=== PATIENT | male | born 1970 | race Caucasian/White ===

== ENCOUNTER 2020-05-04 16:39 | Inpatient (IN) | payer OTHER, SELFPAY ==
[2020-05-04] VITALS (43 sets, daily range): BP systolic 145–172; BP diastolic 95–108; PULSE 101–119; RESP 10–25; TEMP 36.1–36.4; O2SAT 0–100
--- NOTE | 2020-05-04 16:45 | RT.EKG_ITS ---
APPROVED REPORT Exam: Resting ECG Patient Location: E HR:113 bpm ECG Measurements Heart Rate 113 AXIS WI 145 P 23 QRSd 80 QRS 30 QT 304 T -5 QTc 417 Conclusion Sinus tachycardia, rate 113, LVH.
--- NOTE | 2020-05-04 16:49 | ED.GENADUL_ITS ---
Discharge Plan Disposition Patient Disposition: [facility] INPATIENT Condition: Serious Discharge Details Chief Complaint: Abd Prob Clinical Impression: DKA (diabetic ketoacidoses) Primary Care Provider: None,None ED Provider: Kayden Pascual Home Meds and New Rx's Prescriptions: No Action Lantus U-100 Insulin 100 UNITS/ML solution 44 unit SQ HS RF: 0 insulin aspart U-100 [Novolog PenFill U-100 Insulin] 100 UNIT/ML cartridge 1 - 10 unit SQ DIRECTED RF: 0 Medical Decision Making 49-year-old gentleman history of diabetes, both long-acting and sliding scale insulin, hypertension, pancreatitis, history of alcohol abuse, presents generally not feeling well for the past 6 days, worse over the past 3, has not taking any insulin or checked his glucose levels. Glucose upon arrival is in the mid 500s. Clinically he is tachycardic, appears dry. Clinically he appears more likely DKA than pancreatitis in my opinion. I do also question if there could be a component of intoxication or withdrawal. He denies any recent illness or trauma. Will obtain IV access, give 2 L IV fluid, initiate laboratory values, cardiac work-up, chest x-ray, EKG, VBG, reassess. Upon reevaluation heart rate is now 112. No significant change in his hypertension. He is requesting medication for his chronic back pain. Reports that he does occasionally take gabapentin or Flexeril but they do not really help. We will give 30 IV Toradol. Laboratory values reveal a white blood cell count of 7.16 hemoglobin 16.8 hematocrit 48.1 platelet count 173. INR 1.1 VBG pH 7.27, glucose 506, creatinine 1.27 with a GFR greater than 60. Magnesium 1.7 total bili 0.9 troponin less than 0.05 lipase 41. Sodium 127 potassium 3.8, dioxide 17.1, anion gap 18.9. Calcium 9.8 urinalysis greater than 160 ketones. Laboratory values are consistent with DKA. Patient will be given 10 IV insulin and initiate an insulin drip. Case to be discussed with our hospitalist team, Dr. Galaviz, for admission to our ICU. He evaluated the patient personally in the ER, is agreeable to admission. Medical Records Medical records reviewed: Yes I reviewed the patient's medical records. Imaging Data Radiologic Study: Attestation: I personally reviewed and interpreted this imaging study as follows: Imaging: X-Ray Radiologist's impression: No acute findings, chest Lab Data Lab results reviewed: Yes I reviewed the patient's lab results. Lab results narrative: Laboratory Tests Range/Units 05/04/20 05/04/20 05/04/20 17:00 17:00 17:00 WBC (4.4-10.8) 10^3/uL 7.16 RBC (4.36-5.78) 10^6/uL 5.38 Hgb (13.5-17.5) g/dL 16.8 Hct (40.0-50.0) % 48.1 MCV (80-95) fL 89.4 MCH (27.0-33.0) pg 31.2 MCHC (32.0-36.0) % 34.9 RDW (11.8-14.1) % 11.1 L Plt Count (130-400) 10^3/uL 173 MPV (8.0-11.0) fL 9.7 Immature Gran % 0.3 Neutrophils % 57.2 Lymphocytes % 33.5 Monocytes % 7.0 Eosinophils % 1.0 Basophils % 1.0 Nucleated RBC % % 0 Absolute Neutrophils (1.2-6.7) 10^3/uL 4.10 Absolute Lymphocytes (1.2-3.4) 10^3/uL 2.40 Absolute Monocytes (0.1-0.8) 10^3/uL 0.50 Absolute Eosinophils (0.0-0.7) 10^3/uL 0.07 Absolute Basophils (0.0-0.2) 10^3/uL 0.07 PT (9.3-11.0) sec 11.2 H INR (0.9-1.1) 1.1 APTT (21.0-27.5) sec 25.9 VBG pH (7.31-7.41) VBG pCO2 (41-51) mmHg VBG pO2 mmHg VBG HCO3 (23-28) mmol/L VBG Total CO2 (24-29) mmol/L VBG O2 Saturation % VBG Base Excess (-2-3) mmol/L Sodium (136-145) mmol/L 127 L Potassium (3.5-5.1) mmol/L 3.8 Chloride (98-107) mmol/L 91 L Carbon Dioxide (21.0-32.0) mmol/L 17.1 L Anion Gap (3-11) mmol/L 18.9 H BUN (7-18) mg/dL 12 Creatinine (0.70-1.30) mg/dL 1.27 Estimated GFR/1.73 m2 (mL/min/1.73m2) >= 60.00 Glucose (74-106) mg/dL 506 H* Calcium (8.5-10.1) mg/dL 9.8 Magnesium (1.8-2.4) mg/dL 1.7 L Total Bilirubin (0.2-1.0) mg/dL 0.9 AST (15-37) U/L 81 H ALT (16-63) U/L 80 H Alkaline Phosphatase (46-116) U/L 136 H Troponin I (<0.06) ng/mL < 0.05 Total Protein (6.4-8.2) g/dL 8.9 H Albumin (3.4-5.0) g/dL 4.3 Lipase (73-393) U/L 41 Urine Color (Yellow) Urine Clarity (Clear) Urine pH (5-8) Ur Specific [place] (1.005-1.025) Urine Protein (Negative) mg/dL Urine Ketones (Negative) mg/dL Urine Blood (Negative) Urine Nitrite (Negative) Urine Bilirubin (Negative) Urine Urobilinogen (Up TO 0.2) EU/dL Ur Leukocyte Esterase (Negative) Urine RBC (0-2) HPF Urine WBC (0-5) HPF Ur Epithelial Cells (Negative) HPF Urine Crystals (Negative) HPF Urine Bacteria (Negative) HPF Urine Casts (Negative) LPF Urine Mucus (Negative) Urine Other (Negative) Ur Culture Indicated? Urine Glucose (Negative) mg/dL Urine Opiates Screen (Negative) Urine Methadone Screen (Negative) Ur Barbiturates Screen (Negative) Ur Tricyclics Screen (Negative) Ur Amphetamines Screen (Negative) U Benzodiazepines Scrn (Negative) Urine Cocaine Screen (Negative) Ur THC Screen (Negative) Ethyl Alcohol (<3) mg/dL Range/Units 05/04/20 05/04/20 05/04/20 17:07 17:07 17:40 WBC (4.4-10.8) 10^3/uL RBC (4.36-5.78) 10^6/uL Hgb (13.5-17.5) g/dL Hct (40.0-50.0) % MCV (80-95) fL MCH (27.0-33.0) pg MCHC (32.0-36.0) % RDW (11.8-14.1) % Plt Count (130-400) 10^3/uL MPV (8.0-11.0) fL Immature Gran % Neutrophils % Lymphocytes % Monocytes % Eosinophils % Basophils % Nucleated RBC % % Absolute Neutrophils (1.2-6.7) 10^3/uL Absolute Lymphocytes (1.2-3.4) 10^3/uL Absolute Monocytes (0.1-0.8) 10^3/uL Absolute Eosinophils (0.0-0.7) 10^3/uL Absolute Basophils (0.0-0.2) 10^3/uL PT (9.3-11.0) sec INR (0.9-1.1) APTT (21.0-27.5) sec VBG pH (7.31-7.41) VBG pCO2 (41-51) mmHg VBG pO2 mmHg VBG HCO3 (23-28) mmol/L VBG Total CO2 (24-29) mmol/L VBG O2 Saturation % VBG Base Excess (-2-3) mmol/L Sodium (136-145) mmol/L Potassium (3.5-5.1) mmol/L Chloride (98-107) mmol/L Carbon Dioxide (21.0-32.0) mmol/L Anion Gap (3-11) mmol/L BUN (7-18) mg/dL Creatinine (0.70-1.30) mg/dL Estimated GFR/1.73 m2 (mL/min/1.73m2) Glucose (74-106) mg/dL Calcium (8.5-10.1) mg/dL Magnesium (1.8-2.4) mg/dL Total Bilirubin (0.2-1.0) mg/dL AST (15-37) U/L ALT (16-63) U/L Alkaline Phosphatase (46-116) U/L Troponin I (<0.06) ng/mL Total Protein (6.4-8.2) g/dL Albumin (3.4-5.0) g/dL Lipase (73-393) U/L Urine Color (Yellow) Yellow Urine Clarity (Clear) Clear Urine pH (5-8) 6.0 Ur Specific [place] (1.005-1.025) 1.020 Urine Protein (Negative) mg/dL Negative Urine Ketones (Negative) mg/dL >=160 H Urine Blood (Negative) Trace-intact H Urine Nitrite (Negative) Negative Urine Bilirubin (Negative) Small H Urine Urobilinogen (Up TO 0.2) EU/dL 1.0 H Ur Leukocyte Esterase (Negative) Negative Urine RBC (0-2) HPF 0-2 Urine WBC (0-5) HPF Negative Ur Epithelial Cells (Negative) HPF Negative Urine Crystals (Negative) HPF Negative Urine Bacteria (Negative) HPF Negative Urine Casts (Negative) LPF Negative Urine Mucus (Negative) Negative Urine Other (Negative) Negative Ur Culture Indicated? No Urine Glucose (Negative) mg/dL 500 H Urine Opiates Screen (Negative) Negative Urine Methadone Screen (Negative) Negative Ur Barbiturates Screen (Negative) Negative Ur Tricyclics Screen (Negative) Positive A Ur Amphetamines Screen (Negative) Negative U Benzodiazepines Scrn (Negative) Negative Urine Cocaine Screen (Negative) Negative Ur THC Screen (Negative) Negative Ethyl Alcohol (<3) mg/dL < 3.0 Range/Units 05/04/20 18:16 WBC (4.4-10.8) 10^3/uL RBC (4.36-5.78) 10^6/uL Hgb (13.5-17.5) g/dL Hct (40.0-50.0) % MCV (80-95) fL MCH (27.0-33.0) pg MCHC (32.0-36.0) % RDW (11.8-14.1) % Plt Count (130-400) 10^3/uL MPV (8.0-11.0) fL Immature Gran % Neutrophils % Lymphocytes % Monocytes % Eosinophils % Basophils % Nucleated RBC % % Absolute Neutrophils (1.2-6.7) 10^3/uL Absolute Lymphocytes (1.2-3.4) 10^3/uL Absolute Monocytes (0.1-0.8) 10^3/uL Absolute Eosinophils (0.0-0.7) 10^3/uL Absolute Basophils (0.0-0.2) 10^3/uL PT (9.3-11.0) sec INR (0.9-1.1) APTT (21.0-27.5) sec VBG pH (7.31-7.41) 7.27 L VBG pCO2 (41-51) mmHg 27 L VBG pO2 mmHg 116 VBG HCO3 (23-28) mmol/L 12 L VBG Total CO2 (24-29) mmol/L 11 L VBG O2 Saturation % 98 VBG Base Excess (-2-3) mmol/L -15 L Sodium (136-145) mmol/L Potassium (3.5-5.1) mmol/L Chloride (98-107) mmol/L Carbon Dioxide (21.0-32.0) mmol/L Anion Gap (3-11) mmol/L BUN (7-18) mg/dL Creatinine (0.70-1.30) mg/dL Estimated GFR/1.73 m2 (mL/min/1.73m2) Glucose (74-106) mg/dL Calcium (8.5-10.1) mg/dL Magnesium (1.8-2.4) mg/dL Total Bilirubin (0.2-1.0) mg/dL AST (15-37) U/L ALT (16-63) U/L Alkaline Phosphatase (46-116) U/L Troponin I (<0.06) ng/mL Total Protein (6.4-8.2) g/dL Albumin (3.4-5.0) g/dL Lipase (73-393) U/L Urine Color (Yellow) Urine Clarity (Clear) Urine pH (5-8) Ur Specific [place] (1.005-1.025) Urine Protein (Negative) mg/dL Urine Ketones (Negative) mg/dL Urine Blood (Negative) Urine Nitrite (Negative) Urine Bilirubin (Negative) Urine Urobilinogen (Up TO 0.2) EU/dL Ur Leukocyte Esterase (Negative) Urine RBC (0-2) HPF Urine WBC (0-5) HPF Ur Epithelial Cells (Negative) HPF Urine Crystals (Negative) HPF Urine Bacteria (Negative) HPF Urine Casts (Negative) LPF Urine Mucus (Negative) Urine Other (Negative) Ur Culture Indicated? Urine Glucose (Negative) mg/dL Urine Opiates Screen (Negative) Urine Methadone Screen (Negative) Ur Barbiturates Screen (Negative) Ur Tricyclics Screen (Negative) Ur Amphetamines Screen (Negative) U Benzodiazepines Scrn (Negative) Urine Cocaine Screen (Negative) Ur THC Screen (Negative) Ethyl Alcohol (<3) mg/dL ECG Data Attestation: I personally reviewed and interpreted this ECG (s) as follows: Interpretation: Please see official report by Dr. Ulloa. Sinus tachycardia, rate of 113, LVH HPI General Mode of arrival: ambulatory . Date/Time Provider Initiated Documentation: 05/04/20 16:41 . Limitations to Documentation: no limitations . Information obtained by: patient . HPI Narrative: This is a 49-year-old gentleman with a past medical history that includes hypertension, diabetes, hyponatremia, pancreatitis, history of alcohol abuse, presenting to the ER for multiple complaints. He reports that he did have 6 or 7 beers approximately 6 days ago. The following day he simply did not feel well, loss of appetite, generalized weakness, abdominal bloating, pain, nausea. Denies vomiting. He states that he had pancreatitis approximately 6 months ago and really has not drank much since then. Reports this feels somewhat similar to his pancreatitis. He states that he has not checked his blood sugar levels or taking any of his insulin over the past 3 days. He tells me that he was admitted to [facility] over the past couple of months for DKA, this to feel somewhat similar. He denies recent illness or trauma. He denies headache, visual change, neck pain, fever, chest pain, shortness of breath, diarrhea, constipation, dysuria, numbness, tingling, focal weakness. He does report chronic back pain Related Data Home Medications Medication Instructions Recorded Confirmed insulin aspart U-100 [Novolog] 1 - 10 unit SQ DIRECTED 07/08/15 05/04/20 insulin glargine [Lantus Vial] 44 unit SQ HS 07/08/15 05/04/20 Allergies Allergy/AdvReac Type Severity Reaction Status Date / Time No Known Allergies Allergy Unverified 05/04/20 17:05 Review of Systems Constitutional Constitutional: Reports fatigue and Denies fever(s) Eyes Eyes: Denies change in vision ENT Ears, Nose, Mouth, and Throat: Denies neck pain Cardiovascular Cardiovascular: Denies chest pain and Denies dyspnea Respiratory Respiratory: Denies cough and Denies dyspnea Gastrointestinal Gastrointestinal: Reports abdominal pain, Denies constipation, Denies diarrhea, Reports nausea and Denies vomiting Genitourinary Genitourinary: Denies dysuria Musculoskeletal Musculoskeletal: Reports back pain, Denies neck pain, Denies numbness and Denies tingling Integumentary/Breasts Skin/Breast: Denies rash Neurologic Neurologic: Denies numbness, Denies tingling and Reports weakness (Generalized) Endocrine Endocrine: Reports fatigue [facility] Social History Smoking/Tobacco Use Status: Current every day Tobacco Type: cigarettes Smoking risk assessment performed?: Yes Alcohol Intake: current Alcohol Intake frequency: holidays/special occasions only Drug use: Never Substance use type: does not use Do you feel safe at home: Yes Do you feel safe in your relationship?: Yes Exam Const General: cooperative and no acute distress Orientation: alert, awake and oriented x3 HENMT Head: normal to inspection, normocephalic and atraumatic Face and sinus: normal facial exam Mouth: moist mucous membranes abnormal (Dry) Eyes General: appearance normal, both eyes and all related structures Eyelids: eyelids normal Conjunctivae: conjunctivae normal Neck Neck: normal visual inspection, full ROM, no meningeal signs, trachea midline and supple Resp Effort & Inspection: normal respiratory effort and able to speak in complete sentences Auscultation: clear to auscultation bilaterally Cardio Rate: tachycardic (120s) Rhythm: regular rhythm GI Palpation: soft, not firm, no guarding and tender (Mild epigastric to moderate palpation) with no rebound tenderness Auscultation: normal bowel sounds Back/Spine/Pelvis Back: back tenderness (Diffuse mild lumbar) Skin General skin exam: no rashes or lesions noted Neuro General: patient alert, patient awake, patient oriented x3, moves all extremities and no focal motor deficits Cognition: normal cognition Speech: speech normal Gait: normal gait Motor: muscle tone normal throughout Sensory Exam: no sensory deficits noted Extrem General: normal to inspection, full ROM, capillary refill normal, no pedal edema and no calf tenderness Psych Appearance: grossly normal Mental Status: mental status grossly normal Critical Care Time Critical Care Time Critical Care Time: Yes Total Critical Care Time: 35 Attestation: Upon my evaluation, this patient had a high probability of clinically significant, life-threatening deterioration due to their current medical conditions, which required my direct attention, intervention, and personal management. I have personally provided greater than 30 minutes of critical care time exclusive of the time spend on separately billable procedure s. Time includes obtaining a history, examining the patient, pulse oximetry, review of laboratory data, radiology results, discussion with consultants, arranging urgent treatment with development of a management plan, evaluation of patient's response to treatment, and monitoring for potential decompensation. Interventions were performed as documented above.
--- NOTE | 2020-05-04 17:00 | DI.RAD_ITS ---
EXAM: XR CHEST 2V PA LATERAL CLINICAL HISTORY: abd pain. TECHNIQUE: 2D digital imaging was performed. COMPARISON: No exams were available for comparison FINDINGS: Heart size is normal. The mediastinum is not widened. Left lung is clear. There is minor subsegmental platelike atelectasis in the lower right lung field, probably in the right middle lobe. No confluent infiltrates. No pleural effusions. IMPRESSION: Very subtle subsegmental platelike atelectasis in the right lung base. DATA REPOSITORY: RADIATION DOSE DELIVERED:
[2020-05-04] MEDS: Normal Saline 1,000 ML 1000 ML IV ×3 (17:16→21:05)
[2020-05-04 17:17] LABS: Abs Immature Grans 0.02 10^3/uL (0.0-0.06); Absolute Basophil Count 0.07 10^3/uL (0.0-0.2); Absolute Eosinophil Count 0.07 10^3/uL (0.0-0.7); HCT 48.1 % (40.0-50.0); HGB 16.8 g/dL (13.5-17.5); Immature Grans % 0.3; Lymphocytes % 33.5; MCH 31.2 pg (27.0-33.0); MCHC 34.9 % (32.0-36.0); MCV 89.4 fL (80-95); MPV 9.7 fL (8.0-11.0); Neutrophils % 57.2; Nucleated RBC 0 %; Platelet Count 173 10^3/uL (130-400); RBC 5.38 10^6/uL (4.36-5.78); RDW 11.1 % (11.8-14.1); RDW-SD 36.2 fL; WBC 7.16 10^3/uL (4.4-10.8)
[2020-05-04 17:30] LABS: INR 1.1 (0.9-1.1); PTT Activated 25.9 sec (21.0-27.5); Prothrombin Time 11.2 sec (9.3-11.0)
[2020-05-04 17:32] LABS: ALT 80 U/L (16-63); AST 81 U/L (15-37); Albumin 4.3 g/dL (3.4-5.0); Alkaline Phosphatase 136 U/L (46-116); Anion Gap 18.9 mmol/L (3-11); BUN 12 mg/dL (7-18); Bilirubin, Total 0.9 mg/dL (0.2-1.0); CO2 17.1 mmol/L (21.0-32.0); CREATININE 1.27 mg/dL (0.70-1.30); Calcium 9.8 mg/dL (8.5-10.1); Chloride 91 mmol/L (98-107); Lipase 41 U/L (73-393); Magnesium 1.7 mg/dL (1.8-2.4); Potassium 3.8 mmol/L (3.5-5.1); Sodium 127 mmol/L (136-145); Total Protein 8.9 g/dL (6.4-8.2)
[2020-05-04 17:34] LABS: Bilirubin Small (Negative); Blood Trace-intact (Negative); Clarity Clear (Clear); Glucose 500 mg/dL (Negative); Ketones >=160 mg/dL (Negative); Leukocyte Esterase Negative (Negative); Nitrite Negative (Negative)
[2020-05-04 17:35] LABS: Glucose 506 mg/dL (74-106); Troponin I < 0.05 ng/mL (<0.06)
[2020-05-04] MEDS: Ketorolac 30 MG/ML VIAL IVP (17:44)
[2020-05-04 17:50] LABS: Bacteria Negative HPF (Negative); C & S Indicated? No; Casts Negative LPF (Negative); Crystals Negative HPF (Negative); Epithelial Cells Negative HPF (Negative); Mucus Negative (Negative); Other Cells Negative (Negative); RBC 0-2 HPF (0-2); WBC Negative HPF (0-5)
--- NOTE | 2020-05-04 18:10 | DI.VRAD_ITS ---
PROCEDURE INFORMATION: Exam: XR Chest, 2 Views Exam date and time: 05/04/2020 6:04 PM Age: 49 years old Clinical indication: Other: Pain TECHNIQUE: Imaging protocol: XR of the chest Views: 2 views. COMPARISON: No relevant prior studies available. FINDINGS: Lungs: Unremarkable. No consolidation. Pleural space: Unremarkable. No pleural effusion. No pneumothorax. Heart/Mediastinum: Unremarkable. No cardiomegaly. Bones/joints: Unremarkable. IMPRESSION: No acute findings. Dictated and Authenticated by: Breonna Pantoja MD. Ordering:LOYD Monique MD
[2020-05-04 18:22] LABS: BE (Venous) -15 mmol/L (-2-3); HCO3 (Venous) 12 mmol/L (23-28); O2 Sat (Venous) 98 %; TCO2 (Venous) 11 mmol/L (24-29); pCO2 (Venous) 27 mmHg (41-51); pH (Venous) 7.27 (7.31-7.41); pO2 (Venous) 116 mmHg
[2020-05-04] MEDS: Insulin REGULAR-Human 100 UNITS/ML UNIT 10 UNITS IV (18:55)
[2020-05-04 19:03] LABS: ETHANOL BLOOD < 3.0 mg/dL (<3)
--- NOTE | 2020-05-04 19:03 | W.PM.HP.N ---
Date of service: 05/04/20 Time of Service: 20:03 Assessment and Plan Assessment and plan (1) DKA (diabetic ketoacidoses): Status: Acute Assessment and plan: DKA. Will place on [place] protocol with insulin infusion at 0.1 unit/kg/hr with aggressive IV hydration. Will add potassium supplementation and monitor electrolytes q 2h for now. No clearly evident initial precipitant for symptoms but alcoholic gastritis most likely; will place on PPI. In turn the only evident precipitant for the DKA per se is the stopping of his insulin. History of Present Illness History of Present Illness Chief Complaint: weakness Narrative: 49 male with h/o DM. Listed as type 2 but does have h/o DKA in 2015 so he is likely better classified as GERALDO. Maintained on 44 Lantus plus SS. had some binge drinking about a week ago, and over past 4-5 days has noted some anorexia, slight epigastric discomfort (none right now) and generalized weakness. Stopped his insulin 2 days ago. In ER findings of note for glucose 506 with HCO3 18, ph 7.27 and urine + for ketones. Note prior h/o pancreatitis but Lipase normal today. Has been ordered for 10 units insulin and IVF. Admitted for further management. Review of Systems All systems reviewed & are unremarkable except as noted in HPI and below PFSH Social History Smoking/Tobacco Use Status: Current every day Tobacco Type: cigarettes Smoking risk assessment performed?: Yes Alcohol Intake: current Alcohol Intake frequency: holidays/special occasions only Drug use: Never Substance use type: does not use Do you feel safe at home: Yes Do you feel safe in your relationship?: Yes Meds Home Medications and Allergies Home Medications Medication Instructions Recorded Confirmed Type insulin aspart U-100 [Novolog] 1 - 10 unit SQ DIRECTED 07/08/15 05/04/20 History insulin glargine [Lantus Vial] 44 unit SQ HS 07/08/15 05/04/20 History Allergies Allergy/AdvReac Type Severity Reaction Status Date / Time No Known Allergies Allergy Unverified 05/04/20 17:05 Exam Narrative Exam Narrative: 149/106, 119, 36.1, 16, 99% RA. HEENT atraumatic; neck supple; lungs clear; heart tachy/regular; abdomen + BS soft and NT; extremities w/o edema; neuro Ox3, moves all 4s Results Labs Result diagrams: 05/04/20 17:00 05/04/20 17:00 Labs: Laboratory Results - last 24 hr 05/04/20 05/04/20 05/04/20 17:00 17:00 17:00 WBC 7.16 RBC 5.38 Hgb 16.8 Hct 48.1 MCV 89.4 MCH 31.2 MCHC 34.9 RDW 11.1 L Plt Count 173 MPV 9.7 Immature Gran % 0.3 Neutrophils % 57.2 Lymphocytes % 33.5 Monocytes % 7.0 Eosinophils % 1.0 Basophils % 1.0 Nucleated RBC % 0 Absolute Neutrophils 4.10 Absolute Lymphocytes 2.40 Absolute Monocytes 0.50 Absolute Eosinophils 0.07 Absolute Basophils 0.07 PT 11.2 H INR 1.1 APTT 25.9 VBG pH VBG pCO2 VBG pO2 VBG HCO3 VBG Total CO2 VBG O2 Saturation VBG Base Excess Sodium 127 L Potassium 3.8 Chloride 91 L Carbon Dioxide 17.1 L Anion Gap 18.9 H BUN 12 Creatinine 1.27 Estimated GFR/1.73 m2 >= 60.00 Glucose 506 H* Calcium 9.8 Magnesium 1.7 L Total Bilirubin 0.9 AST 81 H ALT 80 H Alkaline Phosphatase 136 H Troponin I < 0.05 Total Protein 8.9 H Albumin 4.3 Lipase 41 Urine Color Urine Clarity Urine pH Ur Specific [place] Urine Protein Urine Ketones Urine Blood Urine Nitrite Urine Bilirubin Urine Urobilinogen Ur Leukocyte Esterase Urine RBC Urine WBC Ur Epithelial Cells Urine Crystals Urine Bacteria Urine Casts Urine Mucus Urine Other Ur Culture Indicated? Urine Glucose 05/04/20 05/04/20 17:07 18:16 WBC RBC Hgb Hct MCV MCH MCHC RDW Plt Count MPV Immature Gran % Neutrophils % Lymphocytes % Monocytes % Eosinophils % Basophils % Nucleated RBC % Absolute Neutrophils Absolute Lymphocytes Absolute Monocytes Absolute Eosinophils Absolute Basophils PT INR APTT VBG pH 7.27 L VBG pCO2 27 L VBG pO2 116 VBG HCO3 12 L VBG Total CO2 11 L VBG O2 Saturation 98 VBG Base Excess -15 L Sodium Potassium Chloride Carbon Dioxide Anion Gap BUN Creatinine Estimated GFR/1.73 m2 Glucose Calcium Magnesium Total Bilirubin AST ALT Alkaline Phosphatase Troponin I Total Protein Albumin Lipase Urine Color Yellow Urine Clarity Clear Urine pH 6.0 Ur Specific [place] 1.020 Urine Protein Negative Urine Ketones >=160 H Urine Blood Trace-intact H Urine Nitrite Negative Urine Bilirubin Small H Urine Urobilinogen 1.0 H Ur Leukocyte Esterase Negative Urine RBC 0-2 Urine WBC Negative Ur Epithelial Cells Negative Urine Crystals Negative Urine Bacteria Negative Urine Casts Negative Urine Mucus Negative Urine Other Negative Ur Culture Indicated? No Urine Glucose 500 H Last Vital Signs Temp 36.1 C L 05/04/20 16:47 Pulse 119 H 05/04/20 16:47 Resp 16 05/04/20 16:47 BP 149/106 H 05/04/20 16:47 Pulse Ox 99 05/04/20 16:47 COVID-19 Screening Have you, or household traveled for leisure in last 14 days?: No Had IN PERSON contact w/suspected or confirmed C-19 person: No
[2020-05-04 19:05] LABS: *AMPHETAMINES SCREEN URINE Negative (Negative); *BARBITURATES SCREEN URINE Negative (Negative); *BENZODIAZEPINES SCREEN URINE Negative (Negative); Cannabinoids THC Negative (Negative); Cocaine Screen,Urine Negative (Negative); METHADONE URINE SCREEN Negative (Negative); OPIATES URINE SCREEN Negative (Negative); Tricyclic Antidepressants POSITIVE (Negative)
[2020-05-04] MEDS: INSULIN REGULAR IN 0.9 % NACL 100 UNIT/100 ML BAG IV (19:27)
[2020-05-04 20:34] LABS: Anion Gap 15.7 mmol/L (3-11); CO2 16.3 mmol/L (21.0-32.0); Chloride 100 mmol/L (98-107); Potassium 3.6 mmol/L (3.5-5.1); Sodium 132 mmol/L (136-145)
[2020-05-04 20:47] LABS: Troponin I < 0.05 ng/mL (<0.06)
[2020-05-04] MEDS: ACETAMINOPHEN 1,000 MG/100 ML BTL 400 MG IVPB (21:02)
[2020-05-04] MEDS: Normal Saline Flush 10 ML SYR IVP (21:06)
[2020-05-04] MEDS: Pantoprazole 40 MG VIAL IVP (21:10)
[2020-05-04 22:50] LABS: Anion Gap 16.5 mmol/L (3-11); CO2 15.5 mmol/L (21.0-32.0); Chloride 101 mmol/L (98-107); Potassium 3.4 mmol/L (3.5-5.1); Sodium 133 mmol/L (136-145)
[2020-05-04] MEDS: POTASSIUM CHLORIDE/0.9% NACL 1,000 ML 200 MEQ IV ×2 (22:55→23:55)
[2020-05-04] MEDS: oxyCODONE 5 MG TAB PO (23:52)
[2020-05-04] MEDS: Potassium Chloride 20 MEQ TABCR PO (23:53)
[2020-05-05] VITALS (30 sets, daily range): BP systolic 146–169; BP diastolic 93–112; PULSE 92–108; RESP 7–25; TEMP 35.9–36.6; O2SAT 93–100
[2020-05-05 01:09] LABS: Anion Gap 11.5 mmol/L (3-11); CO2 20.5 mmol/L (21.0-32.0); Chloride 102 mmol/L (98-107); Potassium 3.9 mmol/L (3.5-5.1); Sodium 134 mmol/L (136-145)
[2020-05-05] MEDS: POTASSIUM CHLORIDE/D5-0.9%NACL 1,000 ML 200 MEQ IV ×2 (01:51→06:56)
[2020-05-05 03:41] LABS: Anion Gap 9.2 mmol/L (3-11); CO2 23.8 mmol/L (21.0-32.0); Chloride 104 mmol/L (98-107); Sodium 137 mmol/L (136-145)
[2020-05-05] MEDS: oxyCODONE 5 MG TAB PO ×5 (03:56→20:19)
[2020-05-05 07:18] LABS: Chloride 102 mmol/L (98-107); Potassium 3.5 mmol/L (3.5-5.1); Sodium 137 mmol/L (136-145)
[2020-05-05] MEDS: Lisinopril 10 MG TAB PO (08:18)
[2020-05-05 09:41] LABS: Anion Gap 6.1 mmol/L (3-11); BUN 5 mg/dL (7-18); CO2 24.9 mmol/L (21.0-32.0); Calcium 8.1 mg/dL (8.5-10.1); Chloride 102 mmol/L (98-107); Glucose 127 mg/dL (74-106); Potassium 3.4 mmol/L (3.5-5.1); Sodium 133 mmol/L (136-145)
--- NOTE | 2020-05-05 10:58 | W.PM.PROGNOT ---
Date of Service Date of service: 05/05/20 Time of Service: 10:58 Assessment and Plan Assessment and plan (1) DKA (diabetic ketoacidoses): Status: Acute Assessment and plan: Repeat BMP at noon and if anion gap remains closed we will start basal bolus insulin. His home dose of Lantus is 44 units nightly and he takes NovoLog with a 1:10 ratio of insulin to carbohydrates. He also uses a sliding scale at a ratio of 1:30 for any glucose readings above 150 mg/dL. If he continues to tolerate his diet his anion gap does not increase over the course the afternoon he could potentially be discharged home this evening. Qualifiers: Diabetes mellitus type: other specified (including KRYS) Diabetes mellitus complication detail: without coma Qualified Code(s): E13.10 - Other specified diabetes mellitus with ketoacidosis without coma (2) Essential hypertension: Status: Acute Assessment and plan: Patient is carried a history of hypertension on his chart but he is currently not on any medications at home. Patient will be started on lisinopril 10 mg daily due to persistent hypertension here in the hospital. Subjective Subjective Interval history since last seen: See admission H&P from last night for details. In summary this 49-year-old male with late onset type 1 diabetes mellitus presented to the emergency department in diabetic ketoacidosis after discontinuing his insulin about 3 days ago. He states he quit taking his insulin because he was nauseated and was having trouble now keeping food down. He figured since he was not eating he should not take his insulin. This was preceded by a binge of drinking. He had had several beers couple days prior to that. He has a former history of alcoholism but has been abstinent for a long time until that episode of binge drinking. He denies any fevers chills and presently denies any nausea or vomiting and is actually hungry and wants to eat. He has been on insulin drip at 2 units an hour and his blood sugars by fingerstick this morning were 119 at 8 AM and 137 at 9 AM. His anion gap had been closing last night was down to 9.2 at 3 AM but at 6:50 AM his anion gap went up to 14. No further BMPs were ordered by the night hospitalist. I have ordered repeat BMP at 9 AM and it is since come back showing his anion gap down to 6.1 with a glucose of 127 and potassium of 3.4. He is receiving IV and oral potassium replacement. I will get another BMP at noon time and if his anion gap remains closed I will make the conversion over to basal bolus insulin and stop his drip after an overlap of 90 minutes. Patient denies any antecedent chest pain or dyspnea or fever or chills and has not been around any ill people. He lives with his mother and his girlfriend. They have all been healthy. Exam Narrative Exam Narrative: Middle-age male alert and oriented person place time circumstance sitting up in bed eating his breakfast. Lungs clear to auscultation. Heart regular rate and rhythm without murmur rub or gallop. Abdomen soft nondistended normal active bowel sounds nontender no guarding or rebound tenderness. Extremities without peripheral cyanosis or edema. He has some calluses on his feet but there is no open sores on his feet or toes. Objective Last Vital Signs Temp 35.9 C L 05/05/20 08:00 Pulse 99 H 05/05/20 07:27 Resp 20 05/05/20 07:27 BP 160/107 H 05/05/20 07:27 Pulse Ox 98 05/05/20 07:27 Laboratory Results - last 24 hr 05/04/20 05/04/20 05/04/20 17:00 17:00 17:00 WBC 7.16 RBC 5.38 Hgb 16.8 Hct 48.1 MCV 89.4 MCH 31.2 MCHC 34.9 RDW 11.1 L Plt Count 173 MPV 9.7 Immature Gran % 0.3 Neutrophils % 57.2 Lymphocytes % 33.5 Monocytes % 7.0 Eosinophils % 1.0 Basophils % 1.0 Nucleated RBC % 0 Absolute Neutrophils 4.10 Absolute Lymphocytes 2.40 Absolute Monocytes 0.50 Absolute Eosinophils 0.07 Absolute Basophils 0.07 PT 11.2 H INR 1.1 APTT 25.9 VBG pH VBG pCO2 VBG pO2 VBG HCO3 VBG Total CO2 VBG O2 Saturation VBG Base Excess Sodium 127 L Potassium 3.8 Chloride 91 L Carbon Dioxide 17.1 L Anion Gap 18.9 H BUN 12 Creatinine 1.27 Estimated GFR/1.73 m2 >= 60.00 Glucose 506 H* Calcium 9.8 Magnesium 1.7 L Total Bilirubin 0.9 AST 81 H ALT 80 H Alkaline Phosphatase 136 H Troponin I < 0.05 Total Protein 8.9 H Albumin 4.3 Lipase 41 Urine Color Urine Clarity Urine pH Ur Specific [place] Urine Protein Urine Ketones Urine Blood Urine Nitrite Urine Bilirubin Urine Urobilinogen Ur Leukocyte Esterase Urine RBC Urine WBC Ur Epithelial Cells Urine Crystals Urine Bacteria Urine Casts Urine Mucus Urine Other Ur Culture Indicated? Urine Glucose Urine Opiates Screen Urine Methadone Screen Ur Barbiturates Screen Ur Tricyclics Screen Ur Amphetamines Screen U Benzodiazepines Scrn Urine Cocaine Screen Ur THC Screen Ethyl Alcohol 05/04/20 05/04/20 05/04/20 17:07 17:07 17:40 WBC RBC Hgb Hct MCV MCH MCHC RDW Plt Count MPV Immature Gran % Neutrophils % Lymphocytes % Monocytes % Eosinophils % Basophils % Nucleated RBC % Absolute Neutrophils Absolute Lymphocytes Absolute Monocytes Absolute Eosinophils Absolute Basophils PT INR APTT VBG pH VBG pCO2 VBG pO2 VBG HCO3 VBG Total CO2 VBG O2 Saturation VBG Base Excess Sodium Potassium Chloride Carbon Dioxide Anion Gap BUN Creatinine Estimated GFR/1.73 m2 Glucose Calcium Magnesium Total Bilirubin AST ALT Alkaline Phosphatase Troponin I Total Protein Albumin Lipase Urine Color Yellow Urine Clarity Clear Urine pH 6.0 Ur Specific [place] 1.020 Urine Protein Negative Urine Ketones >=160 H Urine Blood Trace-intact H Urine Nitrite Negative Urine Bilirubin Small H Urine Urobilinogen 1.0 H Ur Leukocyte Esterase Negative Urine RBC 0-2 Urine WBC Negative Ur Epithelial Cells Negative Urine Crystals Negative Urine Bacteria Negative Urine Casts Negative Urine Mucus Negative Urine Other Negative Ur Culture Indicated? No Urine Glucose 500 H Urine Opiates Screen Negative Urine Methadone Screen Negative Ur Barbiturates Screen Negative Ur Tricyclics Screen Positive A Ur Amphetamines Screen Negative U Benzodiazepines Scrn Negative Urine Cocaine Screen Negative Ur THC Screen Negative Ethyl Alcohol < 3.0 05/04/20 05/04/20 05/04/20 18:16 20:09 20:09 WBC RBC Hgb Hct MCV MCH MCHC RDW Plt Count MPV Immature Gran % Neutrophils % Lymphocytes % Monocytes % Eosinophils % Basophils % Nucleated RBC % Absolute Neutrophils Absolute Lymphocytes Absolute Monocytes Absolute Eosinophils Absolute Basophils PT INR APTT VBG pH 7.27 L VBG pCO2 27 L VBG pO2 116 VBG HCO3 12 L VBG Total CO2 11 L VBG O2 Saturation 98 VBG Base Excess -15 L Sodium 132 L Potassium 3.6 Chloride 100 Carbon Dioxide 16.3 L Anion Gap 15.7 H BUN Creatinine Estimated GFR/1.73 m2 Glucose Calcium Magnesium Total Bilirubin AST ALT Alkaline Phosphatase Troponin I < 0.05 Total Protein Albumin Lipase Urine Color Urine Clarity Urine pH Ur Specific [place] Urine Protein Urine Ketones Urine Blood Urine Nitrite Urine Bilirubin Urine Urobilinogen Ur Leukocyte Esterase Urine RBC Urine WBC Ur Epithelial Cells Urine Crystals Urine Bacteria Urine Casts Urine Mucus Urine Other Ur Culture Indicated? Urine Glucose Urine Opiates Screen Urine Methadone Screen Ur Barbiturates Screen Ur Tricyclics Screen Ur Amphetamines Screen U Benzodiazepines Scrn Urine Cocaine Screen Ur THC Screen Ethyl Alcohol 05/04/20 05/05/20 05/05/20 22:37 00:15 03:00 WBC RBC Hgb Hct MCV MCH MCHC RDW Plt Count MPV Immature Gran % Neutrophils % Lymphocytes % Monocytes % Eosinophils % Basophils % Nucleated RBC % Absolute Neutrophils Absolute Lymphocytes Absolute Monocytes Absolute Eosinophils Absolute Basophils PT INR APTT VBG pH VBG pCO2 VBG pO2 VBG HCO3 VBG Total CO2 VBG O2 Saturation VBG Base Excess Sodium 133 L 134 L 137 Potassium 3.4 L 3.9 4.0 Chloride 101 102 104 Carbon Dioxide 15.5 L 20.5 L 23.8 Anion Gap 16.5 H 11.5 H 9.2 BUN Creatinine Estimated GFR/1.73 m2 Glucose Calcium Magnesium Total Bilirubin AST ALT Alkaline Phosphatase Troponin I Total Protein Albumin Lipase Urine Color Urine Clarity Urine pH Ur Specific [place] Urine Protein Urine Ketones Urine Blood Urine Nitrite Urine Bilirubin Urine Urobilinogen Ur Leukocyte Esterase Urine RBC Urine WBC Ur Epithelial Cells Urine Crystals Urine Bacteria Urine Casts Urine Mucus Urine Other Ur Culture Indicated? Urine Glucose Urine Opiates Screen Urine Methadone Screen Ur Barbiturates Screen Ur Tricyclics Screen Ur Amphetamines Screen U Benzodiazepines Scrn Urine Cocaine Screen Ur THC Screen Ethyl Alcohol 05/05/20 05/05/20 06:50 09:23 WBC RBC Hgb Hct MCV MCH MCHC RDW Plt Count MPV Immature Gran % Neutrophils % Lymphocytes % Monocytes % Eosinophils % Basophils % Nucleated RBC % Absolute Neutrophils Absolute Lymphocytes Absolute Monocytes Absolute Eosinophils Absolute Basophils PT INR APTT VBG pH VBG pCO2 VBG pO2 VBG HCO3 VBG Total CO2 VBG O2 Saturation VBG Base Excess Sodium 137 133 L Potassium 3.5 3.4 L Chloride 102 102 Carbon Dioxide 21.0 24.9 Anion Gap 14.0 H 6.1 BUN 5 L Creatinine 0.90 Estimated GFR/1.73 m2 >= 60.00 Glucose 127 H D Calcium 8.1 L Magnesium Total Bilirubin AST ALT Alkaline Phosphatase Troponin I Total Protein Albumin Lipase Urine Color Urine Clarity Urine pH Ur Specific [place] Urine Protein Urine Ketones Urine Blood Urine Nitrite Urine Bilirubin Urine Urobilinogen Ur Leukocyte Esterase Urine RBC Urine WBC Ur Epithelial Cells Urine Crystals Urine Bacteria Urine Casts Urine Mucus Urine Other Ur Culture Indicated? Urine Glucose Urine Opiates Screen Urine Methadone Screen Ur Barbiturates Screen Ur Tricyclics Screen Ur Amphetamines Screen U Benzodiazepines Scrn Urine Cocaine Screen Ur THC Screen Ethyl Alcohol
[2020-05-05] MEDS: Potassium Chloride Liquid 20 MEQ PKT 40 MEQ PO (11:29)
--- NOTE | 2020-05-05 11:51 | PHACLINREV_ITS ---
Pharmacy Admission Review - Admission Clinical Review (Last Reviewed 05/04/20 @ 19:30 by ANTONIO Parsons) DKA (diabetic ketoacidoses) (Acute) No Known Allergies Allergy (Unverified 05/04/20 17:05) Height 5 ft 9 in Weight 77.8 kg DKA - Comments Comments/Follow Ups: Pt had stopped taking insulin and Lisinopril per MD, Alcohol binge. Not sure why OxyIR was ordered except for c/o chronic back pain, patient does not take pain meds in ambulatory setting - Renal Dosing Renal Dosing: BUN 5 mg/dL (7-18) L 05/05/20 09:23 Creatinine 0.90 mg/dL (0.70-1.30) 05/05/20 09:23 Medications needing adjustments: Reviewed (CrCl~100ml/min) - Anticoagulation Anticoagulation: Hgb 16.8 g/dL (13.5-17.5) 05/04/20 17:00 Hct 48.1 % (40.0-50.0) 05/04/20 17:00 Plt Count 173 10^3/uL (130-400) 05/04/20 17:00 INR 1.1 (0.9-1.1) 05/04/20 17:00 Creatinine 0.90 mg/dL (0.70-1.30) 05/05/20 09:23 DVT Prohphylaxis: N/A (mobilization, young age) - Opiate Usage Evaluate Pain Scale/Pains Meds: Reviewed (Oxy IR for ??? shift report states ch ronic back pain, does not use opiates at home) - Relevant Labs Sodium 133 mmol/L (136-145) L 05/05/20 09:23 Potassium 3.4 mmol/L (3.5-5.1) L 05/05/20 09:23 Chloride 102 mmol/L (98-107) 05/05/20 09:23 Magnesium 1.7 mg/dL (1.8-2.4) L 05/04/20 17:00 Electrolytes, C-Reactive P, ESR: Reviewed (Potassium ordered 20meq po TID, Mag has not been replaced at this time) - DM Control DM Control: Glucose 127 mg/dL (74-106) H D 05/05/20 09:23 Finger Stick Blood Glucose 183 Finger Stick Blood Glucose 137 Finger Stick Blood Glucose 119 Insulin Dosing: Reviewed (BG was 506 on admission, now down to 127 with repeat level afternoon-Insulin infusion per [place] protocol currently @ 2ml/hr. May be able to discontinue later today. Starting Lantus and Novolog with scale plus carb counting scale) - Heart Failure/MD Heart Failure/MD: Troponin I < 0.05 ng/mL (<0.06) 05/04/20 20:09 EF%, CODY's, B-Blockers, Diuretics: Reviewed (Lisinopril-hadn't been taking at home) - BP Control BP Control: Blood Pressure 160/107 Blood Pressure 168/107 Blood Pressure 169/112 Blood Pressure 164/101 Blood Pressure 159/112 Blood Pressure 164/99 Blood Pressure 158/107 Blood Pressure 146/96 Blood Pressure 168/108 If elevated: Reviewed (Lisinopril started today) - Qtc Review If Elevated: Reviewed (QTC 417) - Home Meds Home Med List reviewed: Reviewed (Lisinopril not listed as a home med, nothing prescribed for chronic pain)
--- NOTE | 2020-05-05 12:10 | PDOC.CMIN ---
- If Service Date Differs Date of service: 05/05/20 Time of Service: 14:47 Care Management Initial Assess REASON FOR HOSPITALIZATION:: DKA PAST MEDICAL HISTORY/PAST SURGICAL HISTORY:: Current everyday smoker, DM type 2 uncontrolled, hypokalemia, hypocalcemia, alcohol withdrawal, chronic pain, DKA, essential hypertension, phlegmon of pancreas, cervical adenitis, acute on chronic pancreatitis PREVIOUS FUNCTIONAL STATUS/SOCIAL/FAMILY SUPPORTS:: Gildardo resides in [place], [place] with his mother, adarsh and their eleven year old daughter who is currently being homeschooled. He remains independent at baseline in the community. CURRENT FUNCTIONAL STATUS:: Gildardo remains on M/S status in the ICU at this time. He was forthcoming with information and pleasant in interaction. ADVANCE DIRECTIVES:: None on file, reviewed with patient. Has patient been provided with info about the portal/API?: Yes Did the patient sign up for the portal?: No CODE STATUS:: Full Code INSURANCE COVERAGE / FINANCIAL ISSUES:: [employer]. [facility] CURRENT HOME/COMMUNITY SERVICES/EQUIPMENT:: Diabetic supplies, insulin dependent. PRIMARY CARE PHYSICIAN:: None currently; CM to follow protocol for PCP attachment. POTENTIAL DISCHARGE NEEDS:: PCP attachment, follow up appointment. PATIENT/FAMILY EDUCATION NEEDS:: Review discharge instructions, discuss Ask Me Three. ANTICIPATED BARRIERS TO DISCHARGE:: None identified. TRANSPORTATION:: Via private vehicle with family. PLAN:: Gildardo continues to be closely monitored. Anticipate he will return home when ready per MD. Gildardo reports previously engaging in diabetic education at [facility] [place] and feeling confident in managing his own illness. He reports he sometimes become tired of managing his diet and insulin and stops for awhile; resulting in increased illness. He is agreeable to attaching to a local PCP and [facility] but not [facility] to a provider. He will transport via private vehicle with family.
[2020-05-05 12:33] LABS: Anion Gap 7.1 mmol/L (3-11); BUN 5 mg/dL (7-18); CO2 23.9 mmol/L (21.0-32.0); CREATININE 0.81 mg/dL (0.70-1.30); Calcium 8.2 mg/dL (8.5-10.1); Chloride 100 mmol/L (98-107); Glucose 191 mg/dL (74-106); Potassium 4.1 mmol/L (3.5-5.1); Sodium 131 mmol/L (136-145)
[2020-05-05] MEDS: Normal Saline 1,000 ML 150 ML IV (13:40)
[2020-05-05] MEDS: Potassium Chloride Liquid 20 MEQ PKT PO ×2 (13:54→20:20)
[2020-05-05] MEDS: Insulin Aspart 300 UNITS/3 ML PEN 9 UNITS SC (13:54)
[2020-05-05] MEDS: Insulin Glargine 300 UNITS/3 ML PEN 44 UNITS SC (14:02)
[2020-05-05 15:27] LABS: BUN 4 mg/dL (7-18); CREATININE 0.92 mg/dL (0.70-1.30); Calcium 8.5 mg/dL (8.5-10.1); Chloride 99 mmol/L (98-107); Glucose 187 mg/dL (74-106); Potassium 3.7 mmol/L (3.5-5.1); Sodium 130 mmol/L (136-145)
[2020-05-05 17:01] LABS: Hemoglobin A1C 10.5 % (<5.7)
[2020-05-05] MEDS: Insulin Aspart 300 UNITS/3 ML PEN SC ×3 (17:58→21:39)
[2020-05-05 18:22] LABS: COMMENT (LAB VIEW ONLY) 31.98 mg/dL; Microalb ug/mg Crea 14.1 ug/mg Cr
[2020-05-05 20:02] LABS: Bilirubin Negative (Negative); Blood Trace-intact (Negative); Clarity Clear (Clear); Glucose 100 mg/dL (Negative); Ketones Negative (Negative); Leukocyte Esterase Negative (Negative); Nitrite Negative (Negative); PROTEIN < 6.0 mg/dL; Urobilinogen 0.2 EU/dL (Up TO 0.2)
[2020-05-05 20:03] LABS: COMMENT (LAB VIEW ONLY) 32.78 mg/dL
[2020-05-05 20:25] LABS: Epithelial Cells Negative HPF (Negative); RBC 0-2 HPF (0-2); WBC Negative HPF (0-5)
[2020-05-05 20:26] LABS: Bacteria Negative HPF (Negative); C & S Indicated? No; Casts Negative LPF (Negative); Crystals Negative HPF (Negative); Mucus Negative (Negative)
[2020-05-05] MEDS: Zolpidem 5 MG TAB PO (22:17)
[2020-05-05 22:57] LABS: COVID-19 RT-PCR UVMMC Result Negative (Negative)
[2020-05-06] VITALS (7 sets, daily range): BP systolic 141–147; BP diastolic 91–106; PULSE 97–112; RESP 13–16; O2SAT 95–99
[2020-05-06] MEDS: oxyCODONE 5 MG TAB PO ×4 (00:14→12:11)
[2020-05-06] MEDS: Zolpidem 5 MG TAB PO (00:18)
[2020-05-06 07:22] LABS: Anion Gap 11.1 mmol/L (3-11); BUN 5 mg/dL (7-18); CO2 23.9 mmol/L (21.0-32.0); CREATININE 0.67 mg/dL (0.70-1.30); Calcium 9.1 mg/dL (8.5-10.1); Chloride 98 mmol/L (98-107); Glucose 178 mg/dL (74-106); Potassium 3.3 mmol/L (3.5-5.1); Sodium 133 mmol/L (136-145)
[2020-05-06] MEDS: Potassium Chloride Liquid 20 MEQ PKT 40 MEQ PO (08:32)
[2020-05-06] MEDS: Potassium Chloride Liquid 20 MEQ PKT PO (08:32)
[2020-05-06] MEDS: Lisinopril 10 MG TAB PO (08:34)
[2020-05-06] MEDS: Pantoprazole 40 MG TABCR PO (08:34)
[2020-05-06] MEDS: Insulin Aspart 300 UNITS/3 ML PEN SC ×4 (08:40→12:16)
[2020-05-06 10:07] LABS: Potassium 4.4 mmol/L (3.5-5.1)
--- NOTE | 2020-05-06 10:34 | W.INDIABCONS ---
Date of service: 05/06/20 Time of Service: 10:35 Diabetes Inpatient Consult DESCRIPTION/ASSESSMENT: Paresh was referred to [facility] for diabetic inpatient counseling. Admitted for DKA with ER blood sugar of 509 mg/dl. Preceding event, Paresh had been drinking and had stopped taking insulin for 3 days due to feeling unwell and not eating. Paresh reports losing > 50 lbs in last year. Medical Chart review indicates, weight in 2016 at 260 lbs. BMI on high end of normal, Paresh wants to stay thin and thought his DM would go away if he lost weight. PMH: ETOH abuse, most recently relapsed, hx of ETOH induced pancreatitis. Home meds inlcude lantus 44 u SQ HS, 1 unit: 30 g carbs correction if > 150 mg/dl. Paresh reports he is not very good at taking care of my diabetes. Most recent A1C at 10.5% indicating average blood sugars o> 240 mg/dl. Reviewed risks of poorly controlled BS and discussed barriers towards managing diabetes. Paresh is interested in continuous glucose monitors so he does not need to use needles to check his BS. INTERVENTION: Provided education on DM including Hyper/hypoglycemia s/s with action plan for each scenario. Definition and types of CHO with examples, CHO counting, DM meal planning and label reading literature. Reviewed desirable BG levels with patient with food choices and portions for optimal outcomes. Provided contact information for this RD and encouraged to call with any f/u questions r/t to DM self management. CDM from kitchen has been helping to count CHO's and achieve intake of ~65g/CHO per meal period. Reviewed benefits of using a continuous glucose monitor and provided him with literature to bring to his PCP after discharge. Encouraged Paresh to follow up with [facility] for diabetes outpatient counseling. Educated Paresh that he needs to take his long acting insulin whether he eats or not. PLAN: conitnue CHO diet follow up with [facility] in outpatient setting and consider switching to a continuous glucose monitor for more frequent blood sugar values for PCP to evaluate and treat Time Spent in Nutritional Counseling and Treatment: 20 min
--- NOTE | 2020-05-06 11:08 | DSE_ITS ---
Date of service: 05/06/20 Time of Service: 11:11 DS: Diagnosis Discharge Diagnosis (1) DKA (diabetic ketoacidoses): Status: Resolved Asessment and Plan: Patient's Lantus was increased to 50 units at night. He'll continue doing carbohydrate coverage at a ratio of 1:10 along with his sliding scale and a ratio of 1:30 for glucose readings over 150. He is to monitor his blood sugars before meals and at bedtime as well as for the next week he should check 2-hour PC glucose as well to adjust his carbohydrate coverage. Patient was given a prescription for keto sticks (2) Essential hypertension: Status: Chronic Asessment and Plan: Patient had not been on any antihypertensives at the time of admission and was started on lisinopril 10 mg daily. He'll need further adjustment in his antihypertensive regimen. His blood pressures came down over his admission from systolic readings in the 160s to 170s and diastolic readings in the low 100s to his current reading of 141/91. Discharge Plan Disposition Patient Disposition: HOME Condition: Good Discharge Details Reason For Visit: DKA Admit Date/Time: 05/04/20 19:16 Admit Provider: Jose Galaviz Attending Provider: Jose Galaviz Primary Care Provider: None,None Hospital Course Hospital Course: 49-year-old male with insulin requiring diabetes mellitus and essential hypertension presented in diabetic ketoacidosis secondary to discontinuation of his insulin about 3 days prior. Patient had discontinued his insulin because of nausea and vomiting precipitated by recent binge of alcohol. See admission H&P for details. Patient was started on IV fluids and IV insulin with serial monitoring of his BMP and hourly fingerstick blood glucose. He was started on lisinopril for his hypertension. He was given antiemetics. As his DKA resolved nausea and vomiting ceased and he was able to tolerate a regular diet. He was started on lisinopril 10 mg daily for hypertension. He was converted back to basal bolus insulin. He was put on his usual dose of Lantus 44 units at night however this is going to be increased to 50 units upon discharge. He was placed on bolus insulin of NovoLog with carbohydrate coverage at a 1:10 ratio as well as insulin resistance sliding scale. His home sliding scale has included NovoLog at a ratio of 1 unit to 30 mg/dL rising glucose above 150 mg/dL. Patient did experience some hypokalemia which was treated with IV and oral supplementation. Patient had been getting his insulin from the [facility] in [place] however because he has no local primary care provider Case management is setting of up with a local primary care provider to follow him. Patient was given a prescription for lisinopril 10 mg daily upon discharge as well as prescriptions for ketone urine dipsticks and because he has some fungal skin infection involving his penis he was prescribed an antifungal cream. He is to continue monitor his blood sugars before meals and at bedtime and I suggested at least for a few days to check a 2-hour postprandial glucose to see if his carbohydrate coverage is adequate. Home Meds and New Rx's Prescriptions: New lisinopril 10 mg Tablet 10 mg PO QAM Qty: 90 RF: 0 luliconazole 1 % cream 1 applic topical DAILY 14 Days Qty: 60 RF: 0 (DME) Ketone Urine Test Strip See Rx Instructions .ROUTE .MEDSUPPLY Qty: 25 RF: 0 Continued insulin aspart U-100 [Novolog PenFill U-100 Insulin] 100 UNIT/ML cartridge 1 - 10 unit SQ DIRECTED RF: 0 Changed Lantus U-100 Insulin 100 UNITS/ML solution 50 unit SQ HS Qty: 0 RF: 0 Discharge Instructions Instructions: Diabetic Ketoacidosis (DC), Hypertension (DC) Activity:: Activity as Tolerated Equipment/Supplies:: No Equipment Needed Diet:: Carb Counting Discharge Orders Discharge Orders: Discharge Order (Routine); Ordered 05/06/20 Ordered By: Kayden Suero DS: Summary Status at Discharge Functional status at discharge: independent ambulation Overall status at discharge: patient is back to baseline Mental Status: mental status grossly normal Speech and Movement: speech and movement normal Mood: congruent mood Affect: normal affect Time Spent with Patient providing and/or coordinating discharge services: Greater than 30 minutes Exam Narrative Exam Narrative: Middle-age male is alert and oriented person place time circumstance eating breakfast. Exam is unchanged from yesterday. Psych Mental Status: mental status grossly normal Speech and Movement: speech and movement normal Mood: congruent mood Affect: normal affect DS: Data Vitals/I&O Vitals and I&O: Vital Signs Temperature 36.4 C L 05/05/20 23:45 Temperature Source Temporal Artery Scan 05/06/20 09:24 Pulse 98 H 05/06/20 08:00 Pulse 102 H 05/06/20 08:00 Respiratory Rate 13 05/06/20 08:00 Respiratory Effort Non-Labored 05/06/20 09:24 Respiratory Depth Normal 05/06/20 09:24 Respiratory Pattern Normal 05/06/20 09:24 Blood Pressure 141/91 H 05/06/20 08:00 Blood Pressure Mean 103 05/06/20 08:00 Blood Pressure Position Supine 05/06/20 04:12 Pulse Oximetry 97 05/06/20 08:00 Oxygen Delivery Method Room Air 05/06/20 09:24 Oxygen Flow Rate 0 05/06/20 09:24 Pain Level 7 05/06/20 09:24 Intake & Output 05/05/20 05/05/20 05/06/20 11:59 23:59 11:59 Intake Total 2287.907 / 5325.074 3037.167 / 5325.074 700 / 700 Output Total 1999 / 5565 3565 / 5565 1805 / 1805 Balance 287.907 / -239.926 -527.833 / -239.926 -1105 / -1105 Weight 77.8 kg 76.9 kg Intake: IV 1407.907 / 3305.074 1897.167 / 3305.074 Oral 880 / 2020 1140 / 2020 700 / 700 Output: Urine 1999 / 5565 3565 / 5565 1805 / 1805 Other: Urine Color Pale Pale Pale Yellow Yellow Yellow Urine Appearance Clear Clear Clear Urine Odor Normal None Normal Comment patient voids in urinal PRN Patient voiding via urinal. Patient voiding via urinal. Voiding Methods Urinal Bedside Commode Urinal Urinal Data Completed and Pending Labs on day of discharge: Labs from last 24 hours 05/06/20 05/06/20 05/05/20 09:54 06:28 16:43 Sodium 133 L Potassium 4.4 D 3.3 L Chloride 98 Carbon Dioxide 23.9 Anion Gap 11.1 H BUN 5 L Creatinine 0.67 L Estimated GFR/1.73 m2 >= 60.00 Glucose 178 H Hemoglobin A1c Calcium 9.1 Urine Color Urine Clarity Urine pH Ur Specific [place] Urine Protein Urine Ketones Urine Blood Urine Nitrite Urine Bilirubin Urine Urobilinogen Ur Leukocyte Esterase Urine RBC Urine WBC Ur Epithelial Cells Urine Crystals Urine Bacteria Urine Casts Urine Mucus Ur Culture Indicated? Ur Random Creatinine U Random Total Protein U [place] Prot/Creat Ratio Ur Creatinine mg/dL 31.98 Ur Microalbumin mg/L 4.5 Microalb/Creat Ratio 14.1 Urine Glucose SARS-CoV-2 (PCR) Nasopharyn COVID-19 PCR Ref Test Perform Site 05/05/20 05/05/20 05/05/20 16:40 16:40 15:07 Sodium Potassium Chloride Carbon Dioxide Anion Gap BUN Creatinine Estimated GFR/1.73 m2 Glucose Hemoglobin A1c 10.5 H Calcium Urine Color Yellow Urine Clarity Clear Urine pH 6.0 Ur Specific [place] 1.020 Urine Protein Negative Urine Ketones Negative Urine Blood Trace-intact H Urine Nitrite Negative Urine Bilirubin Negative Urine Urobilinogen 0.2 Ur Leukocyte Esterase Negative Urine RBC 0-2 Urine WBC Negative Ur Epithelial Cells Negative Urine Crystals Negative Urine Bacteria Negative Urine Casts Negative Urine Mucus Negative Ur Culture Indicated? No Ur Random Creatinine 32.78 U Random Total Protein < 6.0 U [place] Prot/Creat Ratio Ur Creatinine mg/dL Ur Microalbumin mg/L Microalb/Creat Ratio Urine Glucose 100 SARS-CoV-2 (PCR) Nasopharyn COVID-19 PCR Ref Test Perform Site 05/05/20 05/05/20 05/04/20 15:07 12:10 19:01 Sodium 130 L 131 L Potassium 3.7 4.1 D Chloride 99 100 Carbon Dioxide 23.0 23.9 Anion Gap 8.0 7.1 BUN 4 L 5 L Creatinine 0.92 0.81 Estimated GFR/1.73 m2 >= 60.00 >= 60.00 Glucose 187 H 191 H Hemoglobin A1c Calcium 8.5 8.2 L Urine Color Urine Clarity Urine pH Ur Specific [place] Urine Protein Urine Ketones Urine Blood Urine Nitrite Urine Bilirubin Urine Urobilinogen Ur Leukocyte Esterase Urine RBC Urine WBC Ur Epithelial Cells Urine Crystals Urine Bacteria Urine Casts Urine Mucus Ur Culture Indicated? Ur Random Creatinine U Random Total Protein U [place] Prot/Creat Ratio Ur Creatinine mg/dL Ur Microalbumin mg/L Microalb/Creat Ratio Urine Glucose SARS-CoV-2 (PCR) Negative Nasopharyn COVID-19 PCR Not Applicable Ref Test Perform Site [facility] lab COUNT INCLUDES THE [facility] Social History Smoking/Tobacco Use Status: Current every day Tobacco Type: cigarettes Smoking risk assessment performed?: Yes Alcohol Intake: current Alcohol Intake frequency: holidays/special occasions only Drug use: Never Substance use type: does not use Do you feel safe at home: Yes Do you feel safe in your relationship?: Yes
--- NOTE | 2020-05-06 15:06 | CMDISCH_ITS ---
LACE Index Scoring Tool - Questions: Length of Stay (in days): 2 Acuity (Admit via E.D.?): Yes Comorbidities: Diabetes w/o Complication E.D. Visits: 1 - Answers: Total Score: 7 Risk of Readmission: Low Risk Care Management Discharge Reason for Hospitalization: DKA Discharge Plan: Gildardo will return home when ready per MD. He is agreeable to attaching to a local PCP and [facility] not [facility]. CM faxed referral with DC summary to [facility] per PCP assignment protocol. Gildardo will transport via private vehicle with family. Patient/Family Education Needs: Review discharge instructions, discuss Ask Me Three to review self care needs upon discharge. Gildardo reports previously engaging in diabetic education at [facility] and feeling confident in managing his own illness.
--- NOTE | 2020-05-06 16:30 | CHAPLAIN ---
When I visited Paresh this morning, he said he was being discharged and his fiance or mom would be picking him up. We had a brief conversation.
== END 2020-05-06 12:45 | disposition home or self-care (01) | DRG 639 ==
LOC: ER 19:40 → ICU 20:24
PROVIDERS: Internal Medicine; Admitting Provider General Practice; Emergency Provider Physician Assistant; PCP Family Medicine; Visit Provider General Practice
DX: E10.10 Type 1 diabetes mellitus with ketoacidosis without coma (principal); I10 Essential (primary) hypertension; F17.210 Nicotine dependence, cigarettes, uncomplicated; Y63.6 Underdosing and nonadministration of necessary drug, medicament or biological substance; T38.3X6A Underdosing of insulin and oral hypoglycemic [antidiabetic] drugs, initial encounter; Z91.128 Patient's intentional underdosing of medication regimen for other reason; F10.21 Alcohol dependence, in remission
CPT/HCPCS: 36415; 36416; 80048; 80051; 80053; 80307; 82805; 82962; 83690; 93005; 96361; 96374; 96375; 99223; 99233; 99239; 99291; U0003; 71046; 80320; 81003; 81015; 82043; 82565; 82570; 83036; 83735; 84132; 84156; 84484; 85025; 85610; 85730; 93010; J0131; J1885

== ENCOUNTER 2020-06-26 20:34 | Inpatient (IN) | payer MEDICAID, SELFPAY ==
--- NOTE | 2020-06-26 20:30 | RT.EKG_ITS ---
APPROVED REPORT Exam: Resting ECG Patient Location: E HR:111 bpm ECG Measurements Heart Rate 111 AXIS DE 148 P 42 QRSd 82 QRS 56 QT 353 T 47 QTc 480 Conclusion Sinus tachycardia...rate> 99 Consider left ventricular hypertrophy...(S V1+R V5/V6) >3.50mV Physician: No stemi, no u waves
[2020-06-26 20:38] VITALS: BP 141/100; PULSE 117; RESP 18; TEMP 36.6; O2SAT 98
--- NOTE | 2020-06-26 20:41 | W.ED.GENAD ---
Discharge Plan Disposition Patient Disposition: [facility] INPATIENT Condition: Improving Discharge Details Chief Complaint: Diabetes Clinical Impression: DKA (diabetic ketoacidoses), Acute hyponatremia, Dehydration, Chronic back pain, Acidosis, Nausea Primary Care Provider: Mela Pascal ED Provider: Momo Leong Home Meds and New Rx's Prescriptions: No Action insulin aspart U-100 [Novolog PenFill U-100 Insulin] 100 UNIT/ML cartridge 1 - 10 unit SQ DIRECTED RF: 0 Lantus U-100 Insulin 100 UNITS/ML solution 50 unit SQ HS Qty: 0 RF: 0 (DME) Ketone Urine Test Strip See Rx Instructions .ROUTE .MEDSUPPLY Qty: 25 RF: 0 Medical Decision Making Upon my evaluation, this patient had a high probability of imminent or life-threatening deterioration, which required my direct attention, intervention, and personal management. I have personally provided 45 minutes of critical care time exclusive of time spent on separately billable procedures. Time includes review of laboratory data, radiology results, discussion with consultants, and monitoring for potential decompensation. Interventions were performed as documented. 49-year-old male with a past medical history of type 2 diabetes who is now insulin-dependent presents today for evaluation of ketonuria. Patient states that 3 days ago for a 48-hour. He forgot to take any insulin or check his glucose. Today he has felt nauseous, she describes a sour stomach, she has not eaten anything in his sugar has been reasonable, he has been taking his Lantus which was 50 units 3 hours ago and 23 units of his regular insulin throughout the day. He did check his urine and there was evidence of ketones, this is concerning, and he came in for further assessment. He denies any chest pain, shortness of breath, chest tightness. He denies any cough fever or chills. He denies any urinary complaints. No other complaints at this time. He does admit to his mother vomiting months and being sick to her stomach as well. Exam demonstrates notably dry mucous membranes nontender nonsurgical abdomen. We will evaluate for DKA, give insulin as indicated, notably rehydrate, monitor closely and reassess. 10:00 PM Initial laboratory work-up is returned, the patient has a mild acidosis with a pH of 7.1, potassium is normal at 4 6, bicarb is 12, anion gap is 22, renal function good, glucose 380. Troponin normal, lipase normal. We will continue to rehydrate, he has received 2 L of normal saline, will monitor closely. He is complaining of mild lower back pain which she states is chronic. Exam shows no signs or symptoms of cauda equina or other problem at this time. He states that he was lifting some heavy stuff earlier and felt like he slightly worsened his chronic back pain. With no concerning physical exam findings or symptoms otherwise we will give Lidoderm patch, NSAIDs, Valium as needed for muscle relaxant. Magnesium was 1.6, we will supplement this. 11 PM Repeat labs have returned, pH minimally improving at 7.19, bicarb still 12, sodium improving to 129, anion gap is slightly decreased to 20.7, glucose is now 108 on fingerstick. And so we will transition from normal saline to an amp of D50 in conjunction with D5 normal with 40 of K potassium is now 3.7 (D10 with normal saline is not available in house currently). 12:30 AM Repeat labs have returned, notable improvement, venous pH is now 7.25, bicarb up to 15, anion gap has notably diminished to 15. Initially there was not ICU availability here, that is no longer the case and we do have an ICU bed. Patient will be maintained on the drip for the time being, blood sugars remained stable with intermittent D50 administration and D5 normal saline. Potassium is being repleted slowly, discussed the case with Dr. Olivier, he agrees with the assessment and plan. I have extensively reviewed the treatment plan with the patient. I have addressed all patient concerns at this time. I have also discussed the plan with the admitting physician and they agree with the current assessment and plan and have agreed to assume responsibility for the patient. All parties demonstrate verbal understanding and agreement with our assessment and plan at this time. The documentation in this chart was dictated using [employer] dictation software. Please excuse any dictation errors. HPI General Date/Time Provider Initiated Documentation: 06/26/20 20:34. HPI Narrative: 49-year-old male with a past medical history of type 2 diabetes who is now insulin-dependent presents today for evaluation of ketonuria. Patient states that 3 days ago for a 48-hour. He forgot to take any insulin or check his glucose. Today he has felt nauseous, she describes a sour stomach, she has not eaten anything in his sugar has been reasonable, he has been taking his Lantus which was 50 units 3 hours ago and 23 units of his regular insulin throughout the day. He did check his urine and there was evidence of ketones, this is concerning, and he came in for further assessment. He denies any chest pain, shortness of breath, chest tightness. He denies any cough fever or chills. He denies any urinary complaints. No other complaints at this time. He does admit to his mother vomiting months and being sick to her stomach as well. Related Data Home Medications Medication Instructions Recorded Confirmed insulin aspart U-100 [Novolog 1 - 10 unit SQ DIRECTED 07/08/15 06/26/20 PenFill U-100 Insulin] Lantus U-100 Insulin 50 unit SQ HS #0 ml 05/06/20 06/26/20 acetone (urine) test [Ketone Urine #25 ea 05/06/20 Test] Previous Rx's Medication Instructions Recorded Lantus U-100 Insulin 50 unit SQ HS #0 ml 05/06/20 acetone (urine) test [Ketone Urine #25 ea 05/06/20 Test] Allergies Allergy/AdvReac Type Severity Reaction Status Date / Time No Known Allergies Allergy Unverified 05/04/20 17:05 General Stated Complaint: Diabetes CHARLINE: 3 Review of Systems All systems reviewed & are unremarkable except as noted in HPI and below PFSH Social History Smoking/Tobacco Use Status: Current every day Tobacco Type: cigarettes Smoking risk assessment performed?: Yes Alcohol Intake: current Alcohol Intake frequency: holidays/special occasions only Drug use: Never Substance use type: does not use Current gender identity: male Do you feel safe at home: Yes Do you feel safe in your relationship?: Yes Exam Narrative Exam Narrative: 1.Const: Well-nourished, Well-developed, appearing stated age 2.Eyes: PERRL, no conjunctival injection, and symmetrical lids. 3.ENT: Atraumatic external nose and ears. Notably dry MM. Neck: Symmetric, trachea midline, No thyromegaly. 4.CVS: +S1/S2, No murmurs or gallops. Peripheral pulses 2+ and equal in all extremities. Brisk capillary refill in all extremities. 5.RESP: Unlabored respiratory effort. Clear to auscultation bilaterally. No wheezes rales or rhonchi 6.GI: Soft, Nontender/Nondistended, No hepatosplenomegaly. No guarding or rebound. No signs of an acute surgical abdomen. 7.MSK: Normocephalic/Atraumatic, Extremities w/o deformity or ttp No cyanosis or clubbing, Normal movement of all extremities 8.Skin: Warm, Dry. No rashes or lesions. 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 Sensation grossly intact, no focal neurologic deficits. 10.Psych: (AAO) x3. Appropriate mood and affect Course Vital Signs Vital signs: Vital Signs Temperature 36.6 C 06/26/20 20:38 Pulse 117 H 06/26/20 20:38 Respiratory Rate 18 06/26/20 20:38 Blood Pressure 141/100 H 06/26/20 20:38 Pulse Oximetry 98 06/26/20 20:38 Temperature 36.6 C 06/26/20 20:38 Temperature Source Skin 06/26/20 20:38 Pulse 117 H 06/26/20 20:38 Respiratory Rate 18 06/26/20 20:38 Blood Pressure 141/100 H 06/26/20 20:38 Pulse Oximetry 98 06/26/20 20:38 Oxygen Delivery Method Room Air 06/26/20 20:38 Oxygen Flow Rate 0 06/26/20 20:38 Pain Level 0 06/26/20 20:38
[2020-06-26] MEDS: Normal Saline 1,000 ML 1000 ML IV ×3 (20:54→22:38)
[2020-06-26 20:56] LABS: HCO3 (Venous) 12 mmol/L (23-28); O2 Sat (Venous) 63 %; TCO2 (Venous) 11 mmol/L (24-29); pCO2 (Venous) 36 mmHg (41-51); pO2 (Venous) 35 mmHg
[2020-06-26] MEDS: Ondansetron 4 MG/2 ML VIAL IVP (20:58)
[2020-06-26 20:59] LABS: pH (Venous) 7.14 (7.31-7.41)
[2020-06-26 21:00] VITALS: BP 161/99; PULSE 111; RESP 18; O2SAT 99
[2020-06-26 21:01] LABS: Abs Immature Grans 0.01 10^3/uL (0.0-0.06); Absolute Basophil Count 0.14 10^3/uL (0.0-0.2); Absolute Eosinophil Count 0.02 10^3/uL (0.0-0.7); Absolute Lymphocyte Count 2.16 10^3/uL (1.2-3.4); Absolute Monocyte Count 0.51 10^3/uL (0.1-0.8); Eosinophils % 0.3; HCT 48.8 % (40.0-50.0); HGB 16.7 g/dL (13.5-17.5); Immature Grans % 0.1; Lymphocytes % 31.6; MCH 30.4 pg (27.0-33.0); MCHC 34.2 % (32.0-36.0); MCV 88.9 fL (80-95); MPV 9.2 fL (8.0-11.0); Monocytes % 7.5; Neutrophils % 58.5; Nucleated RBC 0 %; Platelet Count 273 10^3/uL (130-400); RBC 5.49 10^6/uL (4.36-5.78); RDW 11.6 % (11.8-14.1); RDW-SD 37.5 fL; WBC 6.84 10^3/uL (4.4-10.8)
[2020-06-26] MEDS: Insulin REGULAR-Human 100 UNITS/ML UNIT 7 UNITS IV (21:14)
[2020-06-26] MEDS: INSULIN REGULAR IN 0.9 % NACL 100 UNIT/100 ML BAG 7.2 UNIT IV (21:14)
[2020-06-26 21:17] LABS: ALT 91 U/L (16-63); AST 49 U/L (15-37); Albumin 4.6 g/dL (3.4-5.0); Alkaline Phosphatase 121 U/L (46-116); Anion Gap 22.5 mmol/L (3-11); BUN 8 mg/dL (7-18); CO2 12.5 mmol/L (21.0-32.0); CREATININE 1.3 mg/dL (0.70-1.30); Calcium 9.1 mg/dL (8.5-10.1); Chloride 88 mmol/L (98-107); Estimated GFR 58.92 (mL/min/1.73m2); Glucose 382 mg/dL (74-106); Lipase 186 U/L (73-393); Potassium 4.6 mmol/L (3.5-5.1); Total Protein 9.4 g/dL (6.4-8.2)
[2020-06-26 21:21] LABS: Sodium 123 mmol/L (136-145); Troponin I < 0.05 ng/mL (<0.06)
[2020-06-26 21:25] LABS: Magnesium 1.6 mg/dL (1.8-2.4)
[2020-06-26] MEDS: MAGNESIUM SULFATE 2 GM/50 ML BAG IVPB (21:52)
[2020-06-26 22:00] VITALS: BP 143/95; PULSE 109; RESP 16; O2SAT 99
[2020-06-26 22:30] LABS: HCO3 (Venous) 11 mmol/L (23-28); O2 Sat (Venous) 80 %; TCO2 (Venous) 10 mmol/L (24-29); pCO2 (Venous) 30 mmHg (41-51); pO2 (Venous) 45 mmHg
[2020-06-26] MEDS: Lidocaine 5% Patch 1 PATCH TP (22:30)
[2020-06-26] MEDS: Acetaminophen 500 MG TAB 1000 MG PO (22:30)
[2020-06-26] MEDS: Ketorolac 30 MG/ML VIAL IVP (22:30)
[2020-06-26 22:35] LABS: pH (Venous) 7.19 (7.31-7.41)
[2020-06-26] MEDS: diazePAM 10 MG/2 ML SYR 5 MG IVP (22:38)
[2020-06-26 22:43] LABS: Anion Gap 20.7 mmol/L (3-11); BUN 7 mg/dL (7-18); CO2 12.3 mmol/L (21.0-32.0); Calcium 8.5 mg/dL (8.5-10.1); Chloride 96 mmol/L (98-107); Potassium 3.7 mmol/L (3.5-5.1); Sodium 129 mmol/L (136-145)
[2020-06-26] MEDS: Dextrose 50%-Water 25 GM/50 ML SYR IVP (22:56)
[2020-06-26 22:58] LABS: Glucose 185 mg/dL (74-106)
[2020-06-26 23:03] LABS: Bilirubin Small (Negative); Blood Small (Negative); Clarity Clear (Clear); Glucose 500 mg/dL (Negative); Ketones >=160 mg/dL (Negative); Leukocyte Esterase Negative (Negative); Nitrite Negative (Negative); Specific Gravity >= 1.030 (1.005-1.025); Urobilinogen 0.2 EU/dL (Up TO 0.2)
[2020-06-26 23:04] VITALS: BP 132/92; PULSE 111; O2SAT 98
[2020-06-26 23:09] LABS: Bacteria Negative HPF (Negative); C & S Indicated? No; Casts Negative LPF (Negative); Crystals Negative HPF (Negative); Epithelial Cells Rare HPF (Negative); Mucus Negative (Negative); RBC 0-2 HPF (0-2); WBC Negative HPF (0-5)
[2020-06-26] MEDS: DEXTROSE 5%-0.9% SALINE 1,000 ML 250 ML IV (23:19)
[2020-06-27] VITALS (32 sets, daily range): BP systolic 110–175; BP diastolic 65–115; PULSE 95–120; RESP 11–29; TEMP 36.4–37.4; O2SAT 97–99
[2020-06-27] MEDS: Dextrose 50%-Water 25 GM/50 ML SYR IVP ×2 (00:16→03:10)
[2020-06-27 00:23] LABS: BE (Venous) -12 mmol/L (-2-3); HCO3 (Venous) 15 mmol/L (23-28); O2 Sat (Venous) 78 %; TCO2 (Venous) 14 mmol/L (24-29); pCO2 (Venous) 34 mmHg (41-51); pH (Venous) 7.25 (7.31-7.41); pO2 (Venous) 41 mmHg
[2020-06-27 00:36] LABS: Anion Gap 15.3 mmol/L (3-11); BUN 7 mg/dL (7-18); CO2 15.7 mmol/L (21.0-32.0); Calcium 8.1 mg/dL (8.5-10.1); Chloride 100 mmol/L (98-107); Glucose 140 mg/dL (74-106); Potassium 3.8 mmol/L (3.5-5.1); Sodium 131 mmol/L (136-145)
--- NOTE | 2020-06-27 01:18 | W.PM.HP.N ---
Date of service: 06/27/20 Time of Service: 01:18 Assessment and Plan Assessment and plan (1) DKA (diabetic ketoacidoses): Start date: 06/27/20 Status: Acute Assessment and plan: This is a 49-year-old gentleman who recently has been noncompliant with insulin treatment which appears to show poor insight. He does have the ability to test for ketones in his urine and had positive ketones prompting him to come to the ED for evaluation. He also had a sour stomach and did not feel well. He was in DKA and was started on an insulin infusion with IV fluid resuscitation. He is slowly responding and has had no evidence of change in mentation. He will continue on the insulin infusion until his acidosis is cleared with adjustment of fluid resuscitation for hyponatremia and hypokalemia if occurs. He is a full code. He is acting more as a type I diabetic having lost weight when he was diagnosed with diabetes and having DKA. Diabetic education needs to be ongoing. Qualifiers: Diabetes mellitus complication detail: without coma Diabetes mellitus type: type 2 Qualified Code(s): E11.10 - Type 2 diabetes mellitus with ketoacidosis without coma (2) Diabetes mellitus type 2, uncontrolled, without complications: Status: Chronic Assessment and plan: Patient needs diabetic education and needs to think of himself as a type I diabetic and cannot do without insulin. (3) Chronic back pain: Status: Chronic Assessment and plan: Patient is disabled by his low back pain for 20 years and is a [place] . Short-term he will have oxycodone as needed for severe pain and lidocaine patch. Avoid NSAIDs while in DKA to avoid stressing his renal function. Long-term he should follow up with pain clinic/spine center for more definitive treatment. He also needs to establish with a local physician. Qualifiers: Back pain location: low back pain Back pain laterality: right Sciatica presence: without sciatica Qualified Code(s): M54.5 - Low back pain; G89.29 - Other chronic pain History of Present Illness History of Present Illness Chief Complaint: DKA, Chronic low back pain Narrative: This is a 49-year-old male patient who has a history of onset diabetes about 5 years ago where he lost weight and is acting more like a type 2 diabetes on insulin but the patient not taking his NSAID for a couple of days because he was busy. He does have chronic low back pain for 20 years and is disabled as a of the [place]. He was offered surgery for his low back pain many years ago and was at one time on oxycodone but did not want to take a bunch of pills. When I reviewed his case he was marked in his low back pain than his DKA. He was alert and not confused and his DKA state and was on the [place] Protocol for treatment and slowly responding. He stated that he was feeling dry but no other complaints with review of systems. See ED note for specifics of the patient's recent treatment of his diabetes. He did take his Lantus just prior to admission and was taking some regular insulin throughout the day of admission. Review of Systems Narrative: 13 point review of systems otherwise unrevealing or stable. [facility] Medical History (Updated 06/27/20 @ 07:18 by Jose Olivier) Chronic back pain Diabetes mellitus type 2, uncontrolled, without complications Social History Smoking/Tobacco Use Status: Current every day Tobacco Type: cigarettes Smoking risk assessment performed?: Yes Alcohol Intake: current Alcohol Intake frequency: holidays/special occasions only Drug use: Never Substance use type: does not use Current gender identity: male Do you feel safe at home: Yes Do you feel safe in your relationship?: Yes Meds Home Medications and Allergies Home Medications Medication Instructions Recorded Confirmed Type insulin aspart U-100 [Novolog 1 - 10 unit SQ DIRECTED 07/08/15 06/26/20 History PenFill U-100 Insulin] Lantus U-100 Insulin 50 unit SQ HS #0 ml 05/06/20 06/26/20 Rx acetone (urine) test [Ketone Urine #25 ea 05/06/20 Rx Test] Allergies Allergy/AdvReac Type Severity Reaction Status Date / Time No Known Allergies Allergy Unverified 05/04/20 17:05 Exam Narrative Exam Narrative: General: Patient is alert and oriented x3 and in no acute distress. He appears uncomfortable with his low back pain. He appears appropriate for age. HEENT: Normocephalic, eyes with pupils equal and reactive to light symmetrically, extraocular movement intact and sclera anicteric. Oropharynx with dry mucosa. External ears and nose normal. Neck: Supple without JVD. Lungs: Fair ration and clear to auscultation percussion. Back: Stooped posture, tender to palpation over the lower lumbar spine and over the right SI joint area. No CVA tenderness. Heart: Tachycardic rate, normal rhythm with no murmurs or gallops appreciated. Abdomen: Slightly obese contour, soft and nontender to palpation with no palpable hepatosplenomegaly. Bowel sounds positive all quadrants. Genitalia/rectal: Exam deferred. Extremities: Without clubbing, cyanosis or edema. Peripheral pulses intact. Skin: Brown, warm and dry with slightly decreased turgor. Neuro: Cranial nerves II through XII gross intact, no focal motor deficits. Psych: Rumination over back pain and light of a serious disease such as DKA but seems inappropriate. Slightly flattened affect but normal mood and no abnormal thought processes other than rumination. Remote and recent memory appear intact. Results Labs Result diagrams: 06/26/20 20:45 06/27/20 04:10 Labs: Laboratory Results - last 24 hr 06/26/20 06/26/20 06/26/20 20:45 20:45 20:45 WBC 6.84 RBC 5.49 Hgb 16.7 Hct 48.8 MCV 88.9 MCH 30.4 MCHC 34.2 RDW 11.6 L Plt Count 273 MPV 9.2 Immature Gran % 0.1 Neutrophils % 58.5 Lymphocytes % 31.6 Monocytes % 7.5 Eosinophils % 0.3 Basophils % 2.0 Nucleated RBC % 0 Absolute Neutrophils 4.00 Absolute Lymphocytes 2.16 Absolute Monocytes 0.51 Absolute Eosinophils 0.02 Absolute Basophils 0.14 VBG pH 7.14 L* VBG pCO2 36 L VBG pO2 35 VBG HCO3 12 L VBG Total CO2 11 L VBG O2 Saturation 63 VBG Base Excess < -15 L Sodium 123 L* Potassium 4.6 Chloride 88 L Carbon Dioxide 12.5 L Anion Gap 22.5 H BUN 8 Creatinine 1.3 Estimated GFR/1.73 m2 58.92 Glucose 382 H Calcium 9.1 Magnesium Total Bilirubin 1.0 AST 49 H ALT 91 H Alkaline Phosphatase 121 H Troponin I < 0.05 Total Protein 9.4 H Albumin 4.6 Lipase 186 Urine Color Urine Clarity Urine pH Ur Specific [place] Urine Protein Urine Ketones Urine Blood Urine Nitrite Urine Bilirubin Urine Urobilinogen Ur Leukocyte Esterase Urine RBC Urine WBC Ur Epithelial Cells Urine Crystals Urine Bacteria Urine Casts Urine Mucus Ur Culture Indicated? Urine Glucose 06/26/20 06/26/20 06/26/20 20:45 22:20 22:20 WBC RBC Hgb Hct MCV MCH MCHC RDW Plt Count MPV Immature Gran % Neutrophils % Lymphocytes % Monocytes % Eosinophils % Basophils % Nucleated RBC % Absolute Neutrophils Absolute Lymphocytes Absolute Monocytes Absolute Eosinophils Absolute Basophils VBG pH 7.19 L* VBG pCO2 30 L VBG pO2 45 VBG HCO3 11 L VBG Total CO2 10 L VBG O2 Saturation 80 VBG Base Excess < -15 L Sodium 129 L Potassium 3.7 Chloride 96 L Carbon Dioxide 12.3 L Anion Gap 20.7 H BUN 7 Creatinine 1.0 Estimated GFR/1.73 m2 >= 60.00 Glucose 185 H D Calcium 8.5 Magnesium 1.6 L Total Bilirubin AST ALT Alkaline Phosphatase Troponin I Total Protein Albumin Lipase Urine Color Urine Clarity Urine pH Ur Specific [place] Urine Protein Urine Ketones Urine Blood Urine Nitrite Urine Bilirubin Urine Urobilinogen Ur Leukocyte Esterase Urine RBC Urine WBC Ur Epithelial Cells Urine Crystals Urine Bacteria Urine Casts Urine Mucus Ur Culture Indicated? Urine Glucose 06/26/20 06/27/20 06/27/20 22:45 00:20 00:20 WBC RBC Hgb Hct MCV MCH MCHC RDW Plt Count MPV Immature Gran % Neutrophils % Lymphocytes % Monocytes % Eosinophils % Basophils % Nucleated RBC % Absolute Neutrophils Absolute Lymphocytes Absolute Monocytes Absolute Eosinophils Absolute Basophils VBG pH 7.25 L VBG pCO2 34 L VBG pO2 41 VBG HCO3 15 L VBG Total CO2 14 L VBG O2 Saturation 78 VBG Base Excess -12 L Sodium 131 L Potassium 3.8 Chloride 100 Carbon Dioxide 15.7 L Anion Gap 15.3 H BUN 7 Creatinine 1.0 Estimated GFR/1.73 m2 >= 60.00 Glucose 140 H Calcium 8.1 L Magnesium Total Bilirubin AST ALT Alkaline Phosphatase Troponin I Total Protein Albumin Lipase Urine Color Yellow Urine Clarity Clear Urine pH 6.0 Ur Specific [place] >= 1.030 H Urine Protein 100 H Urine Ketones >=160 H Urine Blood Small H Urine Nitrite Negative Urine Bilirubin Small H Urine Urobilinogen 0.2 Ur Leukocyte Esterase Negative Urine RBC 0-2 Urine WBC Negative Ur Epithelial Cells Rare Urine Crystals Negative Urine Bacteria Negative Urine Casts Negative Urine Mucus Negative Ur Culture Indicated? No Urine Glucose 500 H Last Vital Signs Temp 36.6 C 06/26/20 20:38 Pulse 103 H 06/27/20 00:00 Resp 16 06/26/20 22:00 BP 159/98 H 06/27/20 00:00 Pulse Ox 98 06/27/20 00:00 COVID-19 Screening Have you, or household traveled for leisure in last 14 days?: No Had IN PERSON contact w/suspected or confirmed C-19 person: No
[2020-06-27 02:18] LABS: BE (Venous) -10 mmol/L (-2-3); HCO3 (Venous) 17 mmol/L (23-28); O2 Sat (Venous) 97 %; TCO2 (Venous) 15 mmol/L (24-29); pCO2 (Venous) 35 mmHg (41-51); pH (Venous) 7.28 (7.31-7.41); pO2 (Venous) 85 mmHg
[2020-06-27 02:31] LABS: Anion Gap 12.2 mmol/L (3-11); BUN 7 mg/dL (7-18); CO2 17.8 mmol/L (21.0-32.0); Calcium 7.8 mg/dL (8.5-10.1); Chloride 103 mmol/L (98-107); Glucose 156 mg/dL (74-106); Potassium 3.9 mmol/L (3.5-5.1); Sodium 133 mmol/L (136-145)
[2020-06-27] MEDS: POTASSIUM CHLORIDE/D5-0.9%NACL 1,000 ML 250 MEQ IV (03:10)
--- NOTE | 2020-06-27 03:22 | NUR.NOTE ---
Blood sugar 95. Provided with crackers and juice. med a/o
[2020-06-27 04:22] LABS: Anion Gap 12.2 mmol/L (3-11); BUN 5 mg/dL (7-18); CO2 18.8 mmol/L (21.0-32.0); CREATININE 1.1 mg/dL (0.70-1.30); Calcium 8.1 mg/dL (8.5-10.1); Chloride 104 mmol/L (98-107); Glucose 130 mg/dL (74-106); Potassium 3.9 mmol/L (3.5-5.1); Sodium 135 mmol/L (136-145)
[2020-06-27] MEDS: INSULIN REGULAR IN 0.9 % NACL 100 UNIT/100 ML BAG 7.2 UNIT IV (04:36)
[2020-06-27] MEDS: Acetaminophen 325 MG TAB 650 MG PO ×4 (05:07→21:52)
[2020-06-27] MEDS: Normal Saline Flush 10 ML SYR (05:30)
[2020-06-27] MEDS: Dextrose 50%-Water 25 GM/50 ML SYR (05:30)
[2020-06-27 07:04] LABS: Abs Immature Grans 0.01 10^3/uL (0.0-0.06); Absolute Eosinophil Count 0.05 10^3/uL (0.0-0.7); Absolute Lymphocyte Count 2.16 10^3/uL (1.2-3.4); Absolute Monocyte Count 0.74 10^3/uL (0.1-0.8); Absolute Neutrophil Count 2.44 10^3/uL (1.2-6.7); Basophils % 1.8; Eosinophils % 0.9; HCT 37.1 % (40.0-50.0); HGB 13.2 g/dL (13.5-17.5); Immature Grans % 0.2; Lymphocytes % 39.3; MCH 30.4 pg (27.0-33.0); MCHC 35.6 % (32.0-36.0); MCV 85.5 fL (80-95); Monocytes % 13.5; Neutrophils % 44.3; Nucleated RBC 0 %; Platelet Count 205 10^3/uL (130-400); RBC 4.34 10^6/uL (4.36-5.78); RDW 11.5 % (11.8-14.1); RDW-SD 36.4 fL
[2020-06-27 07:05] LABS: Magnesium 1.8 mg/dL (1.8-2.4)
[2020-06-27 07:09] LABS: PHOSPHORUS < 2.0 mg/dL (2.6-4.7)
[2020-06-27 07:11] LABS: ALT 62 U/L (16-63); AST 36 U/L (15-37); Albumin 3.4 g/dL (3.4-5.0); Alkaline Phosphatase 87 U/L (46-116); Anion Gap 10.9 mmol/L (3-11); BUN 5 mg/dL (7-18); Bilirubin, Total 0.8 mg/dL (0.2-1.0); CO2 20.1 mmol/L (21.0-32.0); CREATININE 0.9 mg/dL (0.70-1.30); Calcium 8.3 mg/dL (8.5-10.1); Chloride 106 mmol/L (98-107); Glucose 109 mg/dL (74-106); Sodium 137 mmol/L (136-145); Total Protein 6.8 g/dL (6.4-8.2)
[2020-06-27 08:18] LABS: Anion Gap 9.9 mmol/L (3-11); BUN 5 mg/dL (7-18); CO2 19.1 mmol/L (21.0-32.0); CREATININE 0.9 mg/dL (0.70-1.30); Chloride 107 mmol/L (98-107); Glucose 95 mg/dL (74-106); Potassium 3.9 mmol/L (3.5-5.1); Sodium 136 mmol/L (136-145)
[2020-06-27] MEDS: POTASSIUM CHLORIDE/D5-0.9%NACL 1,000 ML 200 MEQ IV (08:26)
[2020-06-27] MEDS: Enoxaparin 40 MG/0.4 ML SYR SC (10:11)
[2020-06-27] MEDS: oxyCODONE 5 MG TAB PO ×4 (10:11→21:52)
[2020-06-27] MEDS: Mylanta Suspension 30 ML CUP PO (11:02)
[2020-06-27] MEDS: Insulin Glargine 300 UNITS/3 ML PEN 50 UNITS SC (11:07)
--- NOTE | 2020-06-27 12:43 | INITIAL_ITS ---
- If Service Date Differs Date of service: 06/27/20 Time of Service: 12:43 Care Management Initial Assess REASON FOR HOSPITALIZATION:: DKA PAST MEDICAL HISTORY/PAST SURGICAL HISTORY:: Medical History (Updated 06/27/20 @ 07:18 by Jose Olivier). Chronic back pain. Diabetes mellitus type 2, uncontrolled, without complications PREVIOUS FUNCTIONAL STATUS/SOCIAL/FAMILY SUPPORTS:: Gildardo lives on a farm in [place], [place] with his mother, adarsh and daughter. In addition he has 4 grown children. None of them live closer than [place] but they keep in touch regularly. Gildardo has a disability related to a back injury that occurred when he was in the and receives disability pay from the [employer]. He also receives food stamps. Gildardo states that he gets around pretty well and does not require any assistive devices for ambulation. CURRENT FUNCTIONAL STATUS:: Gildardo was sitting up in bed when CM met with him. He was pleasant and engaged readily with CM and was willing to converse. Gildardo discussed his diabetes and desire for a continuous glucose monitor. He admitted that he sometimes forgets to check his sugar or take his insulin. He stated that the last time he was here at [facility] he was supposed to get a new PCP but may not have followed up and consequently, still has no PCP. CM explained the process used to establish with a new PCP and assured him we would help set up th first appointment. He informed CM that he feels comfortable with his knowledge about diabetes and his care. ADVANCE DIRECTIVES:: none on file - not interested CODE STATUS:: Full Code INSURANCE COVERAGE / FINANCIAL ISSUES:: Medicaid CURRENT HOME/COMMUNITY SERVICES/EQUIPMENT:: [employer]. Disability through [place] PRIMARY CARE PHYSICIAN:: Mela Pascal listed but Gildardo says he does not know who she is. POTENTIAL DISCHARGE NEEDS:: Establish with new PCP (Nadeen Hylton T-doc) and follow up with discharge plan. Possible acquisition of new CGM PATIENT/FAMILY EDUCATION NEEDS:: Discharge plan, limitations, follow up plan, Ask Me Three TRANSPORTATION:: via private vehicle with family PLAN:: Gildardo will likely be discharged home with no new services. He will follow up with an initial visit to a new PCP and his discharge plan of care. He will transport via private vehicle with family. CM will continue to support patient and family and assess for discharge planning needs..
[2020-06-27] MEDS: POTASSIUM CHLORIDE/0.45% NACL 1,000 ML 100 MEQ IV ×2 (12:47→21:53)
[2020-06-27] MEDS: Insulin Aspart 300 UNITS/3 ML PEN 10 UNITS SC (13:33)
[2020-06-27] MEDS: Insulin Aspart 300 UNITS/3 ML PEN SC (13:33)
--- NOTE | 2020-06-27 13:36 | PGE_ITS ---
Date of Service Date of service: 06/27/20 Time of Service: 13:37 Assessment and Plan Assessment and plan (1) DKA (diabetic ketoacidoses): Status: Acute Assessment and plan: Admitted in DKA but has resolved on fluids and insulin drip. Feels better and AG closed and stable. Eating. VS stable. Drip discontinued after initial dose of bolus insulin per protocol. Qualifiers: Diabetes mellitus complication detail: without coma Diabetes mellitus type: type 2 Qualified Code(s): E11.10 - Type 2 diabetes mellitus with ketoacidosis without coma (2) Diabetes mellitus type 2, uncontrolled, without complications: Status: Chronic Assessment and plan: I agree that he is functionally a Type 1 DM, though most accurately a likely mixed as his basal insulin dose reflects some insensitivity. I would recommend anti-JANNA Ab as an outpatient. DM education referral placed. I added schduled insulin with each meal plus correction. (3) Chronic back pain: Status: Chronic Assessment and plan: Patient is disabled by his low back pain for 20 years, with apparent spondylolysis. This is an exacerbation of a chronic issue. I will continue short-term oxycodone as needed for severe pain and lidocaine patch. If renal function stable off drip, can use NSAIDs. Long-term he may benefit from alternative therapy such as SNRI. He should also follow up with pain clinic/spine center for more definitive treatment. Qualifiers: Back pain laterality: right Back pain location: low back pain Sciatica presence: without sciatica Qualified Code(s): M54.5 - Low back pain; G89.29 - Other chronic pain (4) Acute hyponatremia: Status: Acute Assessment and plan: Hypovolemic. Improving with hydration. (5) Essential hypertension: Status: Chronic Assessment and plan: Should be treated for long-term cardiac and renal protection. consider starting CODY inhibitor tomorrow if fluid status stable. (6) DVT prophylaxis: Status: Acute Assessment and plan: Lovenox (7) Discharge planning issues: Status: Acute Assessment and plan: Patient needs diabetic education as above, and also needs more regular outpatient follow-up. If stable off drip, will downgrade to MedSurg status later this evening or tomorrow morning. Subjective Subjective Patient reports: tolerating a regular diet and voiding w/o difficulty; denies diarrhea, shortness of breath and fever Interval history since last seen: 24 hr: On insulin ggt per [place] protocol overnight, one episode of hypoglycemia to 65 treated with D50 Feels better this morning. At breakfast with no N/V or abdominal pain. He admits he was missing his insulin doses, more frequently in the past 2 days. Exam Narrative Exam Narrative: GEN: Alert and oriented, pleasent and cooperative, gives linear history. No acute distress at rest. HEENT: conj clear, no icterus. MMM. Lungs: CTAB with normal effort CV: RRR with no murmurs, gallops, or rubs. ABD: +BS, soft, NT/ND EXT: no cyanosis, clubbing, or edema PSYCH: normal mood and affect Objective Last Vital Signs Temp 36.7 C 06/27/20 04:42 Pulse 103 H 06/27/20 12:01 Resp 16 06/27/20 12:01 BP 159/101 H 06/27/20 12:01 Pulse Ox 98 06/27/20 12:01 Laboratory Results - last 24 hr 06/26/20 06/26/20 06/26/20 20:45 20:45 20:45 WBC 6.84 RBC 5.49 Hgb 16.7 Hct 48.8 MCV 88.9 MCH 30.4 MCHC 34.2 RDW 11.6 L Plt Count 273 MPV 9.2 Immature Gran % 0.1 Neutrophils % 58.5 Lymphocytes % 31.6 Monocytes % 7.5 Eosinophils % 0.3 Basophils % 2.0 Nucleated RBC % 0 Absolute Neutrophils 4.00 Absolute Lymphocytes 2.16 Absolute Monocytes 0.51 Absolute Eosinophils 0.02 Absolute Basophils 0.14 VBG pH 7.14 L* VBG pCO2 36 L VBG pO2 35 VBG HCO3 12 L VBG Total CO2 11 L VBG O2 Saturation 63 VBG Base Excess < -15 L Sodium 123 L* Potassium 4.6 Chloride 88 L Carbon Dioxide 12.5 L Anion Gap 22.5 H BUN 8 Creatinine 1.3 Estimated GFR/1.73 m2 58.92 Glucose 382 H Calcium 9.1 Phosphorus Magnesium Total Bilirubin 1.0 AST 49 H ALT 91 H Alkaline Phosphatase 121 H Troponin I < 0.05 Total Protein 9.4 H Albumin 4.6 Lipase 186 Urine Color Urine Clarity Urine pH Ur Specific Andrews Urine Protein Urine Ketones Urine Blood Urine Nitrite Urine Bilirubin Urine Urobilinogen Ur Leukocyte Esterase Urine RBC Urine WBC Ur Epithelial Cells Urine Crystals Urine Bacteria Urine Casts Urine Mucus Ur Culture Indicated? Urine Glucose 06/26/20 06/26/20 06/26/20 20:45 22:20 22:20 WBC RBC Hgb Hct MCV MCH MCHC RDW Plt Count MPV Immature Gran % Neutrophils % Lymphocytes % Monocytes % Eosinophils % Basophils % Nucleated RBC % Absolute Neutrophils Absolute Lymphocytes Absolute Monocytes Absolute Eosinophils Absolute Basophils VBG pH 7.19 L* VBG pCO2 30 L VBG pO2 45 VBG HCO3 11 L VBG Total CO2 10 L VBG O2 Saturation 80 VBG Base Excess < -15 L Sodium 129 L Potassium 3.7 Chloride 96 L Carbon Dioxide 12.3 L Anion Gap 20.7 H BUN 7 Creatinine 1.0 Estimated GFR/1.73 m2 >= 60.00 Glucose 185 H D Calcium 8.5 Phosphorus Magnesium 1.6 L Total Bilirubin AST ALT Alkaline Phosphatase Troponin I Total Protein Albumin Lipase Urine Color Urine Clarity Urine pH Ur Specific Andrews Urine Protein Urine Ketones Urine Blood Urine Nitrite Urine Bilirubin Urine Urobilinogen Ur Leukocyte Esterase Urine RBC Urine WBC Ur Epithelial Cells Urine Crystals Urine Bacteria Urine Casts Urine Mucus Ur Culture Indicated? Urine Glucose 06/26/20 06/27/20 06/27/20 22:45 00:20 00:20 WBC RBC Hgb Hct MCV MCH MCHC RDW Plt Count MPV Immature Gran % Neutrophils % Lymphocytes % Monocytes % Eosinophils % Basophils % Nucleated RBC % Absolute Neutrophils Absolute Lymphocytes Absolute Monocytes Absolute Eosinophils Absolute Basophils VBG pH 7.25 L VBG pCO2 34 L VBG pO2 41 VBG HCO3 15 L VBG Total CO2 14 L VBG O2 Saturation 78 VBG Base Excess -12 L Sodium 131 L Potassium 3.8 Chloride 100 Carbon Dioxide 15.7 L Anion Gap 15.3 H BUN 7 Creatinine 1.0 Estimated GFR/1.73 m2 >= 60.00 Glucose 140 H Calcium 8.1 L Phosphorus Magnesium Total Bilirubin AST ALT Alkaline Phosphatase Troponin I Total Protein Albumin Lipase Urine Color Yellow Urine Clarity Clear Urine pH 6.0 Ur Specific Andrews >= 1.030 H Urine Protein 100 H Urine Ketones >=160 H Urine Blood Small H Urine Nitrite Negative Urine Bilirubin Small H Urine Urobilinogen 0.2 Ur Leukocyte Esterase Negative Urine RBC 0-2 Urine WBC Negative Ur Epithelial Cells Rare Urine Crystals Negative Urine Bacteria Negative Urine Casts Negative Urine Mucus Negative Ur Culture Indicated? No Urine Glucose 500 H 06/27/20 06/27/20 06/27/20 02:00 02:00 03:30 WBC RBC Hgb Hct MCV MCH MCHC RDW Plt Count MPV Immature Gran % Neutrophils % Lymphocytes % Monocytes % Eosinophils % Basophils % Nucleated RBC % Absolute Neutrophils Absolute Lymphocytes Absolute Monocytes Absolute Eosinophils Absolute Basophils VBG pH 7.28 L VBG pCO2 35 L VBG pO2 85 VBG HCO3 17 L VBG Total CO2 15 L VBG O2 Saturation 97 VBG Base Excess -10 L Sodium 133 L Cancelled Potassium 3.9 Cancelled Chloride 103 Cancelled Carbon Dioxide 17.8 L Cancelled Anion Gap 12.2 H Cancelled BUN 7 Cancelled Creatinine 1.0 Cancelled Estimated GFR/1.73 m2 >= 60.00 Cancelled Glucose 156 H Cancelled Calcium 7.8 L Cancelled Phosphorus Magnesium Total Bilirubin AST ALT Alkaline Phosphatase Troponin I Total Protein Albumin Lipase Urine Color Urine Clarity Urine pH Ur Specific Andrews Urine Protein Urine Ketones Urine Blood Urine Nitrite Urine Bilirubin Urine Urobilinogen Ur Leukocyte Esterase Urine RBC Urine WBC Ur Epithelial Cells Urine Crystals Urine Bacteria Urine Casts Urine Mucus Ur Culture Indicated? Urine Glucose 06/27/20 06/27/20 06/27/20 04:10 06:25 06:25 WBC 5.50 RBC 4.34 L Hgb 13.2 L D Hct 37.1 L D MCV 85.5 D MCH 30.4 MCHC 35.6 RDW 11.5 L Plt Count 205 MPV 9.0 Immature Gran % 0.2 Neutrophils % 44.3 Lymphocytes % 39.3 Monocytes % 13.5 Eosinophils % 0.9 Basophils % 1.8 Nucleated RBC % 0 Absolute Neutrophils 2.44 Absolute Lymphocytes 2.16 Absolute Monocytes 0.74 Absolute Eosinophils 0.05 Absolute Basophils 0.10 VBG pH VBG pCO2 VBG pO2 VBG HCO3 VBG Total CO2 VBG O2 Saturation VBG Base Excess Sodium 135 L 137 Potassium 3.9 4.0 Chloride 104 106 Carbon Dioxide 18.8 L 20.1 L Anion Gap 12.2 H 10.9 BUN 5 L 5 L Creatinine 1.1 0.9 Estimated GFR/1.73 m2 >= 60.00 >= 60.00 Glucose 130 H 109 H Calcium 8.1 L 8.3 L Phosphorus Magnesium Total Bilirubin 0.8 AST 36 ALT 62 Alkaline Phosphatase 87 Troponin I Total Protein 6.8 Albumin 3.4 Lipase Urine Color Urine Clarity Urine pH Ur Specific Andrews Urine Protein Urine Ketones Urine Blood Urine Nitrite Urine Bilirubin Urine Urobilinogen Ur Leukocyte Esterase Urine RBC Urine WBC Ur Epithelial Cells Urine Crystals Urine Bacteria Urine Casts Urine Mucus Ur Culture Indicated? Urine Glucose 06/27/20 06/27/20 06/27/20 06:25 06:25 07:30 WBC RBC Hgb Hct MCV MCH MCHC RDW Plt Count MPV Immature Gran % Neutrophils % Lymphocytes % Monocytes % Eosinophils % Basophils % Nucleated RBC % Absolute Neutrophils Absolute Lymphocytes Absolute Monocytes Absolute Eosinophils Absolute Basophils VBG pH VBG pCO2 VBG pO2 VBG HCO3 VBG Total CO2 VBG O2 Saturation VBG Base Excess Sodium Cancelled Potassium Cancelled Chloride Cancelled Carbon Dioxide Cancelled Anion Gap Cancelled BUN Cancelled Creatinine Cancelled Estimated GFR/1.73 m2 Cancelled Glucose Cancelled Calcium Cancelled Phosphorus < 2.0 L Magnesium 1.8 Total Bilirubin AST ALT Alkaline Phosphatase Troponin I Total Protein Albumin Lipase Urine Color Urine Clarity Urine pH Ur Specific Andrews Urine Protein Urine Ketones Urine Blood Urine Nitrite Urine Bilirubin Urine Urobilinogen Ur Leukocyte Esterase Urine RBC Urine WBC Ur Epithelial Cells Urine Crystals Urine Bacteria Urine Casts Urine Mucus Ur Culture Indicated? Urine Glucose 06/27/20 06/27/20 06/27/20 08:00 09:30 11:30 WBC RBC Hgb Hct MCV MCH MCHC RDW Plt Count MPV Immature Gran % Neutrophils % Lymphocytes % Monocytes % Eosinophils % Basophils % Nucleated RBC % Absolute Neutrophils Absolute Lymphocytes Absolute Monocytes Absolute Eosinophils Absolute Basophils VBG pH VBG pCO2 VBG pO2 VBG HCO3 VBG Total CO2 VBG O2 Saturation VBG Base Excess Sodium 136 Cancelled Cancelled Potassium 3.9 Cancelled Cancelled Chloride 107 Cancelled Cancelled Carbon Dioxide 19.1 L Cancelled Cancelled Anion Gap 9.9 Cancelled Cancelled BUN 5 L Cancelled Cancelled Creatinine 0.9 Cancelled Cancelled Estimated GFR/1.73 m2 >= 60.00 Cancelled Cancelled Glucose 95 Cancelled Cancelled Calcium 8.0 L Cancelled Cancelled Phosphorus Magnesium Total Bilirubin AST ALT Alkaline Phosphatase Troponin I Total Protein Albumin Lipase Urine Color Urine Clarity Urine pH Ur Specific Andrews Urine Protein Urine Ketones Urine Blood Urine Nitrite Urine Bilirubin Urine Urobilinogen Ur Leukocyte Esterase Urine RBC Urine WBC Ur Epithelial Cells Urine Crystals Urine Bacteria Urine Casts Urine Mucus Ur Culture Indicated? Urine Glucose 06/27/20 06/27/20 06/27/20 13:30 15:30 17:30 WBC RBC Hgb Hct MCV MCH MCHC RDW Plt Count MPV Immature Gran % Neutrophils % Lymphocytes % Monocytes % Eosinophils % Basophils % Nucleated RBC % Absolute Neutrophils Absolute Lymphocytes Absolute Monocytes Absolute Eosinophils Absolute Basophils VBG pH VBG pCO2 VBG pO2 VBG HCO3 VBG Total CO2 VBG O2 Saturation VBG Base Excess Sodium Cancelled Cancelled Cancelled Potassium Cancelled Cancelled Cancelled Chloride Cancelled Cancelled Cancelled Carbon Dioxide Cancelled Cancelled Cancelled Anion Gap Cancelled Cancelled Cancelled BUN Cancelled Cancelled Cancelled Creatinine Cancelled Cancelled Cancelled Estimated GFR/1.73 m2 Cancelled Cancelled Cancelled Glucose Cancelled Cancelled Cancelled Calcium Cancelled Cancelled Cancelled Phosphorus Magnesium Total Bilirubin AST ALT Alkaline Phosphatase Troponin I Total Protein Albumin Lipase Urine Color Urine Clarity Urine pH Ur Specific Andrews Urine Protein Urine Ketones Urine Blood Urine Nitrite Urine Bilirubin Urine Urobilinogen Ur Leukocyte Esterase Urine RBC Urine WBC Ur Epithelial Cells Urine Crystals Urine Bacteria Urine Casts Urine Mucus Ur Culture Indicated? Urine Glucose 06/27/20 06/27/20 06/27/20 19:30 21:30 23:30 WBC RBC Hgb Hct MCV MCH MCHC RDW Plt Count MPV Immature Gran % Neutrophils % Lymphocytes % Monocytes % Eosinophils % Basophils % Nucleated RBC % Absolute Neutrophils Absolute Lymphocytes Absolute Monocytes Absolute Eosinophils Absolute Basophils VBG pH VBG pCO2 VBG pO2 VBG HCO3 VBG Total CO2 VBG O2 Saturation VBG Base Excess Sodium Cancelled Cancelled Cancelled Potassium Cancelled Cancelled Cancelled Chloride Cancelled Cancelled Cancelled Carbon Dioxide Cancelled Cancelled Cancelled Anion Gap Cancelled Cancelled Cancelled BUN Cancelled Cancelled Cancelled Creatinine Cancelled Cancelled Cancelled Estimated GFR/1.73 m2 Cancelled Cancelled Cancelled Glucose Cancelled Cancelled Cancelled Calcium Cancelled Cancelled Cancelled Phosphorus Magnesium Total Bilirubin AST ALT Alkaline Phosphatase Troponin I Total Protein Albumin Lipase Urine Color Urine Clarity Urine pH Ur Specific Andrews Urine Protein Urine Ketones Urine Blood Urine Nitrite Urine Bilirubin Urine Urobilinogen Ur Leukocyte Esterase Urine RBC Urine WBC Ur Epithelial Cells Urine Crystals Urine Bacteria Urine Casts Urine Mucus Ur Culture Indicated? Urine Glucose
[2020-06-27] MEDS: Lidocaine Patch Removal 1 EACH TD (13:45)
[2020-06-27 14:43] LABS: Anion Gap 10.1 mmol/L (3-11); BUN 4 mg/dL (7-18); CO2 21.9 mmol/L (21.0-32.0); CREATININE 1.1 mg/dL (0.70-1.30); Calcium 8.3 mg/dL (8.5-10.1); Chloride 101 mmol/L (98-107); Potassium 3.7 mmol/L (3.5-5.1); Sodium 133 mmol/L (136-145)
[2020-06-27 14:50] LABS: Glucose 179 mg/dL (74-106)
--- NOTE | 2020-06-27 15:22 | PHA.REVIEW ---
Pharmacy Admission Review - Admission Clinical Review (Last Updated 06/27/20 @ 01:22 by Jose Olivier) Discharge planning issues (Acute) DVT prophylaxis (Acute) DKA (diabetic ketoacidoses) (Acute) Acute hyponatremia (Acute) Dehydration (Acute) Acidosis (Acute) Nausea (Acute) No Known Allergies Allergy (Unverified 05/04/20 17:05) Height 5 ft 8 in Weight 72.6 kg - Renal Dosing Renal Dosing: BUN Cancelled 06/27/20 23:30 Creatinine Cancelled 06/27/20 23:30 Medications needing adjustments: Reviewed (Crcl ~79 mL/min, current meds okay) - Anticoagulation Anticoagulation: Hgb 13.2 g/dL (13.5-17.5) L D 06/27/20 06:25 Hct 37.1 % (40.0-50.0) L D 06/27/20 06:25 Plt Count 205 10^3/uL (130-400) 06/27/20 06:25 Creatinine Cancelled 06/27/20 23:30 DVT Prohphylaxis: Reviewed Medications: Enoxaparin Therapeutic Anticoagulation: N/A - Opiate Usage Evaluate Pain Scale/Pains Meds: Reviewed Scheduled Bowel Reg ordered if on Opiates?: No (has prn meds ordered) - Relevant Labs Sodium Cancelled 06/27/20 23:30 Potassium Cancelled 06/27/20 23:30 Chloride Cancelled 06/27/20 23:30 Phosphorus < 2.0 mg/dL (2.6-4.7) L 06/27/20 06:25 Magnesium 1.8 mg/dL (1.8-2.4) 06/27/20 06:25 Electrolytes, C-Reactive P, ESR: Intervened (Sodium back down a little bit, mag improved, phos is low. Asked provider about phos replacement.) - DM Control DM Control: Glucose Cancelled 06/27/20 23:30 Finger Stick Blood Glucose 200 Finger Stick Blood Glucose 200 Finger Stick Blood Glucose 200 Finger Stick Blood Glucose 172 Finger Stick Blood Glucose 142 Finger Stick Blood Glucose 79 Finger Stick Blood Glucose 79 Finger Stick Blood Glucose 112 Finger Stick Blood Glucose 112 Finger Stick Blood Glucose 99 Insulin Dosing: Reviewed (Insulin drip discontinued, scheduled glargine and aspart as well as sliding scale aspart ordered.) - Heart Failure/AZ Heart Failure/AZ: Troponin I < 0.05 ng/mL (<0.06) 06/26/20 20:45 EF%, CODY's, B-Blockers, Diuretics: Reviewed - BP Control BP Control: Blood Pressure 159/101 Blood Pressure 155/104 Blood Pressure 171/103 Blood Pressure 145/100 Blood Pressure 128/75 Blood Pressure 134/75 Blood Pressure 110/65 Blood Pressure 146/98 Blood Pressure 127/72 Blood Pressure 145/92 Blood Pressure 148/90 Blood Pressure 146/96 Blood Pressure 145/100 Blood Pressure 150/101 If elevated: Intervened (HR-103. HR and BP has been elevated most of admission, pt is not on any meds for this at home. Will mention to provider.) - Qtc Review If Elevated: Reviewed (QTc 480 on admission) - IV to PO Switch IV Medications: Reviewed - Home Meds Home Med List reviewed: Reviewed - Current meds Current Medication Order Review: Reviewed - Comments Comments/Follow Ups: Watch BP, HR, Phos, other electrolytes, BG, and for med changes (avoid QT prolonging meds).
[2020-06-27] MEDS: Lidocaine 5% Patch 1 PATCH TP (21:52)
[2020-06-27 21:57] LABS: COVID-19 RT-PCR UVMMC Result Negative (Negative)
[2020-06-28] VITALS (17 sets, daily range): BP systolic 134–165; BP diastolic 80–111; PULSE 89–122; RESP 14–32; TEMP 36.1–37.2; O2SAT 96–98
[2020-06-28] MEDS: oxyCODONE 5 MG TAB PO ×6 (02:49→23:46)
[2020-06-28] MEDS: Acetaminophen 325 MG TAB 650 MG PO ×6 (02:50→23:46)
[2020-06-28 07:10] LABS: Anion Gap 6.2 mmol/L (3-11); BUN 3 mg/dL (7-18); CO2 26.8 mmol/L (21.0-32.0); CREATININE 0.7 mg/dL (0.70-1.30); Calcium 8.7 mg/dL (8.5-10.1); Calculated LDL 179 mg/dL (<100); Chloride 101 mmol/L (98-107); Cholesterol 256 mg/dL (<200); Glucose 112 mg/dL (74-106); HDL Cholesterol 38 mg/dL (40-60); Potassium 3.1 mmol/L (3.5-5.1); Sodium 134 mmol/L (136-145); Triglyceride 199 mg/dL (<150)
[2020-06-28] MEDS: Potassium Chloride 20 MEQ TABCR 40 MEQ PO (09:43)
[2020-06-28] MEDS: Mylanta Suspension 30 ML CUP PO (09:44)
[2020-06-28] MEDS: Insulin Glargine 300 UNITS/3 ML PEN 50 UNITS SC (09:46)
[2020-06-28] MEDS: Insulin Aspart 300 UNITS/3 ML PEN 10 UNITS SC (09:52)
[2020-06-28] MEDS: Lidocaine Patch Removal 1 EACH TD (10:03)
--- NOTE | 2020-06-28 10:14 | PDOC.CMPRO ---
- If Service Date Differs Date of service: 06/28/20 Time of Service: 10:14 Care Management Progress Note S/O: Gildardo was sitting up in bed when CM met with him. He stated that he was tired and had not had much sleep. CM discussed advanced directives with Gildardo as none were found in his record . Gildardo stated he was superstitious and did not want to do advanced directives. He did state that he is feeling a bit better today. A: Gildardo is a 49 year old man admitted on 06/27/20 with DKA P: Gildardo will likely be discharged home with no new services. He will follow up with an initial visit to a new PCP and his discharge plan of care. he will transport via private vehicle with family. CM will continue to support patient and family and assess for discharge planning needs..
[2020-06-28] MEDS: Famotidine 20 MG TAB PO ×2 (11:10→21:05)
[2020-06-28] MEDS: amLODIPine 5 MG TAB PO (11:11)
[2020-06-28] MEDS: Insulin Aspart 300 UNITS/3 ML PEN SC ×2 (12:23→17:36)
--- NOTE | 2020-06-28 13:14 | PGE_ITS ---
Date of Service Date of service: 06/28/20 Time of Service: 09:44 Assessment and Plan Assessment and plan (1) DKA (diabetic ketoacidoses): Status: Acute Assessment and plan: Anion gap now normal. Insulin drip discontinued. Lantus 50 units SQ daily Insulin Aspart QAC per his routine carb counting dosing. Diabetic diet. Consult critical care educator; discuss continuous glucose monitoring. Qualifiers: Diabetes mellitus type: type 2 Diabetes mellitus complication detail: without coma Qualified Code(s): E11.10 - Type 2 diabetes mellitus with ketoacidosis without coma (2) Essential hypertension: Status: Chronic Assessment and plan: SBP in the 130's to 160's. He is on no antihypertensives routinely. Amlodipine 5mg daily initiated but, given dx of DM, will change to lisinopril 20 mg daily starting in the AM (3) Chronic back pain: Status: Chronic Assessment and plan: Cont lidoderm patch and prn oxycodone and acetaminophen. Add prn flexeril. Qualifiers: Back pain location: low back pain Back pain laterality: right Sciatica presence: without sciatica Qualified Code(s): M54.5 - Low back pain; G89.29 - Other chronic pain Subjective Subjective Patient reports: no new complaints and afebrile; denies nausea, vomiting and shortness of breath Exam Narrative Exam Narrative: Patient is lying in bed. Const General: cooperative, comfortable and no acute distress Nutritional Appearance: average body habitus Orientation: alert and oriented x3 Resp Effort & Inspection: normal respiratory effort Auscultation: clear to auscultation bilaterally Cardio Rate: regular rate Rhythm: regular rhythm Heart Sounds: S1 normal and S2 normal GI Palpation: soft and nontender Auscultation: normal bowel sounds Extrem General: no pedal edema and no calf tenderness Objective Last Vital Signs Temp 36.1 C L 06/28/20 08:00 Pulse 101 H 06/28/20 10:01 Resp 19 06/28/20 10:01 BP 151/103 H 06/28/20 10:01 Pulse Ox 98 06/28/20 07:59 Laboratory Results - last 24 hr 06/27/20 06/27/20 06/28/20 02:00 14:10 06:30 Sodium 133 L 134 L Potassium 3.7 3.1 L Chloride 101 101 Carbon Dioxide 21.9 26.8 Anion Gap 10.1 6.2 BUN 4 L 3 L Creatinine 1.1 0.7 Estimated GFR/1.73 m2 >= 60.00 >= 60.00 Glucose 179 H D 112 H Calcium 8.3 L 8.7 Triglycerides 199 H Total Cholesterol 256 H LDL Cholesterol, Calc 179 H HDL Cholesterol 38 L SARS-CoV-2 (PCR) Negative Nasopharyn COVID-19 PCR Not Applicable Ref Test Perform Site [facility] lab
[2020-06-28] MEDS: Cyclobenzaprine 10 MG TAB PO ×2 (17:37→23:47)
[2020-06-28] MEDS: Potassium Chloride 20 MEQ TABCR PO (19:46)
[2020-06-28] MEDS: Lidocaine 5% Patch 1 PATCH TP (21:06)
[2020-06-29 01:49] VITALS: O2SAT 97
[2020-06-29 03:07] VITALS: BP 160/110; PULSE 100; RESP 18; TEMP 36.3; O2SAT 99
[2020-06-29] MEDS: oxyCODONE 5 MG TAB PO ×3 (04:00→12:28)
[2020-06-29 06:57] LABS: Platelet Count 206 10^3/uL (130-400)
[2020-06-29 07:11] LABS: Anion Gap 8.5 mmol/L (3-11); BUN 7 mg/dL (7-18); CO2 26.5 mmol/L (21.0-32.0); CREATININE 0.7 mg/dL (0.70-1.30); Calcium 9.1 mg/dL (8.5-10.1); Chloride 99 mmol/L (98-107); Glucose 254 mg/dL (74-106); Potassium 3.9 mmol/L (3.5-5.1); Sodium 134 mmol/L (136-145)
[2020-06-29 07:25] VITALS: BP 140/80; PULSE 102; RESP 18; TEMP 36.5; O2SAT 95
[2020-06-29 08:30] VITALS: O2SAT 95
[2020-06-29] MEDS: Potassium Chloride 20 MEQ TABCR PO (08:33)
[2020-06-29] MEDS: Lisinopril 20 MG TAB PO (08:33)
[2020-06-29] MEDS: Acetaminophen 325 MG TAB 650 MG PO ×2 (08:33→12:27)
[2020-06-29] MEDS: Insulin Aspart 300 UNITS/3 ML PEN SC ×2 (08:34→12:33)
[2020-06-29] MEDS: Cyclobenzaprine 10 MG TAB PO (09:44)
[2020-06-29] MEDS: Insulin Glargine 300 UNITS/3 ML PEN 50 UNITS SC (10:42)
[2020-06-29] MEDS: Lidocaine Patch Removal 1 EACH TD (10:43)
--- NOTE | 2020-06-29 12:15 | DSE_ITS ---
Date of service: 06/29/20 Time of Service: 12:16 DS: Diagnosis Discharge Diagnosis (1) DKA (diabetic ketoacidoses): Start date: 06/29/20 Start time: 12:16 Status: Acute Asessment and Plan: Non compliant diabetic admitted with DKA, initiated on insulin infusion and IVF. He was educated by nursing educator on Diabetes and CGM he will meet with them on regular basis and monitor glucose levels better. He will follow up with PCP in 1-2 weeks. (2) Essential hypertension: Start date: 06/29/20 Start time: 12:23 Status: Chronic Asessment and Plan: lisionpril 20 mg dailiy will defer to pcp for outpateint follow up (3) Chronic back pain: Start date: 06/29/20 Start time: 12:23 Status: Chronic Asessment and Plan: flexeril will also give a couple oxycodone for pain will need follow up with PCP for further management should follow up in 1-2 weeks (4) Hyperlipidemia: Start date: 06/29/20 Start time: 12:27 Status: Acute Asessment and Plan: elevated with total cholesterol 256 ldl 179, HDL 38 triglycerides 199 will start atorvastatin 40 mg daily above case discussed with Dr. Pena Discharge Plan Disposition Patient Disposition: HOME Condition: Good Discharge Details Reason For Visit: DKA, INSULIN-DEPENDENT DIABETES MELLITUS, DEHYDRAT Admit Date/Time: 06/27/20 01:02 Admit Provider: Jose Olivier Attending Provider: Jose Olivier Primary Care Provider: Unknown,Unknown Hospital Course Hospital Course: This is a 49-year-old gentleman who recently has been noncompliant with insulin treatment which appears to show poor insight. He does have the ability to test for ketones in his urine and had positive ketones prompting him to come to the ED for evaluation. He also had a sour stomach and did not feel well. He was in DKA and was started on an insulin infusion with IV fluid resuscitation. He is slowly responding and has had no evidence of change in mentation. Therefore he was admitted to ICU for further management. Over course of treatment AG closed and he was transferred out of the ICU. Fingersticks leveled out. He was given diabetic education. He will be placed on CGM and followed by our dieticians in addition with his PCP to closely monitor his glucose levels. Lipid levels were elevated while in the hospital see diagnosis and he is being discharged home on a statin, he was also started on lisinopril for HTN. He will need follow up with his PCP in 1-2 weeks. He denies CP, SOB, N/V/D. Home Meds and New Rx's Prescriptions: New cyclobenzaprine 10 mg Tablet 10 mg PO TID PRN PRNQty: 30 RF: 0 lisinopril 20 mg Tablet 20 mg PO DAILY Qty: 30 RF: 0 oxycodone 5 mg Tablet 5 mg PO Q4H PRN PRNQty: 20 RF: 0 atorvastatin 20 mg tablet 20 mg PO QHS Qty: 30 RF: 0 Continued insulin aspart U-100 [Novolog PenFill U-100 Insulin] 100 UNIT/ML cartridge 1 - 10 unit SQ DIRECTED RF: 0 Lantus U-100 Insulin 100 UNITS/ML solution 50 unit SQ HS Qty: 0 RF: 0 No Action (DME) Ketone Urine Test Strip See Rx Instructions .ROUTE .MEDSUPPLY Qty: 25 RF: 0 Discharge Instructions Instructions: Lisinopril (By mouth), Cyclobenzaprine (By mouth), Atorvastatin (By mouth), Insulin Glargine (By injection), Diabetic Ketoacidosis (DC), Chronic Hypertension (DC), DASH Eating Plan (DC), Chronic Back Pain (DC), Hyperlipidemia (DC), Diabetes and Exercise (DC), Diabetes Type 1: Management (DC) Additional Instructions: Take lisinopril daily every day for your blood pressure not doing so can result in a stroke Take your diabetic medication every day and check your blood sugar regularly not doing so can result in adverse effects including Take atorvastatin daily, if you have cramping of your muscles, your primary provider right away, they may want to stop the medication and start you on something different. Follow up with your PCP in 1-2 weeks Stick to a heart healthy low carb diet Activity:: Activity as Tolerated Equipment/Supplies:: No Equipment Needed Diet:: HH/Carb counting Discharge Orders Discharge Orders: Discharge Order (Routine); Ordered 06/29/20 Ordered By: Norma Pelletier DS: Summary Time Spent with Patient providing and/or coordinating discharge services: Greater than 30 minutes (approx 45 mins) Status at Discharge Functional status at discharge: independent ambulation Overall status at discharge: patient is back to baseline Mental Status: mental status grossly normal Speech and Movement: speech and movement normal Mood: congruent mood Affect: normal affect Exam Narrative Exam Narrative: Patient is lying in bed. Const General: cooperative, comfortable and no acute distress Nutritional Appearance: average body habitus Orientation: alert and oriented x3 Resp Effort & Inspection: normal respiratory effort Auscultation: clear to auscultation bilaterally Cardio Rate: regular rate Rhythm: regular rhythm Heart Sounds: S1 normal and S2 normal GI Palpation: soft and nontender Auscultation: normal bowel sounds Extrem General: no pedal edema and no calf tenderness Psych Mental Status: mental status grossly normal Speech and Movement: speech and movement normal Mood: congruent mood Affect: normal affect DS: Data Vitals/I&O Vitals and I&O: Vital Signs Temperature 36.5 C 06/29/20 07:25 Temperature Source Tympanic 06/29/20 07:25 Pulse 102 H 06/29/20 07:25 Pulse Rhythm Regular 06/29/20 01:49 Pulse 103 H 06/28/20 10:01 Respiratory Rate 18 06/29/20 07:25 Respiratory Effort Non-Labored 06/29/20 01:49 Respiratory Depth Normal 06/29/20 01:49 Respiratory Pattern Normal 06/29/20 01:49 Blood Pressure 140/80 06/29/20 07:25 Blood Pressure Mean 115 06/28/20 10:01 Blood Pressure Position Sitting 06/28/20 08:00 Pulse Oximetry 95 06/29/20 07:25 Oxygen Delivery Method Room Air 06/29/20 07:25 Oxygen Flow Rate 0 06/29/20 07:25 Pain Level 8 06/29/20 08:33 Intake & Output 06/28/20 06/29/20 06/29/20 23:59 11:59 23:59 Intake Total 480 / 1330 237 / 237 Balance 480 / -600 237 / 237 Intake: Oral 480 / 1330 237 / 237 Other: Urine Color Pale Urine Appearance Clear Clear Urine Odor Normal Comment void x1 toilet per pt Stool Size Small Stool Characteristics Hard Voiding Methods Toilet Data Completed and Pending Labs on day of discharge: Labs from last 24 hours 06/29/20 06/29/20 06:20 06:20 Plt Count 206 Sodium 134 L Potassium 3.9 D Chloride 99 Carbon Dioxide 26.5 Anion Gap 8.5 BUN 7 Creatinine 0.7 Estimated GFR/1.73 m2 >= 60.00 Glucose 254 H D Calcium 9.1 PFSH Medical History (Updated 06/29/20 @ 12:22 by Norma Pelletier NP) Chronic back pain Diabetes mellitus type 2, uncontrolled, without complications Social History Smoking/Tobacco Use Status: Current every day Tobacco Type: cigarettes Smoking risk assessment performed?: Yes Alcohol Intake: current Alcohol Intake frequency: holidays/special occasions only Drug use: Never Substance use type: does not use Current gender identity: male Do you feel safe at home: Yes Do you feel safe in your relationship?: Yes
--- NOTE | 2020-06-29 12:34 | W.INDIABCONS ---
Date of service: 06/29/20 Time of Service: 10:00 Diabetes Inpatient Consult DESCRIPTION/ASSESSMENT: 49 y/o male admitted for DKA. He stated he has been missing insulin doses and not eating regular meals prior to admission. Has rx and regimen of 50 u Lantus HS and 3-10 u Novolog with sliding scale. He was able to clearly review his insulin dosage and reports occasional lows. He needed re-education to help self manage his DM. Stated that he and his fiance cook at home and eat pretty well. documentation reveals A1c 105% on 05/05/19 indicating high 250's mg/dl over 3 months. [employer] used finger stick during this encounter and reading was 126mg/dl (WNL). Patient understands that he has been receiving<60g/ CHO per meal period as an inpatient and taking insulin regularly. He is aware that his BG numbers reflect this intervention. He would be a good candidate for CGM and possibly insulin pump. INTERVENTION: Educated patient on CHO counting, Pro/CHO pairing and long-term complications of elevated BG. Demonstrated [employer] phone rosa patient downloaded it and used it immediatley to help w/ CHO counting skills. Patient food and nutrition professor arrived with meal during this encounter and explained the amount of CHO in each food item and that it totaled 47g. Recommended that Ray use BG record to track FBG and postprandials to see patterns to create action plans for self management. Reviewed desired BG levels. Provided literature on all aforementioned. Explained benefits of CGM for pre-emptive action plans for highs and lows. Provided literature on Free [employer] Yanique 2. PLAN: Ray agreed he will contact PCP to arrange for referral to hematology nurse educator for further DM education, meal planning, support and CGM placement. Time Spent in Nutritional Counseling and Treatment: 20 minutes
--- NOTE | 2020-06-29 15:02 | NUR.NOTE ---
patient had a hard bm yesterday, this RN offered bowel meds, pt refused despite education given
--- NOTE | 2020-06-29 16:35 | PDOC.CMDIS ---
- If Service Date Differs Date of service: 06/29/20 Time of Service: 16:36 LACE Index Scoring Tool - Questions: Length of Stay (in days): 2 Acuity (Admit via E.D.?): Yes Comorbidities: Diabetes w/o Complication E.D. Visits: 2 - Answers: Total Score: 8 Risk of Readmission: Low Risk Care Management Discharge Reason for Hospitalization: DKA Discharge Plan: Ray will be discharged home with no new services. He will follow up with an initial visit to a new PCP and his discharge plan of care. He stated that Dr. Crowell told him he would accept him as a new patient and plans on stopping by the office upon discharge.He will transport via private vehicle with family. Patient/Family Education Needs: Discharge plan, limitations, follow up plan, Ask Me Usha
== END 2020-06-29 16:36 | disposition home or self-care (01) | DRG 638 ==
LOC: ER 06-27 01:30 → ICU 06-27 03:40 → MS 06-28 12:45
PROVIDERS: Family Medicine; Admitting Provider Family Medicine; Emergency Provider Student in an Organized Health Care Education/Training Program; PCP Family Medicine; Visit Provider Family Medicine
DX: E11.10 Type 2 diabetes mellitus with ketoacidosis without coma (principal); E87.1 Hypo-osmolality and hyponatremia; E86.0 Dehydration; G89.29 Other chronic pain; M54.9 Dorsalgia, unspecified; Z79.4 Long term (current) use of insulin; F17.210 Nicotine dependence, cigarettes, uncomplicated; I10 Essential (primary) hypertension; E78.5 Hyperlipidemia, unspecified
CPT/HCPCS: 36415; 36416; 80048; 80053; 80061; 82805; 82962; 83690; 93005; 96361; 96365; 96366; 96367; 96368; 96372; 96375; 99223; 99232; 99233; 99239; 99291; J1650; U0003; 81003; 81015; 83735; 84100; 84484; 85025; 85049; 93010; J1885; J2405; J3360; J3490; J7042

== ENCOUNTER 2020-10-28 01:48 | Inpatient (IN) | payer OTHER, SELFPAY ==
[2020-10-28] VITALS (129 sets, daily range): BP systolic 96–165; BP diastolic 50–106; PULSE 87–144; RESP 9–27; TEMP 36.3–37.3; O2SAT 95–100
--- NOTE | 2020-10-28 02:15 | HPE_ITS ---
Date of service: 10/28/20 Time of Service: 02:15 Assessment and Plan Assessment and plan (1) DKA (diabetic ketoacidoses): Status: Acute Assessment and plan: Triggered by missing insulin, alcohol use. Started on insulin drip, written for Patterson protocol. Titrate fluids and add glucose per protocol. He turned around pretty quickly last time. He denies depression, but clearly lack of engagement in medical care is root of poor DM control and recurrent DKA, will work to engage again. I scheduled him with my own clinic last visit, but he didn't show. Qualifiers: Diabetes mellitus type: type 2 Diabetes mellitus complication detail: without coma Qualified Code(s): E11.10 - Type 2 diabetes mellitus with ketoacidosis without coma (2) Alcohol abuse: Status: Chronic Assessment and plan: He endorses difficulty controlling use. He does have a history of withdrawal, will monitor with CIWA, but not exhibiting withdrawal now. LFTs c/w alcoholic hepatitis, continue to monitor. Not c/w pancreatitis though he does have this history. (3) Sinus pressure: Status: Acute Assessment and plan: he may have some frontal sinusitis. Treat with antibiotics if persists or gets fevers. (4) Smoker: Status: Acute Assessment and plan: encouraged cessation. declines NRT for now (5) Chronic back pain: Status: Chronic Assessment and plan: States he is on gabapentin chronically, though not on record. Will Rx at 300mg TID, this may help with alcohol cravings as well. Qualifiers: Back pain location: low back pain Back pain laterality: right Sciatica presence: without sciatica Qualified Code(s): M54.5 - Low back pain; G89.29 - Other chronic pain (6) DVT prophylaxis: Status: Acute Assessment and plan: LMWH (7) Discharge planning issues: Status: Acute Assessment and plan: Currently serious condition in ICU. Full Code. History of Present Illness History of Present Illness Chief Complaint: vomiting Narrative: 50 yo M with insulin dependant type 2 DM and history of DKA most recently admitted to [facility] June 2020 with diabetic ketoacidosis, presented to [facility] ED today with 1 day of nausea and vomiting after 2-3 days of malaise in setting of increased alcohol use and limited insulin use. He states it started 3 days ago, was celebrating his son's graduation from [employer] and drinking 6-8 beers/day. He wasn't using his insulin regularly during this time, though he did take one dose yesterday. He also c/o feeling generally weak. He recognized the symptoms of DKA and presented to the ED in [place]. They do not have ICU beds, was transferred to [facility] after starting fluids and insulin drip in ED. Review of Systems Constitutional Constitutional: Denies anorexia, Denies chills, Denies fever(s), Reports heada della(s), Reports lethargy, Reports malaise and Denies weight loss Eyes Eyes: Denies change in vision and Denies irritation ENT Ears, Nose, Mouth, and Throat: Denies dental pain, Denies dizziness, Reports headache(s), Reports nasal congestion, Denies nasal discharge, Reports sinus pressure and Reports sore throat Cardiovascular Cardiovascular: Denies chest pain and Denies orthopnea Respiratory Respiratory: Denies cough, Denies excessive phlegm production and Denies wheezing Gastrointestinal Gastrointestinal: Reports abdominal pain, Denies melena, Denies constipation, Denies heartburn, Denies diarrhea and Denies hematemesis Genitourinary Genitourinary: Denies hematuria, Denies dysuria and Denies urinary incontinence Musculoskeletal Musculoskeletal: Reports back pain (chronic) Integumentary/Breasts Skin/Breast: Denies rash and Denies skin ulcer Neurologic Neurologic: Denies dizziness, Reports headache(s) and Denies sensory deficit Psychiatric Psychiatric: Denies depression, Denies mood swings and Denies panic attacks Endocrine Endocrine: Reports polydipsia and Reports polyuria Hematologic/Lymphatic Hematologic/Lymphatic: Denies easy bleeding Allergic/Immunologic Allergic/Immunologic: Denies wheezing PFSH Medical History Acute on chronic pancreatitis Alcohol abuse Chronic back pain Diabetes mellitus type 2, uncontrolled, without complications Essential hypertension Smoker Family History (Updated 10/28/20 @ 02:40 by Graeme Crowell) Other Colon cancer Heart disease Social History (Updated 10/28/20 @ 02:25 by Graeme Crowell) Smoking/Tobacco Use Status: Current every day Tobacco Type: cigarettes Smoking risk assessment performed?: Yes Alcohol Intake: current Alcohol Intake frequency: holidays/special occasions only Drug use: Never Substance use type: does not use Current gender identity: male Do you feel safe at home: Yes Do you feel safe in your relationship?: Yes Additional Social history: lives with fiance, mother, and one daugther in country in [place], [place]. Retired career [employer], was stationed in [place], went through [employer] training. Meds Allergies and Home Medications Allergies Allergy/AdvReac Type Severity Reaction Status Date / Time No Known Allergies Allergy Unverified 05/04/20 17:05 Home Medications Medication Instructions Recorded Confirmed Type insulin aspart U-100 [Novolog 1 - 10 unit SQ DIRECTED 07/08/15 06/26/20 History PenFill U-100 Insulin] Lantus U-100 Insulin 50 unit SQ HS #0 ml 05/06/20 06/26/20 Rx acetone (urine) test [Ketone Urine #25 ea 05/06/20 Rx Test] atorvastatin 20 mg PO QHS #30 tab 06/29/20 Rx cyclobenzaprine 10 mg PO TID PRN PRN #30 tab 06/29/20 Rx lisinopril 20 mg PO DAILY #30 tab 06/29/20 Rx oxycodone 5 mg PO Q4H PRN PRN #20 tab 06/29/20 Rx Exam Narrative Exam Narrative: GEN: Alert and oriented, cooperative, gives linear history. Appears tired and uncomfortable, but no acute distress at rest. HEENT: Head atraumatic. Conjunctiva clear, no icterus. PEERL, EOMI. mild right frontal sinus tenderness, no rhinorrhea notable. MMM, OP benign. Neck is supple with no masses or lymphadenopathy, trachea midline LUNGS: CTAB with normal effort CV: RRR with no murmurs, gallops, or rubs. ABD: +BS, soft, mild epigastric tenderness, not distended. EXT: no cyanosis, clubbing, or edema MSK: No joint redness or swelling NEURO: CN 2-12 grossly intact. Normal movement of 4 extremities. Normal speech and coordination. no tremor SKIN: No rashes or open wounds. PSYCH: normal mood and affect, nl thought process Results Imaging Additional studies: sinus tachycardia, no ischemic changes (done at [facility]) EKG: image reviewed Labs Labs: Labs from [facility] reviewed. Na 128, K 3.5 cr 1.08, cl 76, CO2 11, AG 41, glucose 580 AST 134, ALT 79. lipase 36, bili 1.9 SARS CoV negative COVID-19 Screening Have you, or household traveled for leisure in last 14 days?: No
[2020-10-28 05:17] LABS: Anion Gap 21.4 mmol/L (3-11); BUN 11 mg/dL (7-18); CO2 17.6 mmol/L (21.0-32.0); CREATININE 1.1 mg/dL (0.70-1.30); Calcium 7.7 mg/dL (8.5-10.1); Chloride 94 mmol/L (98-107); Glucose 233 mg/dL (74-106); Potassium 3.4 mmol/L (3.5-5.1); Sodium 133 mmol/L (136-145)
[2020-10-28] MEDS: POTASSIUM CHLORIDE/0.9% NACL 1,000 ML 200 MEQ IV (05:23)
[2020-10-28] MEDS: INSULIN REGULAR IN 0.9 % NACL 100 UNIT/100 ML BAG IV (05:25)
[2020-10-28] MEDS: POTASSIUM CHLORIDE/D5-0.9%NACL 1,000 ML 150 MEQ IV (06:44)
[2020-10-28 07:20] LABS: Hemoglobin A1C 11.8 % (<5.7)
[2020-10-28 07:21] LABS: ALT 73 U/L (16-63); AST 98 U/L (15-37); Albumin 3.3 g/dL (3.4-5.0); Alkaline Phosphatase 175 U/L (46-116); Anion Gap 17.8 mmol/L (3-11); BUN 10 mg/dL (7-18); Bilirubin, Direct 0.4 mg/dL (0.0-0.2); Bilirubin, Total 1.2 mg/dL (0.2-1.0); CO2 20.2 mmol/L (21.0-32.0); Calcium 7.8 mg/dL (8.5-10.1); Chloride 96 mmol/L (98-107); Glucose 176 mg/dL (74-106); PHOSPHORUS < 2.0 mg/dL (2.6-4.7); Potassium 3.7 mmol/L (3.5-5.1); Sodium 134 mmol/L (136-145); Total Protein 7.4 g/dL (6.4-8.2)
[2020-10-28 07:38] LABS: Magnesium 1.6 mg/dL (1.8-2.4)
[2020-10-28] MEDS: Insulin Glargine 300 UNITS/3 ML PEN 20 UNITS SC ×2 (08:14→21:51)
[2020-10-28] MEDS: Multivitamin TAB 1 TAB PO (08:15)
[2020-10-28] MEDS: Gabapentin 300 MG CAP PO ×3 (08:15→21:08)
[2020-10-28] MEDS: Folic Acid 1 MG TAB PO (08:15)
[2020-10-28] MEDS: Lisinopril 20 MG TAB PO (08:15)
[2020-10-28] MEDS: Thiamine 100 MG TAB PO (08:15)
[2020-10-28] MEDS: Acetaminophen 325 MG TAB 650 MG PO ×2 (08:16→22:16)
--- NOTE | 2020-10-28 08:21 | W.PM.PROGNOT ---
Date of Service Date of service: 10/28/20 Time of Service: 13:42 Assessment and Plan Assessment and plan (1) DKA (diabetic ketoacidoses): Status: Acute Assessment and plan: due to noncompliance with insulin which may be due to alcohol use, which in itself could also be contributing to his ketoacidosis. Transitioned to basal bolus insulin, off insulin gtt. I agree that depression is a factor here as well. Met with Dm educator. Interested in CGM. Endorses willingness to follow up with Dr Crowell and states that he is interested in an insulin pump. Qualifiers: Diabetes mellitus type: type 2 Diabetes mellitus complication detail: without coma Qualified Code(s): E11.10 - Type 2 diabetes mellitus with ketoacidosis without coma (2) Alcohol abuse: Status: Chronic Assessment and plan: CIWA scores have been 1-2. Will monitor for w/d. Initiated on gabapentin for chronic pain, and this might be helping with sx of w/d as well. (3) Sinus pressure: Status: Acute Assessment and plan: Also reports a sore throat. Checking for strep; I suspect he has post-nasal drip. Start zyrtec. Consider abx if febrile. (4) Smoker: Status: Chronic Assessment and plan: Received counseling against smoking on this admission - was not interested in nicotine replacement. (5) Chronic back pain: Status: Chronic Assessment and plan: Continue gabapentin 300 mg PO TID Qualifiers: Back pain location: low back pain Back pain laterality: right Sciatica presence: without sciatica Qualified Code(s): M54.5 - Low back pain; G89.29 - Other chronic pain (6) DVT prophylaxis: Status: Acute Assessment and plan: SC enoxaparin (7) Discharge planning issues: Status: Acute Assessment and plan: Full code Keep in ICU until 4 pm bloodwork is back to ensure he did not go back into DKA after lunch. Total Critical Care Time 45 minutes. Subjective Subjective Interval history since last seen: Off insulin gtt. Transitioned to basal bolus insulin and started a diet. c/o Sore throat. No cough. Denies dizziness, chest pain, shortness of breath, nausea. Has been drinking a lot of water. COVID neg at [place]. Refused lovenox (concerned about a potential bruise; warned of risks by nursing). CIWA zeros. Took lantus yesterday - does not remember morning or night. He does not take it on a schedule. Met with diabetes education and is interested in a CGM. Exam Narrative Exam Narrative: General: Pleasant middle-aged male who appears comfortable in bed, tired, A&Ox3 HEENT: EOMI, dry MM Heart: RRR, +[place] Lungs: CTAB Abdomen: soft,nontender, nondistended Extremities: no edema BLE's Objective Last Vital Signs Temp 37.3 C 10/28/20 07:20 Pulse 117 H 10/28/20 05:00 Resp 20 10/28/20 05:01 BP 146/91 H 10/28/20 05:00 Pulse Ox 96 10/28/20 05:01 Laboratory Results - last 24 hr 10/28/20 10/28/20 10/28/20 05:03 06:25 06:25 Sodium 133 L 134 L Potassium 3.4 L 3.7 Chloride 94 L 96 L Carbon Dioxide 17.6 L 20.2 L Anion Gap 21.4 H 17.8 H BUN 11 10 Creatinine 1.1 1.0 Estimated GFR/1.73 m2 >= 60.00 >= 60.00 Glucose 233 H 176 H Hemoglobin A1c Calcium 7.7 L 7.8 L Phosphorus < 2.0 L Magnesium 1.6 L Total Bilirubin 1.2 H Conjugated Bilirubin 0.4 H AST 98 H ALT 73 H Alkaline Phosphatase 175 H Total Protein 7.4 Albumin 3.3 L 10/28/20 06:25 Sodium Potassium Chloride Carbon Dioxide Anion Gap BUN Creatinine Estimated GFR/1.73 m2 Glucose Hemoglobin A1c 11.8 H Calcium Phosphorus Magnesium Total Bilirubin Conjugated Bilirubin AST ALT Alkaline Phosphatase Total Protein Albumin
[2020-10-28] MEDS: MAGNESIUM SULFATE 4 GM/100 ML BAG IVPB (09:03)
[2020-10-28 10:51] LABS: Anion Gap 10.2 mmol/L (3-11); BUN 11 mg/dL (7-18); CO2 25.8 mmol/L (21.0-32.0); CREATININE 0.9 mg/dL (0.70-1.30); Calcium 8.2 mg/dL (8.5-10.1); Chloride 98 mmol/L (98-107); Glucose 99 mg/dL (74-106); Magnesium 2.2 mg/dL (1.8-2.4); PHOSPHORUS < 2.0 mg/dL (2.6-4.7); Potassium 3.3 mmol/L (3.5-5.1); Sodium 134 mmol/L (136-145)
[2020-10-28] MEDS: Potassium Chloride 20 MEQ TABCR 40 MEQ PO ×2 (12:15→17:57)
[2020-10-28 12:33] LABS: COMMENT (LAB VIEW ONLY) 118.24 mg/dL; Microalb ug/mg Crea 159.4 ug/mg Cr
--- NOTE | 2020-10-28 12:39 | W.INDIABCONS ---
Date of service: 10/28/20 Time of Service: 12:39 Diabetes Inpatient Consult DESCRIPTION/ASSESSMENT: Met with Gildardo in ICU. This is second DKA in last 6 months. IDDM secondary to pancreatitis secondary to ETOH abuse. Most recent A1C: 11.8% indicating poorly controlled diabetes. Educated Gildardo on benefits of continuous glucose monitor/insulin pump to better manage DM- he is interested and states he will f/u with PCP after discharge. Provided education on CGM and optimal diet for IDDM. Provided education on sick day management- written material and contact information. Recommend follow up for outpatient diabetes education. PLAN: Continue current meal plan will follow up with PCP re: script for CGM, insulin pump and will provide diabetes self management education in outpatient setting. Time Spent in Nutritional Counseling and Treatment: 20
--- NOTE | 2020-10-28 12:45 | PDOC.CMIN ---
- If Service Date Differs Date of service: 10/28/20 Time of Service: 12:45 Care Management Initial Assess REASON FOR HOSPITALIZATION:: DKA PAST MEDICAL HISTORY/PAST SURGICAL HISTORY:: Acute on chronic pancreatitis. Alcohol abuse. Chronic back pain. Diabetes mellitus type 2, uncontrolled, without complications. Essential hypertension. Smoker PREVIOUS FUNCTIONAL STATUS/SOCIAL/FAMILY SUPPORTS:: Paresh resides in [place], [place] with his fiance, Bridget and children. He is independent with ADLs in the community. He previously served in the [employer] and reports chronic back pain r/t his years of service. CURRENT FUNCTIONAL STATUS:: Gildardo remains in the ICU, he met with [facility] nutrition to discuss CGM and PCP and nutrition follow up. He was fully engaged. ADVANCE DIRECTIVES:: None on file at [facility]. Has patient been provided with info about the portal/API?: Yes Did the patient sign up for the portal?: No CODE STATUS:: Full Code INSURANCE COVERAGE / FINANCIAL ISSUES:: Medicaid. [facility] CURRENT HOME/COMMUNITY SERVICES/EQUIPMENT:: Glucometer PRIMARY CARE PHYSICIAN:: Graeme Crowell POTENTIAL DISCHARGE NEEDS:: Follow up appointments with PCP, diabetic [id number]. PATIENT/FAMILY EDUCATION NEEDS:: Review discharge instructions, discuss Ask Me Three. ANTICIPATED BARRIERS TO DISCHARGE:: None identified at this time. TRANSPORTATION:: Via private vehicle with his . PLAN:: Paresh will return home when ready per MD. He will follow up with his PCP and plan of care as prescribed. Anticipate he will have outpatient follow up with diabetic education for CGM as well. He will transport via private vehicle with his . CM continues to follow.
[2020-10-28] MEDS: Insulin Aspart 300 UNITS/3 ML PEN SC ×3 (13:53→21:50)
[2020-10-28] MEDS: POTASSIUM CHLORIDE/0.9% NACL 1,000 ML 150 MEQ IV ×2 (13:54→22:09)
--- NOTE | 2020-10-28 14:37 | PHA.REVIEW ---
Pharmacy Admission Review - Admission Clinical Review (Last Updated 10/28/20 @ 02:23 by Graeme Crowell) Sinus pressure (Acute) Discharge planning issues (Acute) DVT prophylaxis (Acute) DKA (diabetic ketoacidoses) (Acute) No Known Allergies Allergy (Unverified 05/04/20 17:05) Resuscitation Status Full Code Weight 72.7 kg - Renal Dosing Renal Dosing: BUN 11 mg/dL (7-18) 10/28/20 10:16 Creatinine 0.9 mg/dL (0.70-1.30) 10/28/20 10:16 Medications needing adjustments: Reviewed (Crcl ~102 mL/min current meds okay) - Anticoagulation Anticoagulation: Creatinine 0.9 mg/dL (0.70-1.30) 10/28/20 10:16 DVT Prohphylaxis: Reviewed Medications: Enoxaparin - Opiate Usage Evaluate Pain Scale/Pains Meds: N/A - Relevant Labs Sodium 134 mmol/L (136-145) L 10/28/20 10:16 Potassium 3.3 mmol/L (3.5-5.1) L 10/28/20 10:16 Chloride 98 mmol/L (98-107) 10/28/20 10:16 Phosphorus < 2.0 mg/dL (2.6-4.7) L 10/28/20 10:16 Magnesium 2.2 mg/dL (1.8-2.4) 10/28/20 10:16 Electrolytes, C-Reactive P, ESR: Reviewed (mag, K+, and phos replacement ordered) - DM Control DM Control: Glucose 99 mg/dL (74-106) D 10/28/20 10:16 Hemoglobin A1c 11.8 % (<5.7) H 10/28/20 06:25 Finger Stick Blood Glucose 159 Finger Stick Blood Glucose 159 Finger Stick Blood Glucose 159 Finger Stick Blood Glucose 75 Finger Stick Blood Glucose 75 Finger Stick Blood Glucose 75 Finger Stick Blood Glucose 97 Finger Stick Blood Glucose 97 Finger Stick Blood Glucose 100 Insulin Dosing: Reviewed (scheduled glargine and aspart, and sliding scale aspart ordered) - Heart Failure/OH EF%, CODY's, B-Blockers, Diuretics: N/A - BP Control BP Control: Blood Pressure [Left Arm] 125/89 Blood Pressure 137/83 Blood Pressure 123/106 Blood Pressure 125/67 Blood Pressure 131/89 Blood Pressure 132/82 Blood Pressure 134/82 Blood Pressure 136/88 Blood Pressure 149/97 If elevated: Reviewed (HR has been elevated so far this admission) - Qtc Review If Elevated: N/A - IV to PO Switch IV Medications: Reviewed - Home Meds Home Med List reviewed: Reviewed (Med rec not complete. PCP listed as Dr. Crowell but per H&P pt never showed for appt. Per pharmacy pt hasn't filled any meds since last discharge in June.) - Current meds Current Medication Order Review: Reviewed - Comments Comments/Follow Ups: Watch HR, BP, BG, electrolytes and for med changes.
[2020-10-28 17:10] LABS: Anion Gap 7.9 mmol/L (3-11); BUN 10 mg/dL (7-18); CO2 27.1 mmol/L (21.0-32.0); CREATININE 0.9 mg/dL (0.70-1.30); Calcium 8.4 mg/dL (8.5-10.1); Chloride 97 mmol/L (98-107); Glucose 128 mg/dL (74-106); Magnesium 2.3 mg/dL (1.8-2.4); PHOSPHORUS < 2.0 mg/dL (2.6-4.7); Potassium 3.2 mmol/L (3.5-5.1); Sodium 132 mmol/L (136-145)
[2020-10-28] MEDS: Normal Saline Flush 10 ML SYR (18:52)
[2020-10-28] MEDS: Cetirizine 10 MG TAB PO (19:00)
[2020-10-28] MEDS: Atorvastatin 20 MG TAB PO (21:49)
[2020-10-29 03:07] VITALS: BP 153/92; PULSE 91; RESP 17; TEMP 36.7; O2SAT 98
[2020-10-29] MEDS: POTASSIUM CHLORIDE/0.9% NACL 1,000 ML 150 MEQ IV (05:20)
[2020-10-29 06:52] LABS: Abs Immature Grans 0.01 10^3/uL (0.0-0.06); Absolute Basophil Count 0.04 10^3/uL (0.0-0.2); Absolute Eosinophil Count 0.04 10^3/uL (0.0-0.7); Absolute Lymphocyte Count 1.75 10^3/uL (1.2-3.4); Absolute Monocyte Count 0.51 10^3/uL (0.1-0.8); Absolute Neutrophil Count 3.42 10^3/uL (1.2-6.7); Basophils % 0.7; Eosinophils % 0.7; HCT 31.2 % (40.0-50.0); HGB 11.1 g/dL (13.5-17.5); Immature Grans % 0.2; Lymphocytes % 30.3; MCH 31.6 pg (27.0-33.0); MCHC 35.6 % (32.0-36.0); MCV 88.9 fL (80-95); MPV 9.4 fL (8.0-11.0); Monocytes % 8.8; Neutrophils % 59.3; Nucleated RBC 0 %; RBC 3.51 10^6/uL (4.36-5.78); RDW 11.7 % (11.8-14.1); RDW-SD 37.3 fL; WBC 5.77 10^3/uL (4.4-10.8)
[2020-10-29 06:59] LABS: BUN 4 mg/dL (7-18); CREATININE 0.6 mg/dL (0.70-1.30); Calcium 8.1 mg/dL (8.5-10.1); Chloride 97 mmol/L (98-107); Glucose 126 mg/dL (74-106); Magnesium 1.6 mg/dL (1.8-2.4); Potassium 3.5 mmol/L (3.5-5.1); Sodium 133 mmol/L (136-145)
[2020-10-29 07:19] LABS: Diff Comment Diff Reviewed; Platelet Count 100 10^3/uL (130-400); RBC Morphology Normal
[2020-10-29 07:46] VITALS: BP 162/109; PULSE 98; RESP 18; TEMP 36.8; O2SAT 99
[2020-10-29] MEDS: LORazepam 1 MG TAB PO/SL ×3 (08:06→20:42)
[2020-10-29] MEDS: Gabapentin 300 MG CAP PO ×3 (08:06→19:38)
[2020-10-29] MEDS: Thiamine 100 MG TAB PO (08:06)
[2020-10-29] MEDS: Cetirizine 10 MG TAB PO (08:07)
[2020-10-29] MEDS: Folic Acid 1 MG TAB PO (08:07)
[2020-10-29] MEDS: Multivitamin TAB 1 TAB PO (08:07)
[2020-10-29] MEDS: Insulin Aspart 300 UNITS/3 ML PEN SC ×6 (08:13→21:40)
[2020-10-29 13:12] VITALS: BP 154/105; PULSE 107; RESP 18; TEMP 36.3; O2SAT 94
[2020-10-29] MEDS: Acetaminophen 325 MG TAB 650 MG PO ×2 (13:19→20:42)
--- NOTE | 2020-10-29 15:23 | PDOC.CMDIS ---
- If Service Date Differs Date of service: 10/29/20 Time of Service: 15:23 LACE Index Scoring Tool - Questions: Length of Stay (in days): 1 Acuity (Admit via E.D.?): No Comorbidities: Diabetes w/o Complication E.D. Visits: 2 - Answers: Total Score: 4 Risk of Readmission: Low Risk Care Management Discharge Reason for Hospitalization: DKA Discharge Plan: Paresh will return home when ready per MD. He will follow up with his PCP and plan of care as prescribed. Anticipate he will have outpatient follow up with diabetic education for CGM as well. He will transport via private vehicle with his . CM continues to follow. Patient/Family Education Needs: Review discharge instructions, discuss Ask Me Three.
[2020-10-29 15:43] VITALS: BP 157/110; PULSE 97; RESP 18; TEMP 36.2; O2SAT 98
--- NOTE | 2020-10-29 16:51 | W.PM.PROGNOT ---
Date of Service Date of service: 10/29/20 Time of Service: 16:51 Assessment and Plan Assessment and plan (1) DKA (diabetic ketoacidoses): Status: Acute Assessment and plan: due to noncompliance with insulin which may be due to alcohol use, which in itself could also be contributing to his ketoacidosis. Transitioned to basal bolus insulin, off insulin gtt. I agree that depression is a factor here as well. Met with Dm educator. Interested in CGM. Endorses willingness to follow up with Dr Crowell and states that he is interested in an insulin pump. Patient now w/ rising glucose and continued ketonuria. will check stat BMP, if AG is rising then resume insulin drip otherwise continue aggressive basal/bolus insulin treatment. If glucose comes under better control tonight then plan for early discharge in the morning w/ PCP followup. Of note, patient claims [facility] yet they have not seen him pickup any Rx for insulin since Jun 2020. Qualifiers: Diabetes mellitus type: type 2 Diabetes mellitus complication detail: without coma Qualified Code(s): E11.10 - Type 2 diabetes mellitus with ketoacidosis without coma (2) Alcohol abuse: Status: Chronic Assessment and plan: CIWA scores have been 0 to 5. Will monitor for w/d. Initiated on gabapentin for chronic pain, and this might be helping with sx of w/d as well. Of note: some of his ketonuria may be d/t his alcoholism and poor oral intake of late. (3) Chronic back pain: Status: Chronic Assessment and plan: Continue gabapentin 300 mg PO TID Qualifiers: Back pain location: low back pain Back pain laterality: right Sciatica presence: without sciatica Qualified Code(s): M54.5 - Low back pain; G89.29 - Other chronic pain (4) DVT prophylaxis: Status: Acute Assessment and plan: SC enoxaparin (5) Discharge planning issues: Status: Acute Assessment and plan: discharge in the a.m. if glucose is well controlled overnight Subjective Subjective Interval history since last seen: Patient has recovered from DKA. He had been drinking 5 to 6 beers per day celebrating his son's recent graduation from [employer]. He had not been eating properly and not taking his insulin properly. His BMP this a.m. demonstrates resolution of his DKA. AG is down to 9. He has been tolerating his diet today. His MBG has been down to 108 this morning and 217 at lunch but now is up to 246. I had his nurse peform ketostix and he has moderate ketones on his UA. I will get stat BMP and if his AG is elevated I will have night hospitalist put him back on insulin drip overnight. In the interim I have increased his Novolog sliding scale to high dose/resistant scale and increased his CHO coverage and increased Lantus Objective Last Vital Signs Temp 36.2 C L 10/29/20 15:43 Pulse 97 H 10/29/20 15:43 Resp 18 10/29/20 15:43 BP 157/110 H 10/29/20 15:43 Pulse Ox 98 10/29/20 15:43 Laboratory Results - last 24 hr 10/28/20 10/29/20 10/29/20 16:25 06:22 06:22 WBC 5.77 RBC 3.51 L Hgb 11.1 L Hct 31.2 L MCV 88.9 MCH 31.6 MCHC 35.6 RDW 11.7 L Plt Count 100 L MPV 9.4 Immature Gran % 0.2 Neutrophils % 59.3 Lymphocytes % 30.3 Monocytes % 8.8 Eosinophils % 0.7 Basophils % 0.7 Nucleated RBC % 0 Absolute Neutrophils 3.42 Absolute Lymphocytes 1.75 Absolute Monocytes 0.51 Absolute Eosinophils 0.04 Absolute Basophils 0.04 RBC Morphology Normal Sodium 132 L 133 L Potassium 3.2 L 3.5 Chloride 97 L 97 L Carbon Dioxide 27.1 27.0 Anion Gap 7.9 9.0 BUN 10 4 L Creatinine 0.9 0.6 L D Estimated GFR/1.73 m2 >= 60.00 >= 60.00 Glucose 128 H 126 H Calcium 8.4 L 8.1 L Phosphorus < 2.0 L Magnesium 2.3 1.6 L
[2020-10-29 17:28] LABS: Anion Gap 9.5 mmol/L (3-11); BUN 5 mg/dL (7-18); CO2 27.5 mmol/L (21.0-32.0); CREATININE 0.7 mg/dL (0.70-1.30); Calcium 8.9 mg/dL (8.5-10.1); Chloride 93 mmol/L (98-107); Potassium 3.4 mmol/L (3.5-5.1); Sodium 130 mmol/L (136-145)
[2020-10-29 17:33] LABS: Glucose 288 mg/dL (74-106)
[2020-10-29] MEDS: amLODIPine 5 MG TAB PO (17:48)
[2020-10-29] MEDS: MAGNESIUM SULFATE 4 GM/100 ML BAG IVPB (17:52)
[2020-10-29 20:42] VITALS: BP 148/98; PULSE 103; RESP 18; TEMP 36.3; O2SAT 98
[2020-10-29] MEDS: Atorvastatin 20 MG TAB PO (21:39)
[2020-10-29] MEDS: Insulin Glargine 300 UNITS/3 ML PEN 30 UNITS SC (21:42)
[2020-10-29] MEDS: Ketorolac 15 MG/ML VIAL IVP (23:29)
[2020-10-29 23:30] VITALS: BP 161/91; PULSE 98; RESP 20; TEMP 36.9; O2SAT 100
[2020-10-30] VITALS (8 sets, daily range): BP systolic 121–154; BP diastolic 88–105; PULSE 85–118; RESP 16–20; TEMP 35.7–37.2; O2SAT 98–100
[2020-10-30] MEDS: LORazepam 1 MG TAB PO/SL (03:00)
[2020-10-30] MEDS: Acetaminophen 325 MG TAB 650 MG PO ×3 (03:01→15:28)
[2020-10-30 07:08] LABS: Anion Gap 17.7 mmol/L (3-11); BUN 7 mg/dL (7-18); CO2 20.3 mmol/L (21.0-32.0); CREATININE 0.7 mg/dL (0.70-1.30); Calcium 8.9 mg/dL (8.5-10.1); Chloride 91 mmol/L (98-107); Glucose 330 mg/dL (74-106); Potassium 3.5 mmol/L (3.5-5.1); Sodium 129 mmol/L (136-145)
[2020-10-30] MEDS: amLODIPine 10 MG TAB PO (07:47)
[2020-10-30] MEDS: Folic Acid 1 MG TAB PO (07:47)
[2020-10-30] MEDS: Cetirizine 10 MG TAB PO (07:47)
[2020-10-30] MEDS: Multivitamin TAB 1 TAB PO (07:48)
[2020-10-30] MEDS: Thiamine 100 MG TAB PO (07:48)
[2020-10-30] MEDS: Gabapentin 300 MG CAP PO ×3 (07:48→20:46)
[2020-10-30] MEDS: Insulin Aspart 300 UNITS/3 ML PEN SC ×5 (07:50→21:32)
[2020-10-30] MEDS: Insulin NPH-Human 300 UNITS/3 ML PEN 25 UNIT SC (09:39)
[2020-10-30] MEDS: Insulin Aspart 300 UNITS/3 ML PEN 22 UNITS SC (10:10)
[2020-10-30 10:39] LABS: Anion Gap 11.9 mmol/L (3-11); BUN 8 mg/dL (7-18); CO2 23.1 mmol/L (21.0-32.0); CREATININE 0.9 mg/dL (0.70-1.30); Calcium 9.2 mg/dL (8.5-10.1); Chloride 92 mmol/L (98-107); Glucose 288 mg/dL (74-106); Potassium 3.1 mmol/L (3.5-5.1); Sodium 127 mmol/L (136-145)
[2020-10-30] MEDS: Insulin Aspart 300 UNITS/3 ML PEN 15 UNITS SC (11:31)
--- NOTE | 2020-10-30 11:40 | W.PM.PROGNOT ---
Date of Service Date of service: 10/30/20 Time of Service: 11:40 Assessment and Plan Assessment and plan (1) DKA (diabetic ketoacidoses): Status: Acute Assessment and plan: d/t poor compliance and recent alcohol binge drinking. DKA resolved pretty quickly in the first 10 to 12 hours. He did well through out the day on 10/28 but unfortunately was not put back on his usual dose of basal/bolus insulin and yesterday went back into DKA. Despite resumption of his Lantus last night and an increase in the sliding scale Novolog and an increase in his CHO coverage, he went back into DKA overnight, however, he seems to be responding quickly to repeated dosing of Novolog at 0.2 to 0.3 units/kg hourly and has avoided needing insulin drip. I gave him NPH as well this morning which will help control his basal rates. Hopefully we can get him back on an AC/HS schedule and if he remains controlled overnight I will dc him home tomorrow. Qualifiers: Diabetes mellitus type: type 2 Diabetes mellitus complication detail: without coma Qualified Code(s): E11.10 - Type 2 diabetes mellitus with ketoacidosis without coma (2) Alcohol abuse: Status: Chronic Assessment and plan: CIWA scores have been low 1 to 5. (3) Chronic back pain: Status: Chronic Assessment and plan: Continue gabapentin 300 mg PO TID Qualifiers: Back pain location: low back pain Back pain laterality: right Sciatica presence: without sciatica Qualified Code(s): M54.5 - Low back pain; G89.29 - Other chronic pain (4) DVT prophylaxis: Status: Acute Assessment and plan: SC enoxaparin (5) Discharge planning issues: Status: Acute Assessment and plan: dc home tomorrow if his glucose comes under control throughout the day. He will need diabetic education follow up on how to handle sick day management and needs to be set up w/ a CGM monitor and he would do better w/ an insulin pump Subjective Subjective Interval history since last seen: patient went into DKA overnight. His BMP yesterday afternoon/evening did not show a rise in his AG however his urine ketones were positive yesterday and now this a.m. BMP demonstrated increased AG of 17 and reduced CO2 of 20.3. and lab glucose of 330. I have had nursing give him NPH of 25 units (slightly less than half his usual dose of Lantus 60 units he takes at HS) and also gave him 0.3 units/kg of Novolog (22 units). I have had nursing check his MBS hourly and given him 0.2 units Novolog/kg every hour (15 units Novolog) and his glucose is finally coming down to 185 mg/dL @ 11:30 am. I will have nursing continue to monitor his glucose hourly for couple more hours w/ both CHO coverage at 1 unit/5 gm CHO and give him additional 15 units of Novolog if his glucose is above 150 mg/dL. I will repeat his BMP at 1400 today. At this point I do not feel that he will need to be moved to the ICU for insulin drip. His BMP at 10 am already showed improvement in both his AG (11.9) and his HCO3 (23) although his K+ is down to 3.1. I will give him iv bolus along w/ oral potassium. 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 I meant to put him on protonix yesterday but this got missed. he did respond well to antacids and lidocaine which he is requesting again. Exam Narrative Exam Narrative: Black male who is alert and oriented. No CP or dyspnea but mild epigastric burning Lungs clear Heart RRR w/out murmur or rub or gallops Abdomen: soft, normal bowel sounds, nondistended, mild epigastric tenderness Objective Last Vital Signs Temp 37.2 C 10/30/20 07:53 Pulse 113 H 10/30/20 07:53 Resp 16 10/30/20 07:53 BP 148/105 H 10/30/20 07:53 Pulse Ox 99 10/30/20 07:53 Laboratory Results - last 24 hr 10/29/20 10/30/20 10/30/20 17:15 06:11 10:15 Sodium 130 L 129 L 127 L Potassium 3.4 L 3.5 3.1 L Chloride 93 L 91 L 92 L Carbon Dioxide 27.5 20.3 L 23.1 Anion Gap 9.5 17.7 H 11.9 H BUN 5 L 7 8 Creatinine 0.7 0.7 0.9 Estimated GFR/1.73 m2 >= 60.00 >= 60.00 >= 60.00 Glucose 288 H D 330 H 288 H Calcium 8.9 8.9 9.2 Magnesium 2.0
[2020-10-30] MEDS: Pantoprazole 40 MG TABCR PO ×2 (13:49→20:46)
[2020-10-30] MEDS: POTASSIUM CHLORIDE 20 MEQ/100 ML BAG 50 MEQ IVPB ×2 (13:50→16:06)
[2020-10-30] MEDS: Potassium Chloride Liquid 20 MEQ PKT 40 MEQ PO (13:50)
[2020-10-30 14:24] LABS: Anion Gap 11.3 mmol/L (3-11); BUN 11 mg/dL (7-18); CO2 25.7 mmol/L (21.0-32.0); CREATININE 0.9 mg/dL (0.70-1.30); Calcium 9.7 mg/dL (8.5-10.1); Chloride 94 mmol/L (98-107); Glucose 68 mg/dL (74-106); Potassium 3.2 mmol/L (3.5-5.1); Sodium 131 mmol/L (136-145)
--- NOTE | 2020-10-30 16:45 | CMPROGNOTE_ITS ---
Care Management Progress Note S/O: Discharge delayed due to urgent need for insulin drip per MD. No change to overall plan. CM continues to follow. A: Paresh admitted to [facility] 10/28/20 for DKA P: Paresh will return home when ready per MD. He will follow up with his PCP and plan of care as prescribed. Anticipate he will have outpatient follow up with diabetic education for CGM as well. He will transport via private vehicle with his . CM continues to follow.
[2020-10-30] MEDS: Sucralfate 1 GM TAB PO ×2 (17:08→21:31)
[2020-10-30] MEDS: Ibuprofen 600 MG TAB PO ×2 (17:15→21:31)
[2020-10-30] MEDS: Zolpidem 6.25 MG TABCR PO (21:30)
[2020-10-30] MEDS: Melatonin 3 MG TAB 9 MG PO (21:30)
[2020-10-30] MEDS: Insulin Glargine 300 UNITS/3 ML PEN 60 UNITS SC (21:31)
[2020-10-30] MEDS: Atorvastatin 20 MG TAB PO (21:31)
[2020-10-31 02:59] VITALS: BP 135/88; PULSE 100; RESP 20; TEMP 36.4; O2SAT 100
[2020-10-31] MEDS: Acetaminophen 325 MG TAB 650 MG PO ×3 (04:53→22:18)
[2020-10-31 07:46] VITALS: BP 127/90; PULSE 101; RESP 18; TEMP 35.8; O2SAT 100
[2020-10-31] MEDS: amLODIPine 10 MG TAB PO (07:59)
[2020-10-31] MEDS: Ibuprofen 600 MG TAB PO ×2 (07:59→13:29)
[2020-10-31] MEDS: Folic Acid 1 MG TAB PO (07:59)
[2020-10-31] MEDS: Gabapentin 300 MG CAP PO ×3 (07:59→20:04)
[2020-10-31] MEDS: Pantoprazole 40 MG TABCR PO ×2 (08:00→20:03)
[2020-10-31] MEDS: Sucralfate 1 GM TAB PO ×4 (08:00→22:18)
[2020-10-31] MEDS: Thiamine 100 MG TAB PO (08:00)
[2020-10-31] MEDS: Multivitamin TAB 1 TAB PO (08:01)
[2020-10-31] MEDS: Cetirizine 10 MG TAB PO (08:01)
[2020-10-31] MEDS: Insulin Aspart 300 UNITS/3 ML PEN SC ×4 (08:03→17:12)
[2020-10-31 10:43] LABS: Anion Gap 11.3 mmol/L (3-11); BUN 11 mg/dL (7-18); CO2 24.7 mmol/L (21.0-32.0); CREATININE 0.8 mg/dL (0.70-1.30); Calcium 9.3 mg/dL (8.5-10.1); Chloride 94 mmol/L (98-107); Glucose 320 mg/dL (74-106); Potassium 3.7 mmol/L (3.5-5.1); Sodium 130 mmol/L (136-145)
[2020-10-31 10:55] VITALS: PULSE 105
[2020-10-31 11:24] VITALS: BP 134/97; PULSE 100; RESP 17; TEMP 35.4; O2SAT 99
[2020-10-31] MEDS: Insulin Glargine 300 UNITS/3 ML PEN 15 UNITS SC (12:17)
--- NOTE | 2020-10-31 13:59 | W.PM.PROGNOT ---
Date of Service Date of service: 10/31/20 Time of Service: 13:59 Assessment and Plan Assessment and plan (1) Diabetes mellitus type 2, uncontrolled, without complications: Status: Chronic Assessment and plan: see below under DKA for plans. Basal/bolus dosing has been adjusted. (2) DKA (diabetic ketoacidoses): Status: Acute Assessment and plan: His DKA has pretty much resolved although I am concerned that he is still having ketones in his urine. He is eating and he has been abstinent of alcohol since admission, therefore I do not feel that this is related to his alcohol use nor is it starvation ketosis. I will aggressively treat his DM w/ escalating doses of his insulin and monitor his post prandial response. Qualifiers: Diabetes mellitus type: type 2 Diabetes mellitus complication detail: without coma Qualified Code(s): E11.10 - Type 2 diabetes mellitus with ketoacidosis without coma (3) Essential hypertension: Status: Chronic Assessment and plan: patient has been put on amlodipine which has been uptitrated from 5 mg to 10 mg daily. BP has improved coming down into the 130 to 140 systolic and diastolic readings in the 90s (he had been running 150-160's over 90's to low 100s). he has anaphylaxis to lisinopril therefore this was added to his allergy list. (4) Chronic back pain: Status: Chronic Assessment and plan: resume his prn oxycodone which he was on at home. I encouraged him to get out of bed as much as possible. Qualifiers: Back pain location: low back pain Back pain laterality: right Sciatica presence: without sciatica Qualified Code(s): M54.5 - Low back pain; G89.29 - Other chronic pain Subjective Subjective Interval history since last seen: Patient's FBS was 105 but 132 at breakfast. His post prandial glucose delia to 313. His urine still positive for ketones and his AG is borderline at 11.7 w/ normal HCO3 OF 24.7. Because he still has moderate ketones in his urine, and his glucose has risen, I feel that we are still not meeting his insulin needs w/ meals. His FBS of 105 was a bit low and he went down to 93 at 3 am. I have decr. his Lantus from 60 units to 50 units, however, I have added 15 units of Lantus in the morning and adjusted both his CHO coverage and his corrective sliding scale. Hopefully these changes will be enough that we can get him home tomorrow. Exam Narrative Exam Narrative: Exam unremarkable; alert and oriented x 3 Lungs clear heart: RRR Abdomen: soft, nontender Back normal ROM; nontender Objective Last Vital Signs Temp 35.4 C L 10/31/20 11:24 Pulse 100 H 10/31/20 11:24 Resp 17 10/31/20 11:24 BP 134/97 H 10/31/20 11:24 Pulse Ox 99 10/31/20 11:24 Laboratory Results - last 24 hr 10/30/20 10/30/20 10/31/20 14:06 Unknown 10:15 Sodium 131 L 130 L Potassium 3.2 L 3.7 Chloride 94 L 94 L Carbon Dioxide 25.7 24.7 Anion Gap 11.3 H 11.3 H BUN 11 11 Creatinine 0.9 0.8 Estimated GFR/1.73 m2 >= 60.00 >= 60.00 Glucose 68 L D 320 H D POC Glucose Cancelled Calcium 9.7 9.3
[2020-10-31 15:28] VITALS: BP 124/74; PULSE 96; RESP 17; TEMP 36.5; O2SAT 99
--- NOTE | 2020-10-31 15:51 | CMPROGNOTE_ITS ---
Care Management Progress Note S/O: Discharge delayed again per MD. No change to overall plan. CM continues to follow. A: Paresh admitted to [facility] 10/28/20 for DKA P: Paresh will return home when ready per MD. He will follow up with his PCP and plan of care as prescribed. Anticipate he will have outpatient follow up with diabetic education for CGM as well. He will transport via private vehicle with his . CM continues to follow.
--- NOTE | 2020-10-31 16:49 | CHAPLAIN ---
Paresh was resting in bed when I visited. He was pleasant, but not interested in further conversation.
[2020-10-31] MEDS: oxyCODONE 5 MG TAB PO ×2 (17:21→22:18)
[2020-10-31] MEDS: Normal Saline Flush 10 ML SYR IVP (19:50)
[2020-10-31 20:27] VITALS: BP 123/79; PULSE 111; RESP 20; TEMP 36.2; O2SAT 99
[2020-10-31] MEDS: Atorvastatin 20 MG TAB PO (22:18)
[2020-10-31] MEDS: Melatonin 3 MG TAB 9 MG PO (22:18)
[2020-10-31] MEDS: Zolpidem 6.25 MG TABCR PO (23:25)
[2020-11-01 00:03] VITALS: BP 126/85; PULSE 94; RESP 20; TEMP 36.6; O2SAT 100
[2020-11-01 03:27] VITALS: BP 122/87; PULSE 94; RESP 20; TEMP 36.5; O2SAT 100
[2020-11-01] MEDS: Ibuprofen 600 MG TAB PO (04:22)
[2020-11-01] MEDS: oxyCODONE 5 MG TAB PO ×2 (04:23→12:48)
[2020-11-01 07:07] LABS: Platelet Count 147 10^3/uL (130-400)
[2020-11-01 07:21] LABS: Anion Gap 9.4 mmol/L (3-11); BUN 11 mg/dL (7-18); CO2 24.6 mmol/L (21.0-32.0); CREATININE 0.7 mg/dL (0.70-1.30); Calcium 8.7 mg/dL (8.5-10.1); Chloride 99 mmol/L (98-107); Glucose 222 mg/dL (74-106); Potassium 3.8 mmol/L (3.5-5.1); Sodium 133 mmol/L (136-145)
[2020-11-01] MEDS: Gabapentin 300 MG CAP PO ×2 (07:57→14:21)
[2020-11-01] MEDS: amLODIPine 10 MG TAB PO (07:58)
[2020-11-01] MEDS: Cetirizine 10 MG TAB PO (07:58)
[2020-11-01] MEDS: Thiamine 100 MG TAB PO (07:58)
[2020-11-01] MEDS: Sucralfate 1 GM TAB PO ×2 (07:58→11:20)
[2020-11-01] MEDS: Multivitamin TAB 1 TAB PO (07:58)
[2020-11-01] MEDS: Folic Acid 1 MG TAB PO (07:59)
[2020-11-01] MEDS: Pantoprazole 40 MG TABCR PO (07:59)
[2020-11-01] MEDS: Insulin Aspart 300 UNITS/3 ML PEN SC ×3 (07:59→12:50)
[2020-11-01] MEDS: Insulin Glargine 300 UNITS/3 ML PEN 15 UNITS SC (08:00)
[2020-11-01 08:09] VITALS: BP 130/92; PULSE 89; RESP 19; TEMP 36.5; O2SAT 97
[2020-11-01 12:00] VITALS: BP 128/86; PULSE 88; RESP 19; TEMP 36.5; O2SAT 98
--- NOTE | 2020-11-01 14:46 | W.PM.DS.N ---
Date of service: 11/01/20 Time of Service: 14:47 DS: Diagnosis Discharge Diagnosis (1) Diabetes mellitus type 2, uncontrolled, without complications: Status: Chronic Asessment and Plan: see hospital course for details. Patient readily responded to insulin drip to treat his DKA but then had a rebound of his DKA which was aggressively treated w/out going back on insulin drip. He required aggressive adjustment of his basal/bolus/CHO coverage and met w/ the community nutrition educator who discussed going on an insulin pump and obtaining a CGM. (2) DKA (diabetic ketoacidoses): Status: Resolved (3) Essential hypertension: Status: Chronic Asessment and Plan: BP responded to norvasc. CODY-inhibitor and ARB was not used d/t patient reporting angioedema and CHANTALE from lisinopril in the past. (4) Chronic back pain: Status: Chronic Asessment and Plan: treated w/ his gabapentin, cyclobenzaprine and prn oxycodone. No new Rx were written for him Discharge Plan Disposition Patient Disposition: HOME Condition: Good Discharge Details Reason For Visit: DKA Admit Date/Time: 10/28/20 01:48 Admit Provider: Graeme Crowell Attending Provider: Graeme Crowell Primary Care Provider: Graeme Crowell Hospital Course Hospital Course: 50 yo M with insulin dependant type 2 DM and history of DKA most recently admitted to [facility] June 2020 with diabetic ketoacidosis, presented to [facility] ED today with 1 day of nausea and vomiting after 2-3 days of malaise in setting of increased alcohol use and limited insulin use. He states it started 3 days ago, was celebrating his son's graduation from [employer] and drinking 6-8 beers/day. He wasn't using his insulin regularly during this time, though he did take one dose yesterday. He also c/o feeling generally weak. He recognized the symptoms of DKA and presented to the ED in [place]. They do not have ICU beds, was transferred to [facility] after starting fluids and insulin drip in ED. Patient was placed in the ICU and was treated w/ insulin drip and iv fluids. Admission labs were done at [facility] ED and were not available for this reviewer. Glucose on arrival to [facility] was 297 which quickly declined overnight on insulin to 94. On the morning of 10/28 he was switched from insulin drip to basal/bolus insulin after his serial BMP demonstrated resolution of his anion gap. He was given 20 units of Lantus that morning and begun on moderate dose Novolog along w/ carb coverage and was started on 20 units Lantus at HS. However throughout the day on 10/29 his glucose delia into the mid to high 200's and his urine was demonstrating continued ketones. Discharge was delayed in order to adjust his basal/bolus dosing. Repeat BMP's taken on 10/29 demonstrated rising AG and lowering of his CO2 consistent w/ return of DKA. Rather than putting him back in ICU on insulin drip I made a decision to aggressively treat his hyperglycemia on med/surg because he was asymptomatic and because he has demonstrated that he quickly turns around. Also we had limited ICU capacity. His primary nurse was accepting of the challenge of checking hourly glucose through the morning and w/ a bolus of 0.3 units/kg of Novolog and hourly dosing of 0.2 units/kg every hour for the first 3 hours of the morning we were able to reverse this early return of DKA. Blood sugars through 10/29 remained in the mid 200's but declined to low 200's by bedtime. AG had risen to 17 and COS had declined to 20 on the am of 10/30. By the evening of 10/30 his AG dropped to 11.9 and CO2 was up to 23. He was put back on basal/bolus insulin w/ more aggressive sliding scale and more aggressive CHO coverage and higher bedtime insulin. However on the a.m. of 10/31 his AG remained at 11.3 and his fasting lab glucose wsa 320. However review of his finger stick glucose taken during the night/early am hours of 10/31 revealed that he was having hypoglycemia w/ glucose of 93 at 2:54 am (after a bedtime glucose of 236 at 21:32). It was suspected that he was having a rebouond hyperglycemia effect. He was kept one more day until 11/01 so that his basal/bolus/CHO coverage could be adjusted. He was seen by certified lactation educator who indicated that she would follow up w/ him and his PCP about getting a CGM for closer monitoring and discuss w/ the patient and PCP about the patient being a candidate for an insulin pump. On the morning of 11/01 his lab drawn fasting glucose was 222 but his AG was now down to 9.4 w/ CO2 of 24.6. His fingerstick glucose throughout 11/01 ranged from fasting 224 as the highest and 2hr pc breakfast was 215 @ 10:05 am and his ac lunch was 117 @ 11:39 and his 2h pc lunch was 126 @ 14:28. He was on a CHO coverage of 1 unit per 5 gm carbs and a insulin resistant dose sliding scale along w/ Lantus 50 units (previously he was put back on his 60 units nightly which he says he was on at home but this led to the nocturnal hypoglycemia). Patient was no longer having ketonuria and w/ his AG normalized it was felt that he could be safely discharged and managed as an outpatient w/ follow up through his PCP and the certified lactation educator. He was put on CHO coverage of 2 unit/10 gm CHO and 2 units/30 mg/dL rise in glucose over 150. His basal insulin was set at 50 units of Lantus at bedtime. He was instructed to monitor his AC and 2hr PC glucose for next several days to see if the CHO coverage was adequate to control his post prandial glucose. He was also cautioned to watch for nocturnal hypoglcyemia as this may be a cause of his fasting glucose readings being too high. I suggested that if he finds that he has to get up during the night that he keep his glucometer nearby and check his glucose readings. I think that he would be more optimally controlled w/ a combo of a CGM and an insulin pump. community nutrition educator will pursue this w/ his PCP. During this hospitalization his hypertension was addressed w/ intiation of norvasc. Lisinopril had been prescribed previously but patient states that he once had lisinopril and developed acute renal failure and angioedema and was told by a warp placer at [facility] to never take an CODY inhibitor again. BP had been running in the 150's to upper 160's over diastolic in the 90's to low 100's and after norvasc his BP came down to 120's to 130/70's to 80's. Home Meds and New Rx's Prescriptions: New amlodipine 10 mg Tablet 10 mg PO DAILY Qty: 30 RF: 1 B-Complex With B-12 2.5 mg-2.5 mg- 5 mg-100 mcg tablet 1 tab PO DAILY Qty: 30 RF: 0 Continued (DME) Ketone Urine Test Strip See Rx Instructions .ROUTE .MEDSUPPLY Qty: 25 RF: 0 cyclobenzaprine 10 mg Tablet 10 mg PO TID PRN PRNQty: 30 RF: 0 oxycodone 5 mg Tablet 5 mg PO Q4H PRN PRNQty: 20 RF: 0 insulin aspart U-100 [Novolog PenFill U-100 Insulin] 100 UNIT/ML cartridge 1 - 10 unit SQ DIRECTED Qty: 10 RF: 1 Changed Lantus U-100 Insulin 100 UNITS/ML solution 50 unit subcut HS Qty: 10 RF: 1 Discharge Instructions Instructions: Diabetic Ketoacidosis (DC) Additional Instructions: monitor your glucose before meals and 2h after meals and at bedtime. You should take your novolog based upon what your glucose readings are before you meal and based upon an estimate of how much carbohydrates you are about to consume. Your carbohydrate coverage has been increased to 2 units of Novolog per 10 gm of carbohydrates. A low carbohydrate meal would be 30 gm or less, a moderate amount of carbohydrates would be 60 gm or less and a high carbohydrate meal would be 90 gm or more. So a low carbohydrate meal would require at least 6 units of Novolog, moderate carb meal would be 12 units and a large carbohydrate meal would be 18 units. In addition to your carbohydrate coverage, you will need to adjust your total dose of Novolog based on what your premeal glucose readings are. If your gluocse is over 150 mg/dL then you should take 2 units for every 30 mg/dL rise in your glucose. For example if your premeal glucose is 180 then you would need 2 units plus your carb coverage. Your Lantus dose was not changed as your fasting glucose has been fine (90's to low 100's). Checking a 2 hour post meal glucose can help to determine whether or not you are getting adequate coverage w/ the Novolog for your meals. You should follow up w/ the certified lactation educator to obtain a CGM (continuous glucose meter) and insulin pump which would help control your high and low glucose readings. Stand Alone Forms: Nursing Discharge Form Referrals: Graeme Crowell [Primary Care Provider] - 11/16/20 1:30 pm Activity:: Activity as Tolerated Equipment/Supplies:: No Equipment Needed Diet:: Carb Counting Discharge Orders Discharge Orders: Discharge Order (Routine); Ordered 11/01/20 Ordered By: Kayden Suero Discharge Data Discharge Date/Time-TO BE ENTERED AT DEPARTURE: 11/01/20 16:23 DS: Summary Time Spent with Patient providing and/or coordinating discharge services: Less than 30 minutes Status at Discharge Functional status at discharge: independent ambulation Overall status at discharge: patient is back to baseline Mental Status: mental status grossly normal Speech and Movement: speech and movement normal Mood: congruent mood Affect: normal affect Exam Narrative Exam Narrative: Exam unremarkable; alert and oriented x 3 Lungs clear heart: RRR Abdomen: soft, nontender Back normal ROM; nontender Psych Mental Status: mental status grossly normal Speech and Movement: speech and movement normal Mood: congruent mood Affect: normal affect DS: Data Vitals/I&O Vitals and I&O: Vital Signs Temperature 36.5 C 11/01/20 12:00 Temperature Source Temporal Artery Scan 11/01/20 12:00 Pulse 88 11/01/20 12:00 Pulse Rhythm Regular 11/01/20 08:50 Pulse 100 H 10/28/20 23:10 Respiratory Rate 19 11/01/20 12:00 Respiratory Effort Non-Labored 11/01/20 08:50 Respiratory Depth Normal 11/01/20 08:50 Respiratory Pattern Normal 11/01/20 08:50 Blood Pressure 128/86 11/01/20 12:00 Blood Pressure Mean 106 10/28/20 23:01 Blood Pressure Position Supine 10/28/20 21:35 Pulse Oximetry 98 11/01/20 12:00 Oxygen Delivery Method Room Air 11/01/20 12:00 Oxygen Flow Rate 0 11/01/20 12:00 Pain Level 5 11/01/20 12:48 Comment 10/30/20 15:09 Intake & Output 10/31/20 11/01/20 11/01/20 23:59 11:59 23:59 Intake Total 1260 / 1500 360 / 970 610 / 970 Output Total 300 / 300 Balance 1260 / 1500 360 / 670 310 / 670 Weight 77.1 kg Intake: IV 50 / 50 Oral 1210 / 1450 360 / 970 610 / 970 Output: Urine 300 / 300 Other: Urine Color Yellow Straw Urine Appearance Clear Clear Urine Odor Normal Comment Patient reports normal voiding throughout the day. pT removed hat from toilet, voids independent Voiding Methods Toilet Data Completed and Pending Labs on day of discharge: Labs from last 24 hours 11/01/20 11/01/20 10/31/20 06:55 06:55 10:04 Plt Count 147 Sodium 133 L Potassium 3.8 Chloride 99 Carbon Dioxide 24.6 Anion Gap 9.4 BUN 11 Creatinine 0.7 Estimated GFR/1.73 m2 >= 60.00 Glucose 222 H D Calcium 8.7 Urine Color Cancelled Urine Clarity Cancelled Urine pH Cancelled Ur Specific [place] Cancelled Urine Protein Cancelled Urine Ketones Cancelled Urine Blood Cancelled Urine Nitrite Cancelled Urine Bilirubin Cancelled Urine Urobilinogen Cancelled Ur Leukocyte Esterase Cancelled Urine Glucose Cancelled PFSH Medical History Acute on chronic pancreatitis Alcohol abuse Chronic back pain Diabetes mellitus type 2, uncontrolled, without complications Essential hypertension Smoker Family History Other Colon cancer Heart disease Social History Smoking/Tobacco Use Status: Current every day Tobacco Type: cigarettes Smoking risk assessment performed?: Yes Alcohol Intake: current Alcohol Intake frequency: holidays/special occasions only Drug use: Never Substance use type: does not use Current gender identity: male Do you feel safe at home: Yes Do you feel safe in your relationship?: Yes Additional Social history: lives with fiance, mother, and one daugther in country in [place], [place]. Retired career [employer], was stationed in [place], went through [employer] training.
[2020-11-01] MEDS: Bacitracin 1 PACKET (15:45)
--- NOTE | 2020-11-01 16:06 | PDOC.CMDIS ---
- If Service Date Differs Date of service: 11/01/20 Time of Service: 16:06 LACE Index Scoring Tool - Questions: Length of Stay (in days): 4 - 6 Acuity (Admit via E.D.?): Yes Comorbidities: Diabetes w/o Complication E.D. Visits: 2 - Answers: Total Score: 10 Risk of Readmission: High Risk Care Management Discharge Reason for Hospitalization: DKA Discharge Plan: Paresh will return home with no additional services at this time. He will follow up with his PCP, diabetic education, and his discharge plan of care. He will transport home via private vehicle, driven by family. He is agreeable to the plan. Patient/Family Education Needs: Review discharge instructions regarding activity levels and medications, discussion of self care needs including ask me three.
== END 2020-11-01 16:23 | disposition home or self-care (01) | DRG 639 ==
LOC: ICU 20:01 → MS 10-30 16:11
PROVIDERS: Internal Medicine; Admitting Provider Family Medicine; PCP Family Medicine; Visit Provider Family Medicine
DX: E11.10 Type 2 diabetes mellitus with ketoacidosis without coma (principal); G89.29 Other chronic pain; M54.9 Dorsalgia, unspecified; I10 Essential (primary) hypertension; F10.10 Alcohol abuse, uncomplicated; F17.210 Nicotine dependence, cigarettes, uncomplicated; T38.3X6A Underdosing of insulin and oral hypoglycemic [antidiabetic] drugs, initial encounter; Z20.822 Contact with and (suspected) exposure to COVID-19; K29.20 Alcoholic gastritis without bleeding
CPT/HCPCS: 36410; 36415; 36592; 80048; 80076; 94640; J1650; 81003; 82043; 82570; 83036; 83735; 84100; 85025; 85049; 87081; 99232; 99238; 99291; J1885; J3475; J3480; J3490

== ENCOUNTER 2020-12-29 04:37 | Emergency (ER) | payer MEDICAID, SELFPAY ==
[2020-12-29] VITALS (85 sets, daily range): BP systolic 94–133; BP diastolic 64–104; PULSE 105–119; RESP 11–43; TEMP 36.3; O2SAT 88–100
--- NOTE | 2020-12-29 04:15 | RT.EKG_ITS ---
APPROVED REPORT Exam: Resting ECG Reason for Exam: TCA overdose Patient Location: E HR:118 bpm ECG Measurements Heart Rate 118 AXIS WI 144 P 41 QRSd 78 QRS 45 QT 319 T 21 QTc 448 Conclusion Sinus tachycardia...rate> 99. No STEMI. QRS 78. QTc 448. I have reviewed and interpreted ECG and agree with software generated interpretation.
--- NOTE | 2020-12-29 04:26 | ED.GENADUL_ITS ---
Discharge Plan Disposition Patient Disposition: [facility] Condition: Critical Discharge Details Clinical Impression: DKA (diabetic ketoacidosis), Hyperkalemia, Sinusitis Primary Care Provider: Graeme Crowell ED Provider: Marlo Ulloa Home Meds and New Rx's Prescriptions: No Action amitriptyline 25 mg tablet 25 mg PO QHS RF: 0 atorvastatin 40 mg tablet 40 mg PO QHS RF: 0 (DME) Ketone Urine Test Strip See Rx Instructions .ROUTE .MEDSUPPLY Qty: 25 RF: 0 cyclobenzaprine 10 mg Tablet 10 mg PO TID PRN PRNQty: 30 RF: 0 oxycodone 5 mg Tablet 5 mg PO Q4H PRN PRNQty: 20 RF: 0 amlodipine 10 mg Tablet 10 mg PO DAILY Qty: 30 RF: 1 Lantus U-100 Insulin 100 UNITS/ML solution 50 unit subcut HS Qty: 10 RF: 1 insulin aspart U-100 [Novolog PenFill U-100 Insulin] 100 UNIT/ML cartridge 1 - 10 unit SQ DIRECTED Qty: 10 RF: 1 Medical Decision Making <Karyna Jain, - Last Filed: 12/29/20 09:00> 0440 -- 50-year-old male with a history of type 1 diabetes with previous admissions for DKA, alcohol abuse, pancreatitis and hypertension [facility] status. Report per EMS was for altered mental status noted per mom with concern for amitriptyline overdose. Patient's amitriptyline was filled on 12/18 with 30 tab to take once nightly and the bottle is empty. Patient is oriented x3 but is unable to give a clear answer on taking his amitriptyline. He states he takes it all day every day and Infinity . He states he did not take an overdose of this medication today but takes it all day . Heart rate 120s in route. Heart rate 118 on arrival. He is tachypneic but with normal oxygen saturation. Moving all extremities without obvious focal data. Mucous membranes dry. No evidence of trauma. EKG notes a rate of 118, sinus, no STEMI, QRS 78, QTc 448. Suspect most likely DKA, but also consider toxic ingestion, sepsis, CVA, electrolyte abnormality, dehydration. Will place an IV, bolus IV fluids, screening labs, CT head, chest x-ray, urinalysis and tox screen. Fingerstick glucose read as high. Labs reviewed. White blood cell count 16. Sodium 140. K 6.7. Glucose 1307. Bicarb 16.7. Anion gap 22. BUN 47. Creatinine 3.1. Calcium 11.8. Troponin negative. 0530 -- Clinical presentation and work-up appears consistent with DKA. Will cancel CT head at this time as he does not appear to have any focal deficits. Portable chest x-ray obtained and unremarkable. We will continue IV fluids, start insulin bolus and drip. EKG noted a rate of 118, sinus with peaked T waves in anterior leads. His calcium was 11.8 so will recheck metabolic panel after IV fluid hydration and insulin and hold on IV calcium chloride at this time. Case discussed with [facility] and they have a bed available but may be quite some time. Discussed with [facility] transfer center and no beds available 0630 --discussed with [facility] critical care who accepts patient for transfer --accepting physician Dr. Mcguire. Although QRS 78 on EKG, in the setting of hyperkalemia and potential amitriptyline overdose, recommends 50 mEq bicarbonate. 0830 --Case endorsed to Dr. Ulloa to continue to monitor while awaiting transfer. Medical Records Medical records reviewed: Yes I reviewed the patient's medical records. Lab Data Lab results reviewed: Yes I reviewed the patient's lab results. Labs: Laboratory Tests Range/Units 12/29/20 12/29/20 12/29/20 04:50 04:50 04:50 WBC (4.4-10.8) 10^3/uL 16.22 H RBC (4.36-5.78) 10^6/uL 4.76 Hgb (13.5-17.5) g/dL 14.5 Hct (40.0-50.0) % 48.3 MCV (80-95) fL 101.5 H MCH (27.0-33.0) pg 30.5 MCHC (32.0-36.0) % 30.0 L RDW (11.8-14.1) % 12.8 Plt Count (130-400) 10^3/uL 425 H MPV (8.0-11.0) fL 11.2 H Immature Gran % 0.8 Neutrophils % 81.8 Lymphocytes % 6.4 Monocytes % 10.0 Eosinophils % 0.1 Basophils % 0.9 Nucleated RBC % % 0 Absolute Neutrophils (1.2-6.7) 10^3/uL 13.27 H Absolute Lymphocytes (1.2-3.4) 10^3/uL 1.04 L Absolute Monocytes (0.1-0.8) 10^3/uL 1.62 H Absolute Eosinophils (0.0-0.7) 10^3/uL 0.02 Absolute Basophils (0.0-0.2) 10^3/uL 0.15 RBC Morphology Normal VBG pH (7.31-7.41) VBG pCO2 (41-51) mmHg VBG pO2 mmHg VBG HCO3 (23-28) mmol/L VBG Total CO2 (24-29) mmol/L VBG O2 Saturation % VBG Base Excess (-2-3) mmol/L Sodium (136-145) mmol/L 140 Potassium (3.5-5.1) mmol/L 6.7 H* Chloride (98-107) mmol/L 101 Carbon Dioxide (21.0-32.0) mmol/L 16.9 L Anion Gap (3-11) mmol/L 22.1 H BUN (7-18) mg/dL 47 H Creatinine (0.70-1.30) mg/dL 3.1 H Estimated GFR/1.73 m2 (mL/min/1.73m2) 21.52 Glucose (74-106) mg/dL 1307 H* Calcium (8.5-10.1) mg/dL 11.8 H* Magnesium (1.8-2.4) mg/dL 3.2 H Total Bilirubin (0.2-1.0) mg/dL 0.9 AST (15-37) U/L 30 ALT (16-63) U/L 83 H Alkaline Phosphatase (46-116) U/L 149 H Troponin I (<0.06) ng/mL < 0.05 Total Protein (6.4-8.2) g/dL 9.1 H Albumin (3.4-5.0) g/dL 4.3 Urine Color (Yellow) Urine Clarity (Clear) Urine pH (5-8) Ur Specific [place] (1.005-1.025) Urine Protein (Negative) mg/dL Urine Ketones (Negative) mg/dL Urine Blood (Negative) Urine Nitrite (Negative) Urine Bilirubin (Negative) Urine Urobilinogen (Up TO 0.2) EU/dL Ur Leukocyte Esterase (Negative) Urine RBC (0-2) HPF Urine WBC (0-5) HPF Ur Epithelial Cells (Negative) HPF Urine Crystals (Negative) HPF Urine Bacteria (Negative) HPF Urine Casts (Negative) LPF Urine Mucus (Negative) Ur Culture Indicated? Urine Glucose (Negative) mg/dL Salicylates (<2.8) mg/dL 3.5 Urine Opiates Screen (Negative) Urine Methadone Screen (Negative) Acetaminophen (10-30) ug/mL < 2 Ur Barbiturates Screen (Negative) Ur Tricyclics Screen (Negative) Ur Amphetamines Screen (Negative) U Benzodiazepines Scrn (Negative) Urine Cocaine Screen (Negative) Ur THC Screen (Negative) Ethyl Alcohol (<3) mg/dL < 3.0 COVID-19 Source Range/Units 12/29/20 12/29/20 12/29/20 04:55 04:55 06:15 WBC (4.4-10.8) 10^3/uL RBC (4.36-5.78) 10^6/uL Hgb (13.5-17.5) g/dL Hct (40.0-50.0) % MCV (80-95) fL MCH (27.0-33.0) pg MCHC (32.0-36.0) % RDW (11.8-14.1) % Plt Count (130-400) 10^3/uL MPV (8.0-11.0) fL Immature Gran % Neutrophils % Lymphocytes % Monocytes % Eosinophils % Basophils % Nucleated RBC % % Absolute Neutrophils (1.2-6.7) 10^3/uL Absolute Lymphocytes (1.2-3.4) 10^3/uL Absolute Monocytes (0.1-0.8) 10^3/uL Absolute Eosinophils (0.0-0.7) 10^3/uL Absolute Basophils (0.0-0.2) 10^3/uL RBC Morphology VBG pH (7.31-7.41) 7.14 L* VBG pCO2 (41-51) mmHg 41 VBG pO2 mmHg 66 VBG HCO3 (23-28) mmol/L 14 L VBG Total CO2 (24-29) mmol/L 13 L VBG O2 Saturation % 86 VBG Base Excess (-2-3) mmol/L < -15 L Sodium (136-145) mmol/L Potassium (3.5-5.1) mmol/L Chloride (98-107) mmol/L Carbon Dioxide (21.0-32.0) mmol/L Anion Gap (3-11) mmol/L BUN (7-18) mg/dL Creatinine (0.70-1.30) mg/dL Estimated GFR/1.73 m2 (mL/min/1.73m2) Glucose (74-106) mg/dL Calcium (8.5-10.1) mg/dL Magnesium (1.8-2.4) mg/dL Total Bilirubin (0.2-1.0) mg/dL AST (15-37) U/L ALT (16-63) U/L Alkaline Phosphatase (46-116) U/L Troponin I (<0.06) ng/mL Total Protein (6.4-8.2) g/dL Albumin (3.4-5.0) g/dL Urine Color (Yellow) Yellow Urine Clarity (Clear) Clear Urine pH (5-8) 5.5 Ur Specific [place] (1.005-1.025) 1.015 Urine Protein (Negative) mg/dL 100 H Urine Ketones (Negative) mg/dL 15 H Urine Blood (Negative) Moderate H Urine Nitrite (Negative) Negative Urine Bilirubin (Negative) Negative Urine Urobilinogen (Up TO 0.2) EU/dL 0.2 Ur Leukocyte Esterase (Negative) Negative Urine RBC (0-2) HPF 10-20 H Urine WBC (0-5) HPF 3-5 Ur Epithelial Cells (Negative) HPF Few Urine Crystals (Negative) HPF Negative Urine Bacteria (Negative) HPF Few Urine Casts (Negative) LPF 3-5 Hyaline Urine Mucus (Negative) Trace Ur Culture Indicated? No Urine Glucose (Negative) mg/dL >=1000 H Salicylates (<2.8) mg/dL Urine Opiates Screen (Negative) Negative Urine Methadone Screen (Negative) Negative Acetaminophen (10-30) ug/mL Ur Barbiturates Screen (Negative) Negative Ur Tricyclics Screen (Negative) Positive A Ur Amphetamines Screen (Negative) Negative U Benzodiazepines Scrn (Negative) Negative Urine Cocaine Screen (Negative) Negative Ur THC Screen (Negative) Negative Ethyl Alcohol (<3) mg/dL COVID-19 Source Range/Units 12/29/20 06:19 WBC (4.4-10.8) 10^3/uL RBC (4.36-5.78) 10^6/uL Hgb (13.5-17.5) g/dL Hct (40.0-50.0) % MCV (80-95) fL MCH (27.0-33.0) pg MCHC (32.0-36.0) % RDW (11.8-14.1) % Plt Count (130-400) 10^3/uL MPV (8.0-11.0) fL Immature Gran % Neutrophils % Lymphocytes % Monocytes % Eosinophils % Basophils % Nucleated RBC % % Absolute Neutrophils (1.2-6.7) 10^3/uL Absolute Lymphocytes (1.2-3.4) 10^3/uL Absolute Monocytes (0.1-0.8) 10^3/uL Absolute Eosinophils (0.0-0.7) 10^3/uL Absolute Basophils (0.0-0.2) 10^3/uL RBC Morphology VBG pH (7.31-7.41) VBG pCO2 (41-51) mmHg VBG pO2 mmHg VBG HCO3 (23-28) mmol/L VBG Total CO2 (24-29) mmol/L VBG O2 Saturation % VBG Base Excess (-2-3) mmol/L Sodium (136-145) mmol/L Potassium (3.5-5.1) mmol/L Chloride (98-107) mmol/L Carbon Dioxide (21.0-32.0) mmol/L Anion Gap (3-11) mmol/L BUN (7-18) mg/dL Creatinine (0.70-1.30) mg/dL Estimated GFR/1.73 m2 (mL/min/1.73m2) Glucose (74-106) mg/dL Calcium (8.5-10.1) mg/dL Magnesium (1.8-2.4) mg/dL Total Bilirubin (0.2-1.0) mg/dL AST (15-37) U/L ALT (16-63) U/L Alkaline Phosphatase (46-116) U/L Troponin I (<0.06) ng/mL Total Protein (6.4-8.2) g/dL Albumin (3.4-5.0) g/dL Urine Color (Yellow) Urine Clarity (Clear) Urine pH (5-8) Ur Specific [place] (1.005-1.025) Urine Protein (Negative) mg/dL Urine Ketones (Negative) mg/dL Urine Blood (Negative) Urine Nitrite (Negative) Urine Bilirubin (Negative) Urine Urobilinogen (Up TO 0.2) EU/dL Ur Leukocyte Esterase (Negative) Urine RBC (0-2) HPF Urine WBC (0-5) HPF Ur Epithelial Cells (Negative) HPF Urine Crystals (Negative) HPF Urine Bacteria (Negative) HPF Urine Casts (Negative) LPF Urine Mucus (Negative) Ur Culture Indicated? Urine Glucose (Negative) mg/dL Salicylates (<2.8) mg/dL Urine Opiates Screen (Negative) Urine Methadone Screen (Negative) Acetaminophen (10-30) ug/mL Ur Barbiturates Screen (Negative) Ur Tricyclics Screen (Negative) Ur Amphetamines Screen (Negative) U Benzodiazepines Scrn (Negative) Urine Cocaine Screen (Negative) Ur THC Screen (Negative) Ethyl Alcohol (<3) mg/dL COVID-19 Source Nasal/Nares ECG Data Attestation: I personally reviewed and interpreted this ECG (s) as follows: Interpretation: Rate of 118, sinus, no acute ST elevation or depression. Peak T waves in anterior lateral leads. QRS 78. QTc 448. <Marlo Ulloa MD - Last Filed: 12/29/20 12:29> Received signout from Dr. Jain. Please see her note regarding details of the patient's initial presentation, exam and plan of care. Patient with ongoing DKA, arrange a narrow complex tachycardia, has received 3 L of fluid. Potassium progressively improving and now decreased from 6.7-5.3, now 3.6. We will add potassium. We will repeat labs. Electrolytes remain challenging and at 11:30 AM, patient's sodium has risen to 159 and will switch to half-normal, potassium is 3.4 and will continue potassium supplementation. Glucose improving, acidosis improving. CT of the head reveals significant right-sided sinusitis involving right maxillary and right frontal sinuses. We will add Unasyn. Patient to be transferred to [facility]. HPI <Karyna J Bugbee, DO - Last Filed: 12/29/20 09:00> General Mode of arrival: EMS . Date/Time Provider Initiated Documentation: 12/29/20 05:01 . Limitations to Documentation: altered mental status . Information obtained by: patient, family and EMS . HPI Narrative: Patient is a 50-year-old male with a history of type 1 diabetes, alcohol abuse, pancreatitis, hypertension, and smoker presents for altered mental status this morning. Per EMS, mom noted that patient appeared altered on the couch and she called EMS. EMS reported that there was an empty amitriptyline bottle near patient. When questioned patient regarding amitriptyline ingestion, he states he has not taken any in overdose. He is oriented x3 but unable to give a clear history on his amitriptyline regimen. The bottle states 1 tab at nighttime and the prescription was filled on 12/18/2020. He states that he takes it all day every day and also infinity. Patient denies any headache, blurry vision, chest pain, shortness of breath, abdominal pain, vomiting, diarrhea. He denies ingestion of any other medications and overdose. Nursing noted a large bag filled with prescription bottles brought in by EMS, including some that were old prescriptions and some also belonging to other people. Related Data Home Medications Medication Instructions Recorded Confirmed Ketone Urine Test #25 ea 05/06/20 10/29/20 cyclobenzaprine 10 mg PO TID PRN PRN #30 tab 06/29/20 10/29/20 oxycodone 5 mg PO Q4H PRN PRN #20 tab 06/29/20 10/29/20 Lantus U-100 Insulin 50 unit SUBCUT HS #10 ml 10/31/20 amlodipine 10 mg PO DAILY #30 tab 10/31/20 insulin aspart U-100 [Novolog 1 - 10 unit SQ DIRECTED #10 ml 10/31/20 PenFill U-100 Insulin] amitriptyline 25 mg tablet 25 mg PO QHS 11/15/20 12/29/20 atorvastatin 40 mg tablet 40 mg PO QHS 11/15/20 Previous Rx's Medication Instructions Recorded Ketone Urine Test #25 ea 05/06/20 cyclobenzaprine 10 mg PO TID PRN PRN #30 tab 06/29/20 oxycodone 5 mg PO Q4H PRN PRN #20 tab 06/29/20 Lantus U-100 Insulin 50 unit SUBCUT HS #10 ml 10/31/20 amlodipine 10 mg PO DAILY #30 tab 10/31/20 insulin aspart U-100 [Novolog 1 - 10 unit SQ DIRECTED #10 ml 10/31/20 PenFill U-100 Insulin] Allergies Allergy/AdvReac Type Severity Reaction Status Date / Time lisinopril Allergy Other (See Unverified 12/29/20 04:44 Comment) General CHARLINE: 3 Review of Systems <Karyna Jain DO - Last Filed: 12/29/20 09:00> All systems reviewed & are unremarkable except as noted in HPI and below Constitutional Constitutional: Reports as per HPI, Denies chills and Denies fever(s) Eyes Eyes: Denies blurry vision ENT Ears, Nose, Mouth, and Throat: Denies dizziness, Denies sore throat and Denies throat swelling Cardiovascular Cardiovascular: Denies chest pain and Denies dyspnea Respiratory Respiratory: Denies cough and Denies dyspnea Gastrointestinal Gastrointestinal: Denies abdominal pain, Denies diarrhea and Denies vomiting Genitourinary Genitourinary: Denies hematuria and Denies dysuria Musculoskeletal Musculoskeletal: Denies back pain and Denies numbness Integumentary/Breasts Skin/Breast: Denies lesions and Denies rash Neurologic Neurologic: Denies dizziness, Denies localized weakness and Denies numbness Allergic/Immunologic Allergic/Immunologic: Denies throat swelling PFSH <Karyna Jain DO - Last Filed: 12/29/20 09:00> Medical History Acute on chronic pancreatitis Alcohol abuse Chronic back pain Diabetes mellitus type 2, uncontrolled, without complications Essential hypertension Smoker Family History Other Colon cancer Heart disease Social History Smoking/Tobacco Use Status: Current every day Tobacco Type: cigarettes Smoking risk assessment performed?: Yes Alcohol Intake: current Alcohol Intake frequency: holidays/special occasions only Drug use: Never Substance use type: does not use Current gender identity: male Do you feel safe at home: Yes Do you feel safe in your relationship?: Yes Additional Social history: lives with fiance, mother, and one daugther in country in [place], [place]. Retired career [employer], was stationed in [place], went through [employer] training. Exam <Karyna Jain DO - Last Filed: 12/29/20 09:00> Const General: cooperative and healthy appearing Orientation: alert and awake [facility] Head: normal to inspection Ears: hearing grossly normal bilaterally and external ears normal General nose exam: external nose normal Face and sinus: normal facial exam Mouth: mucous membranes dry Teeth and gingiva: dentition normal Throat: posterior oropharynx normal Eyes General: appearance normal, both eyes and all related structures Eyelids: eyelids normal Pupils: PERRL EOM: EOM intact bilaterally Neck Neck: normal visual inspection Lymphatic: no lymphadenopathy noted Chest Chest: normal inspection of the chest Resp Effort & Inspection: normal respiratory effort and able to speak in complete sentences Auscultation: clear to auscultation bilaterally Cardio Rate: regular rate Rhythm: regular rhythm GI Inspection: normal to inspection Palpation: soft, not firm, no guarding, no hepatosplenomegaly, no masses and nontender Auscultation: normal bowel sounds Back/Spine/Pelvis Back: no CVA tenderness Skin General skin exam: no rashes or lesions noted Neuro General: patient alert, patient awake, patient oriented x3, moves all extremities, no meningeal signs and no focal motor deficits Speech: speech normal Motor: muscle tone normal throughout and strength 5/5 throughout Sensory Exam: no sensory deficits noted Extrem General: normal to inspection, full ROM and capillary refill normal Psych Appearance: grossly normal Mental Status: mental status grossly normal Speech and Movement: speech and movement normal Affect: normal affect Thought Process: normal <Marlo Ulloa MD - Last Filed: 12/29/20 12:29> Critical Care Time Critical Care Time: Yes Total Critical Care Time: 30 Attestation: Bedside management, review of records, discussion with family. Sign Out <Karyna Jain DO - Last Filed: 12/29/20 09:00> Sign Out Data: Sign Out Comment: Awaiting transfer to [facility] once bed available. May need to order additional IV fluids and metabolic panel for DKA and monitoring glucose to make adjustments as needed for insulin gtt per [facility] protocol. Last updated by Karyna Jain DO at 12/29/20 08:16
[2020-12-29 04:56] LABS: Abs Immature Grans 0.13 10^3/uL (0.0-0.06); Absolute Monocyte Count 1.62 10^3/uL (0.1-0.8); Basophils % 0.9; Eosinophils % 0.1; HCT 48.3 % (40.0-50.0); HGB 14.5 g/dL (13.5-17.5); Immature Grans % 0.8; Lymphocytes % 6.4; MCH 30.5 pg (27.0-33.0); MCV 101.5 fL (80-95); MPV 11.2 fL (8.0-11.0); Neutrophils % 81.8; Nucleated RBC 0 %; Platelet Count 425 10^3/uL (130-400); RBC 4.76 10^6/uL (4.36-5.78); RDW 12.8 % (11.8-14.1); RDW-SD 47.9 fL; WBC 16.22 10^3/uL (4.4-10.8)
[2020-12-29 05:16] LABS: *AMPHETAMINES SCREEN URINE Negative (Negative); *BARBITURATES SCREEN URINE Negative (Negative); *BENZODIAZEPINES SCREEN URINE Negative (Negative); Cannabinoids THC Negative (Negative); Cocaine Screen,Urine Negative (Negative); METHADONE URINE SCREEN Negative (Negative); OPIATES URINE SCREEN Negative (Negative)
[2020-12-29 05:18] LABS: ALT 83 U/L (16-63); AST 30 U/L (15-37); Albumin 4.3 g/dL (3.4-5.0); Alkaline Phosphatase 149 U/L (46-116); Anion Gap 22.1 mmol/L (3-11); BUN 47 mg/dL (7-18); Bilirubin, Total 0.9 mg/dL (0.2-1.0); CO2 16.9 mmol/L (21.0-32.0); CREATININE 3.1 mg/dL (0.70-1.30); Chloride 101 mmol/L (98-107); Estimated GFR 21.52 (mL/min/1.73m2); Magnesium 3.2 mg/dL (1.8-2.4); Sodium 140 mmol/L (136-145); Total Protein 9.1 g/dL (6.4-8.2)
[2020-12-29] MEDS: Normal Saline 1,000 ML 1000 ML IV (05:19)
[2020-12-29 05:22] LABS: Absolute Basophil Count 0.15 10^3/uL (0.0-0.2); Absolute Eosinophil Count 0.02 10^3/uL (0.0-0.7); Absolute Lymphocyte Count 1.04 10^3/uL (1.2-3.4); Absolute Neutrophil Count 13.27 10^3/uL (1.2-6.7); Diff Comment Agrees w/ Instrument; RBC Morphology Normal
[2020-12-29 05:23] LABS: Tricyclic Antidepressants Positive (Negative)
[2020-12-29 05:23] LABS: ETHANOL BLOOD < 3.0 mg/dL (<3); Salicylate 3.5 mg/dL (<2.8); Troponin I < 0.05 ng/mL (<0.06)
[2020-12-29 05:26] LABS: Acetaminophen < 2 ug/mL (10-30)
[2020-12-29 05:33] LABS: Calcium 11.8 mg/dL (8.5-10.1)
[2020-12-29 05:34] LABS: Glucose 1307 mg/dL (74-106); Potassium 6.7 mmol/L (3.5-5.1)
[2020-12-29 05:46] LABS: Bilirubin Negative (Negative); Blood Moderate (Negative); Clarity Clear (Clear); Glucose >=1000 mg/dL (Negative); Ketones 15 mg/dL (Negative); Leukocyte Esterase Negative (Negative); Nitrite Negative (Negative); Specific Gravity 1.015 (1.005-1.025); Urobilinogen 0.2 EU/dL (Up TO 0.2); pH 5.5 (5-8)
[2020-12-29] MEDS: Insulin REGULAR-Human 100 UNITS/ML UNIT 10 UNITS IV (05:52)
[2020-12-29 05:55] LABS: Bacteria Few HPF (Negative); Epithelial Cells Few HPF (Negative)
[2020-12-29 05:56] LABS: C & S Indicated? No; Casts 3-5 Hyaline LPF (Negative); Crystals Negative HPF (Negative); Mucus Trace (Negative)
--- NOTE | 2020-12-29 05:57 | DI.RAD_ITS ---
Exam(s) XR PORTABLE CHEST AP EXAM: XR PORTABLE CHEST AP CLINICAL HISTORY: altered mental status, r/o acute disease. TECHNIQUE: 2D digital imaging was performed. COMPARISON: CR,XR XR CHEST 2V PA LATERAL from 05/04/2020 FINDINGS: Heart size is normal. The mediastinum is not widened. Left lung is clear. There is slightly increased markings in the right parahilar region, possibly jus t vascular markings. No pleural effusions. No pulmonary edema. No pneumothorax. IMPRESSION: Mildly increased markings in the right parahilar region. Recommend nonportable PA and lateral views when clinically possible. DATA REPOSITORY: RADIATION DOSE DELIVERED: All CT scans at this facility use at least one of these dose optimization techniques: automated exposure control; mA and/or kV adjustment per patient size (includes targeted e xams where dose is matched to clinical indication); or iterative reconstruction.
[2020-12-29] MEDS: INSULIN REGULAR IN 0.9 % NACL 100 UNIT/100 ML BAG 7 UNIT IV (06:11)
[2020-12-29 06:20] LABS: HCO3 (Venous) 14 mmol/L (23-28); O2 Sat (Venous) 86 %; TCO2 (Venous) 13 mmol/L (24-29); pCO2 (Venous) 41 mmHg (41-51); pO2 (Venous) 66 mmHg
[2020-12-29 06:23] LABS: Source Nasal/Nares
[2020-12-29 06:23] LABS: pH (Venous) 7.14 (7.31-7.41)
[2020-12-29 06:37] LABS: ALT 79 U/L (16-63); AST 37 U/L (15-37); Albumin 3.9 g/dL (3.4-5.0); Alkaline Phosphatase 139 U/L (46-116); Anion Gap 23.6 mmol/L (3-11); BUN 47 mg/dL (7-18); Bilirubin, Total 0.8 mg/dL (0.2-1.0); CO2 14.4 mmol/L (21.0-32.0); CREATININE 2.8 mg/dL (0.70-1.30); Calcium 10.6 mg/dL (8.5-10.1); Chloride 107 mmol/L (98-107); Estimated GFR 24.21 (mL/min/1.73m2); Potassium 5.3 mmol/L (3.5-5.1); Sodium 145 mmol/L (136-145); Total Protein 8.5 g/dL (6.4-8.2)
[2020-12-29] MEDS: Sodium Bicarbonate 50 MEQ/50 ML VIAL IJ (06:45)
[2020-12-29 06:49] LABS: Glucose 1234 mg/dL (74-106)
[2020-12-29] MEDS: Normal Saline 1,000 ML 150 ML IV (06:58)
[2020-12-29 07:14] LABS: COVID-19 PCR Negative (Negative)
--- NOTE | 2020-12-29 08:07 | DI.VRAD_ITS ---
PROCEDURE INFORMATION: Exam: XR Chest Exam date and time: 12/29/2020 5:39 AM Age: 50 years old Clinical indication: Other: Altered mental status TECHNIQUE: Imaging protocol: XR of the chest. Views: 1 view. COMPARISON: CR XR CHEST 2V PA LATERAL 05/04/2020 6:01 PM FINDINGS: Lungs: Unremarkable. No consolidation. Pleural spaces: Unremarkable. No pleural effusion. No pneumothorax. Heart/Mediastinum: Unremarkable. No cardiomegaly. Bones/joints: Minimally S-shaped scoliosis of the thoracic spine. IMPRESSION: No acute findings. Dictated and Authenticated by: Sd Lei MD. Ordering:ALDA Troncoso MD
[2020-12-29 08:24] LABS: BE (Venous) -7 mmol/L (-2-3); HCO3 (Venous) 20 mmol/L (23-28); O2 Sat (Venous) 91 %; TCO2 (Venous) 18 mmol/L (24-29); pCO2 (Venous) 44 mmHg (41-51); pH (Venous) 7.26 (7.31-7.41); pO2 (Venous) 69 mmHg
[2020-12-29 09:17] LABS: ALT 78 U/L (16-63); AST 29 U/L (15-37); Albumin 4.3 g/dL (3.4-5.0); Alkaline Phosphatase 141 U/L (46-116); Anion Gap 19.9 mmol/L (3-11); BUN 45 mg/dL (7-18); Bilirubin, Total 0.5 mg/dL (0.2-1.0); CO2 20.1 mmol/L (21.0-32.0); CREATININE 2.4 mg/dL (0.70-1.30); Calcium 11.4 mg/dL (8.5-10.1); Chloride 114 mmol/L (98-107); Estimated GFR 28.92 (mL/min/1.73m2); Potassium 3.6 mmol/L (3.5-5.1); Sodium 154 mmol/L (136-145); Total Protein 8.6 g/dL (6.4-8.2)
[2020-12-29 09:25] LABS: Glucose 936 mg/dL (74-106)
[2020-12-29] MEDS: POTASSIUM CHLORIDE/0.9% NACL 1,000 ML 100 MEQ IV (10:09)
[2020-12-29] MEDS: POTASSIUM CHLORIDE 10 MEQ/100 ML BAG 100 MEQ IVPB (10:11)
[2020-12-29] MEDS: Lidocaine 2% Jelly 6 ML SYR (10:17)
--- NOTE | 2020-12-29 10:45 | DI.CT_ITS ---
Exam(s) CT HEAD WO EXAM: CT HEAD WO CLINICAL HISTORY: ms change. TECHNIQUE: Imaging Protocol: Axial computed tomography images with coronal and sagittal reformatted images were created and reviewed COMPARISON: No exams were available for comparison FINDINGS: There are no skull fractures. However, there is complete opacification of the right maxillary sinus . Also opacification of the right frontal sinus and frontoethmoidal recess. Most of the ethmoidal a ir cells are clear as are the sphenoid sinuses. Left maxillary sinus is clear. Mastoid air cells ar e clear. No fluid in the middle ear cavities. There is no evidence of intracranial hemorrhage, mass effect, or shift of midline structures. No ext ra-axial fluid collections. Ventricles are not enlarged or shifted and there is no blood within the ventricular system nor within the basal cisterns. There is a small nonhemorrhagic 4 millimeter lacunar infarct at the genu of the left internal capsule , probably not acute. IMPRESSION: No acute intracranial findings. Small nonacute appearing left-sided lacunar infarct as described abo ve. Significant sinusitis on the right side involving the right maxillary and right frontal sinuses as de scribed above. There is relative sparing of the sphenoid sinuses and ethmoidal air cells. RADIATION DOSE DELIVERED: 732.87mGy.cm Total DLP DATA REPOSITORY: All CT scans at this facility are submitted to the National Radiology Data Registry (NRDR) Dose Index Registry (DIR) with the [employer] (ACR). RADIATION OPTIMIZATION: All CT scans at this facility use at least one of these dose optimization te chniques: automated exposure control; mA and/or kV adjustment per patient size (includes targeted exa ms where dose is matched to clinical indication); or iterative reconstruction.
[2020-12-29 11:08] LABS: BE (Venous) -3 mmol/L (-2-3); HCO3 (Venous) 24 mmol/L (23-28); O2 Sat (Venous) 89 %; TCO2 (Venous) 21 mmol/L (24-29); pCO2 (Venous) 45 mmHg (41-51); pH (Venous) 7.32 (7.31-7.41); pO2 (Venous) 60 mmHg
[2020-12-29 11:25] LABS: Anion Gap 14.3 mmol/L (3-11); BUN 40 mg/dL (7-18); CO2 24.7 mmol/L (21.0-32.0); CREATININE 2.2 mg/dL (0.70-1.30); Calcium 11.4 mg/dL (8.5-10.1); Chloride 120 mmol/L (98-107); Estimated GFR 31.97 (mL/min/1.73m2); Potassium 3.4 mmol/L (3.5-5.1)
[2020-12-29 11:26] LABS: Glucose 612 mg/dL (74-106)
[2020-12-29 11:27] LABS: Sodium 159 mmol/L (136-145)
[2020-12-29] MEDS: POTASSIUM CHLORIDE/0.45% NACL 1,000 ML 50 MEQ IV (12:06)
== END 2020-12-29 13:15 | disposition short-term general hospital (02) ==
PROVIDERS: Physician Assistant; Emergency Provider Emergency Medicine; PCP Family Medicine
DX: E10.10 Type 1 diabetes mellitus with ketoacidosis without coma (principal); E87.5 Hyperkalemia; J01.80 Other acute sinusitis; E83.52 Hypercalcemia; R00.0 Tachycardia, unspecified; T43.014A Poisoning by tricyclic antidepressants, undetermined, initial encounter; Z20.822 Contact with and (suspected) exposure to COVID-19; Z03.818 Encounter for observation for suspected exposure to other biological agents ruled out
CPT/HCPCS: 36415; 51702; 80048; 80053; 80307; 82805; 87635; 93005; 96361; 96365; 96366; 96375; 99291; 70450; 71045; 80320; 80329; 81003; 81015; 83735; 84484; 85025; 93010; J3480; J3490

== ENCOUNTER 2021-04-07 02:37 | Emergency (ER) | payer MEDICAID, SELFPAY ==
[2021-04-07] VITALS (129 sets, daily range): BP systolic 105–157; BP diastolic 63–105; PULSE 86–120; RESP 6–29; TEMP 36.6–37.3; O2SAT 85–100
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
--- NOTE | 2021-04-07 02:45 | RT.EKG_ITS ---
APPROVED REPORT Exam: Resting ECG Reason for Exam: weakness Patient Location: E HR:95 bpm ECG Measurements Heart Rate 95 AXIS ME 157 P 17 QRSd 85 QRS 24 QT 378 T 20 QTc 475 Conclusion Sinus rhythm...normal P axis, V-rate 60- 99 Consider left ventricular hypertrophy...(S V1+R V5/V6) >3.50mV Normal [place] Nonspecific ST-T changes
[2021-04-07 03:14] LABS: Abs Immature Grans 0.02 10^3/uL (0.0-0.06); Absolute Basophil Count 0.01 10^3/uL (0.0-0.2); Absolute Eosinophil Count 0.01 10^3/uL (0.0-0.7); Absolute Lymphocyte Count 0.46 10^3/uL (1.2-3.4); Absolute Monocyte Count 0.37 10^3/uL (0.1-0.8); Absolute Neutrophil Count 4.14 10^3/uL (1.2-6.7); Basophils % 0.2; Eosinophils % 0.2; HCT 42.8 % (40.0-50.0); HGB 15.2 g/dL (13.5-17.5); Immature Grans % 0.4; Lymphocytes % 9.2; MCHC 35.5 % (32.0-36.0); MCV 84.6 fL (80-95); MPV 9.8 fL (8.0-11.0); Monocytes % 7.4; Neutrophils % 82.6; Nucleated RBC 0 %; RBC 5.06 10^6/uL (4.36-5.78); RDW 11.7 % (11.8-14.1); RDW-SD 35.8 fL; WBC 5.01 10^3/uL (4.4-10.8)
[2021-04-07] MEDS: Lactated Ringers 2,000 ML 1000 ML IV (03:23)
[2021-04-07 03:27] LABS: Platelet Count 61 10^3/uL (130-400)
[2021-04-07] MEDS: Ketorolac 15 MG/ML VIAL IVP (03:37)
[2021-04-07] MEDS: POTASSIUM CHLORIDE 10 MEQ/100 ML BAG 100 MEQ IVPB ×2 (03:51→05:09)
[2021-04-07 04:12] LABS: Albumin 4.1 g/dL (3.4-5.0); BUN 13 mg/dL (7-18); Bilirubin, Total 1.1 mg/dL (0.2-1.0); CREATININE 1.3 mg/dL (0.70-1.30); Calcium 9.2 mg/dL (8.5-10.1); Estimated GFR 58.67 (mL/min/1.73m2); Glucose 317 mg/dL (74-106); Total Protein 8.6 g/dL (6.4-8.2)
[2021-04-07 04:13] LABS: ALT 193 U/L (16-63); AST 548 U/L (15-37); Alkaline Phosphatase 177 U/L (46-116); Anion Gap 7.7 mmol/L (3-11); CO2 33.3 mmol/L (21.0-32.0); Chloride 81 mmol/L (98-107); ETHANOL BLOOD < 3.0 mg/dL (<10); Lipase 50 U/L (73-393)
[2021-04-07 04:17] LABS: Potassium 2.7 mmol/L (3.5-5.1); Sodium 122 mmol/L (136-145)
[2021-04-07 04:28] LABS: Troponin I < 0.05 ng/mL (<0.06)
--- NOTE | 2021-04-07 04:30 | DI.US_ITS ---
Exam(s) US ABDOMEN LIMITED EXAM: US ABDOMEN LIMITED INDICATION: elevated LFTs COMPARISON: No exams were available for comparison TECHNIQUE: Ultrasound abdomen performed using standard protocol FINDINGS: Abdominal ultrasound was performed according to the usual protocol. The liver is normal in size and shape. No focal hepatic lesion seen. There is some mild increased ec hogenicity of the hepatic parenchyma raising the possibility hepatic steatosis. There is no evidence of cholelithiasis or biliary dilatation. No gallbladder wall thickening or peric holecystic fluid collection. Portal venous flow is hepatopetal. Pancreas appears intact as visualized. The pancreatic tail was not visualized due to overlying bowel gas. . The right kidney is normal in size and shape. No renal mass, hydronephrosis, or nephrolithiasis. Abdominal aorta and IVC are of normal diameter. IMPRESSION: No evidence of acute intra-abdominal process. Possible hepatic steatosis.
[2021-04-07 04:37] LABS: Bilirubin Moderate (Negative); Blood Small (Negative); Clarity Clear (Clear); Glucose 500 mg/dL (Negative); Ketones 40 mg/dL (Negative); Leukocyte Esterase Negative (Negative); Nitrite Negative (Negative); WBC Negative HPF (0-5)
[2021-04-07 04:38] LABS: Bacteria Few HPF (Negative); C & S Indicated? No; Casts Negative LPF (Negative); Crystals Negative HPF (Negative); Epithelial Cells Few HPF (Negative); Mucus Negative (Negative)
[2021-04-07 06:16] LABS: BUN 11 mg/dL (7-18); CREATININE 1.1 mg/dL (0.70-1.30); Calcium 8.6 mg/dL (8.5-10.1); Chloride 86 mmol/L (98-107); Glucose 212 mg/dL (74-106); Potassium 3.7 mmol/L (3.5-5.1); Sodium 127 mmol/L (136-145)
[2021-04-07] MEDS: Lactated Ringers 1,000 ML 200 ML IV (06:29)
[2021-04-07 09:03] LABS: TSH (W/Ref FT4) 1.33 uIU/mL (0.36-3.74)
[2021-04-07 10:22] LABS: INR 1.3 (0.9-1.1); Prothrombin Time 13.1 sec (9.3-11.0)
[2021-04-07 11:44] LABS: Calcium 9.4 mg/dL (8.5-10.1)
[2021-04-07 11:45] LABS: Anion Gap 1.4 mmol/L (3-11); BUN 11 mg/dL (7-18); CO2 39.6 mmol/L (21.0-32.0); CREATININE 1.2 mg/dL (0.70-1.30); Chloride 89 mmol/L (98-107); Glucose 85 mg/dL (74-106); Sodium 130 mmol/L (136-145)
[2021-04-07 11:46] LABS: Potassium 2.6 mmol/L (3.5-5.1)
[2021-04-07] MEDS: POTASSIUM CHLORIDE 20 MEQ/100 ML BAG 50 MEQ IVPB (11:55)
[2021-04-07] MEDS: oxyCODONE 5 MG TAB PO (13:48)
[2021-04-07] MEDS: Potassium Chloride 20 MEQ TABCR PO (16:11)
[2021-04-10 01:59] LABS: Anaplasma phagocytophilum Negative (Negative); B. miyamotoi PCR Negative (Negative); Babesia divergens/MO-1 Negative (Negative); Babesia duncani Negative (Negative); Babesia microti Negative (Negative); Ehrlichia chaffeensis Negative (Negative); Ehrlichia ewingii/canis Negative (Negative); Ehrlichia muris eauclairensis Negative (Negative)
[2021-04-10 11:25] LABS: Lyme Ab w Rflx to Lyme Confirm Positive (Negative)
[2021-04-10 12:38] LABS: Lyme IgG Ab Negative (Negative); Lyme IgM Ab Negative (Negative)
[2021-04-10 14:07] LABS: Hepatitis A Antibody IgM Negative (Negative); Hepatitis B Core Antibody Negative (Negative); Hepatitis B surface Ag Negative (Negative); Hepatitis C Ab w Rflx HCV PCR Negative (Negative)
== END 2021-04-07 16:36 | disposition home or self-care (01) ==
PROVIDERS: Emergency Medicine; Emergency Provider Student in an Organized Health Care Education/Training Program; PCP Family Medicine
DX: R11.2 Nausea with vomiting, unspecified (principal); E87.1 Hypo-osmolality and hyponatremia; E87.6 Hypokalemia; D69.6 Thrombocytopenia, unspecified; R94.5 Abnormal results of liver function studies; R53.1 Weakness
CPT/HCPCS: 36415; 36416; 80048; 80053; 82962; 83690; 86617; 86704; 86709; 86803; 87340; 87798; 93005; 96361; 96365; 96366; 96368; 96375; 99284; 76705; 80320; 81003; 81015; 83735; 84443; 84484; 85025; 85610; 86618; 93010; J1885; J3480

== ENCOUNTER 2021-06-12 18:16 | Outpatient (REF) | payer MEDICAID, SELFPAY ==
[2021-06-12 19:08] LABS: HCT 40.4 % (40.0-50.0); HGB 13.8 g/dL (13.5-17.5); MCH 32.1 pg (27.0-33.0); MCHC 34.2 % (32.0-36.0); MPV 9.8 fL (8.0-11.0); Platelet Count 174 10^3/uL (130-400); RDW 11.6 % (11.8-14.1); RDW-SD 40.2 fL; WBC 9.34 10^3/uL (4.4-10.8)
[2021-06-12 19:16] LABS: ALT 78 U/L (16-63); AST 123 U/L (15-37); Albumin 3.9 g/dL (3.4-5.0); Alkaline Phosphatase 235 U/L (46-116); Anion Gap 14.8 mmol/L (3-11); BUN 2 mg/dL (7-18); Bilirubin, Total 0.6 mg/dL (0.2-1.0); CO2 23.2 mmol/L (21.0-32.0); CREATININE 0.5 mg/dL (0.70-1.30); Calcium 8.5 mg/dL (8.5-10.1); Chloride 98 mmol/L (98-107); Glucose 109 mg/dL (74-106); Hemoglobin A1C 10.4 % (<5.7); Potassium 3.7 mmol/L (3.5-5.1); Sodium 136 mmol/L (136-145)
== END 2021-06-12 18:17 | disposition home or self-care (01) ==
LOC: NCHCN 18:16
PROVIDERS: PCP Family Medicine; Visit Provider Family Medicine
DX: E11.9 Type 2 diabetes mellitus without complications (principal); R74.8 Abnormal levels of other serum enzymes
CPT/HCPCS: 80053; 85027; 83036; 83735

== ENCOUNTER 2021-08-24 14:06 | Emergency (ER) | payer MEDICAID, SELFPAY ==
[2021-08-24] VITALS (99 sets, daily range): BP systolic 64–107; BP diastolic 36–73; PULSE 80–100; RESP 13–45; TEMP 36.5; O2SAT 90–100
--- NOTE | 2021-08-24 14:00 | DI.RAD_ITS ---
Exam(s) XR CHEST 1V IN DI DEPT EXAM: XR CHEST 2V PA LATERAL CLINICAL HISTORY: possible stroke, r/o acute disease TECHNIQUE: 2D digital imaging was performed. COMPARISON: CR,XR XR PORTABLE CHEST AP from 12/29/2020 FINDINGS: MEDIASTINUM: Normal. HEART: Normal. Aorta mildly tortuous. PULMONARY VASCULATURE: Normal. LUNGS: Clear. PLEURAL SPACE: No pleural effusion or pneumothorax. BONE:Unremarkable for age. IMPRESSION: No acute abnormality. DATA REPOSITORY: RADIATION DOSE DELIVERED:
--- NOTE | 2021-08-24 14:00 | DI.CT_ITS ---
Exam(s) CT HEAD WO EXAM: CT HEAD WO CLINICAL HISTORY: possible stroke, r/o acute disease. TECHNIQUE: Imaging Protocol: Axial computed tomography images with coronal and sagittal reformatted images were created and reviewed COMPARISON: CT CT HEAD WO from 12/29/2020 FINDINGS: Ventricles and Extra axial spaces: Normal in size and morphology for the patient's age. Hemorrhage: None. Cerebral parenchyma: Normal. Midline shift: None. Brainstem/Cerebellum: Normal. Calvarium: Normal. Visualized Paranasal sinuses: The right maxillary sinus is completely opacified. There is opacificat ion of a few ethmoid sinuses. There is partial opacification of the right frontal sinus. Mastoids: Clear. Soft Tissues: Unremarkable. IMPRESSION: Right-sided sinus disease. No acute intracranial process. Findings called to emergency department. RADIATION DOSE DELIVERED: 749.45mGy.cm Total DLP DATA REPOSITORY: All CT scans at this facility are submitted to the National Radiology Data Registry (NRDR) Dose Index Registry (DIR) with the [employer] ([employer]). RADIATION OPTIMIZATION: All CT scans at this facility use at least one of these dose optimization te chniques: automated exposure control; mA and/or kV adjustment per patient size (includes targeted exa ms where dose is matched to clinical indication); or iterative reconstruction.
--- NOTE | 2021-08-24 14:14 | ED.GENADUL_ITS ---
Discharge Plan Disposition Patient Disposition: OTHER Condition: Critical Discharge Details Clinical Impression: DKA (diabetic ketoacidosis), Altered mental status Primary Care Provider: Graeme Crowell ED Provider: Marlo Ulloa Home Meds and New Rx's Prescriptions: No Action cyclobenzaprine 10 mg tablet 10 mg PO HS [id number] Label Comments: TAKE 1 TABLET BY MOUTH AT BEDTIIME NEEDED diltiazem HCl 120 mg capsule,extended release 24 hr 120 mg PO DAILY 0RF Label Comments: TAKE ONE CAPSULE BY MOUTH EVERY DAY duloxetine 30 mg capsule,delayed release(DR/EC) 30 mg PO DAILY 0RF Label Comments: TAKE 1 CAPSULE BY MOUTH ONCE A DAY FOR PAIN insulin aspart U-100 [Novolog Flexpen U-100 Insulin] 100 unit/mL (3 mL) Insulin Pen 3 - 30 sliding scale dose SUBCUT QMEALS 0RF Rx Instructions: 1 UNIT PER INTERVAL OF 30 FOR BLOOD SUGARS OVER 150 AND 1 UNIT FOR 10G OF CARBS Lantus Solostar U-100 Insulin 100 unit/mL (3 mL) Insulin Pen 60 unit SUBCUT DAILY 0RF multivitamin Tablet 1 tab PO DAILY 0RF nicotine 14 mg/24 hr Patch 24 Hour 1 patch TRANSDERMAL DAILY 0RF sildenafil 50 mg Tablet 50 mg PO DAILY PRN0RF Rx Instructions: administer 30 minutes to 4 hours before activity folic acid 1 mg Tablet 1 mg PO DAILY 0RF ergocalciferol (vitamin D2) 1,250 mcg (50,000 unit) Capsule 1,250 mcg PO QWEEK 0RF atorvastatin 40 mg Tablet 40 mg PO QHS 0RF Discharge Data Discharge Date/Time-TO BE ENTERED AT DEPARTURE: 08/24/21 20:57 Medical Decision Making 1416 -- 50yo M with a history of type 1 diabetes with previous admissions for DKA who presented as a stroke alert. Quick assessment of patient on arrival with EMS notes that he follows some commands with an intact gag reflex. Pupils PERRLA. Able to move all extremities. It was reported by EMS that his sugar was 300-400 with a blood pressure of 60/40. Suspect DKA. Patient sent for stat CT head and chest x-ray which were negative. BP on arrival 70/45. No evidence of trauma on exam. Heart rate within normal limits. Normal oxygen saturation. Continues to maintain airway. 1545 -- Labs reviewed and note a white blood cell count of 14. Hemoglobin of 12. Bands 8. pH 7.09. HCO3 11, lactate 5.5. Glucose 1624, bicarb 11, Anion gap 39. Troponin negative. Urinalysis notes ketones and blood but no evidence of acute infection. We will continue IV fluid hydration, start insulin bolus and drip. His EKG noted a rate of 85, sinus, no stemi. Discussed with hospitalist and as there are no acute EKG changes, will hold on bicarb, calcium and treatment of hyperkalemia. 1615 -- His BP is slowly becoming fluid responsive at 82/24. He is becoming more awake and alert. 1640 --repeat metabolic panel notes a glucose of 1630, worsening bicarb at 10.7. He does have normalization of his potassium. Significant improvement of his creatinine to 2.9. His respiratory rate is 30s but he does seem more aware. Intact gag reflex. Will hold on intubating secondary to his high respiratory rate with attempting to blow off CO2 that could not be matched with ventilator. He has significantly dry mucous membranes. Heart rate 90s. Blood pressure 85/53. We will continue IV fluid hydration. Discussed with hospitalist and he does not feel comfortable keeping patient here in this hospital due to his level of acuity and requests transfer to facility with software engineer web services. Discussed with [facility] and [facility] [place] [facility] and they do not have an software engineer web services overnight and do not feel comfortable taking patient due to his acuity. 1700 --patient remains hypotensive, 80s/50s, opening his eyes, following commands, able to answer some questions. He remains confused. Case discussed with [facility] and patient accepted for transfer. Accepting physician Dr. Brantley. 1730 --patient now more awake and alert and talking at times. Still remains confused. 1900 --bedside cardiac ultrasound performed and note normal dynamics. No evidence of pericardial effusion. Assessment of the IVC notes significant collapse with respiration indicating patient likely remains dehydrated. We will continue IV fluid hydration. Bed available at [facility] but continuing to secure transport. 1950 --repeat BMP note continued improvement in glucose at 1408, bicarb 18, potassium 5, anion gap 28, creatinine 4.9, Na 153. His insulin was decreased from 0.1 units/kg/hr (6.6 units/hr) to 0.05/units/kg/hr (3.3 units/hr). He remai ns hypotensive 80s/50s. His fluids have been switched from normal saline to half-normal saline. He has received a total of 6 L of fluid. Case discussed with [place] software engineer web services Dr. Brantley --recommends another 1 to 2 L of normal saline and to continue half-normal saline at 125 an hour. Recommends increasing the insulin drip to a total of 4.5 units/hour. 2029 --Case endorsed to Dr. Ulloa to continue to monitor while awaiting transfer. Medical Records Medical records reviewed: Yes I reviewed the patient's medical records. Imaging Data Radiologic Study: Radiologist's impression: CT HEAD WO CLINICAL HISTORY: ? possible stroke, r/o acute disease. ? TECHNIQUE:? Imaging Protocol: Axial computed tomography images with coronal and sagittal reformatted images were created and reviewed COMPARISON:? CT CT HEAD WO from 12/29/2020 FINDINGS: Ventricles and Extra axial spaces: Normal in size and morphology for the patient's age. Hemorrhage: None. Cerebral parenchyma: Normal. Midline shift: None. Brainstem/Cerebellum: Normal. Calvarium: Normal. Visualized Paranasal sinuses: The right maxillary sinus is completely opacified.? There is opacification of a few ethmoid sinuses.? There is partial opacification of the right frontal sinus. Mastoids: Clear. Soft Tissues: Unremarkable. IMPRESSION: Right-sided sinus disease.? No acute intracranial process. XR CHEST 2V PA ? LATERAL CLINICAL HISTORY:? possible stroke, r/o acute disease TECHNIQUE:? 2D digital imaging was performed. COMPARISON:? CR,XR XR PORTABLE CHEST AP from 12/29/2020 FINDINGS: MEDIASTINUM: Normal.? HEART: Normal. Aorta mildly tortuous. PULMONARY VASCULATURE: Normal. LUNGS: Clear. ? PLEURAL SPACE: No pleural effusion or pneumothorax. BONE:Unremarkable for age.? IMPRESSION: No acute abnormality.? Lab Data Lab results reviewed: Yes I reviewed the patient's lab results. Labs: 08/24/21 15:27 Urine - Reflex from Ua Urine Culture - Pending Laboratory Tests Range/Units 08/24/21 08/24/21 08/24/21 14:40 14:40 14:40 WBC (4.4-10.8) 10^3/uL RBC (4.36-5.78) 10^6/uL Hgb (13.5-17.5) g/dL Hct (40.0-50.0) % MCV (80-95) fL MCH (27.0-33.0) pg MCHC (32.0-36.0) % RDW (11.8-14.1) % Plt Count (130-400) 10^3/uL MPV (8.0-11.0) fL Immature Gran % Neutrophils % Band Neutrophils % Lymphocytes % Monocytes % Eosinophils % Basophils % Nucleated RBC % % Absolute Neutrophils (1.2-6.7) 10^3/uL Absolute Lymphocytes (1.2-3.4) 10^3/uL Absolute Monocytes (0.1-0.8) 10^3/uL Absolute Eosinophils (0.0-0.7) 10^3/uL Absolute Basophils (0.0-0.2) 10^3/uL RBC Morphology Macrocytosis VBG pH (7.31-7.41) 7.09 L* VBG pCO2 (41-51) mmHg 36 L VBG pO2 mmHg 58 VBG HCO3 (23-28) mmol/L 11 L VBG Total CO2 (24-29) mmol/L 11 L VBG O2 Saturation % 77 VBG Base Excess (-2-3) mmol/L < -15 L VBG Lactate (0.6-1.4) mmol/L 5.5 H* Sodium (136-145) mmol/L 146 H Potassium (3.5-5.1) mmol/L 8.2 H* Chloride (98-107) mmol/L 95 L Carbon Dioxide (21.0-32.0) mmol/L 11.2 L Anion Gap (3-11) mmol/L 39.8 H BUN (7-18) mg/dL 75 H Creatinine (0.70-1.30) mg/dL 5.3 H* Estimated GFR/1.73 m2 (mL/min/1.73m2) 11.59 Glucose (74-106) mg/dL 1627 H* Calcium (8.5-10.1) mg/dL 9.8 Magnesium (1.8-2.4) mg/dL 5.0 H* Total Bilirubin (0.2-1.0) mg/dL 1.2 H AST (15-37) U/L 33 ALT (16-63) U/L 39 Alkaline Phosphatase (46-116) U/L 201 H Troponin I (<or=60) ng/L < 50 Total Protein (6.4-8.2) g/dL 8.4 H Albumin (3.4-5.0) g/dL 3.9 Urine Color (Yellow) Urine Clarity (Clear) Urine pH (5-8) Ur Specific [place] (1.005-1.025) Urine Protein (Negative) mg/dL Urine Ketones (Negative) mg/dL Urine Blood (Negative) Urine Nitrite (Negative) Urine Bilirubin (Negative) Urine Urobilinogen (Up TO 0.2) EU/dL Ur Leukocyte Esterase (Negative) Urine RBC (0-2) HPF Urine WBC (0-5) HPF Ur Epithelial Cells (Negative) HPF Urine Crystals (Negative) HPF Urine Bacteria (Negative) HPF Urine Casts (Negative) LPF Urine Mucus (Negative) Ur Culture Indicated? Urine Glucose (Negative) mg/dL Urine Opiates Screen (Negative) Urine Methadone Screen (Negative) Ur Barbiturates Screen (Negative) Ur Tricyclics Screen (Negative) Ur Amphetamines Screen (Negative) U Benzodiazepines Scrn (Negative) Urine Cocaine Screen (Negative) Ur THC Screen (Negative) COVID-19 Source SARS-CoV-2 (PCR) (Negative) Range/Units 08/24/21 08/24/21 08/24/21 14:40 15:27 15:27 WBC (4.4-10.8) 10^3/uL 14.94 H RBC (4.36-5.78) 10^6/uL 3.89 L Hgb (13.5-17.5) g/dL 12.6 L Hct (40.0-50.0) % 46.7 MCV (80-95) fL 120.1 H MCH (27.0-33.0) pg 32.4 MCHC (32.0-36.0) % 27.0 L RDW (11.8-14.1) % 14.5 H Plt Count (130-400) 10^3/uL 181 MPV (8.0-11.0) fL 11.5 H Immature Gran % 0.0 Neutrophils % 58.0 Band Neutrophils % 8 Lymphocytes % 24.0 Monocytes % 10.0 Eosinophils % 0.0 Basophils % 0.0 Nucleated RBC % % 0 Absolute Neutrophils (1.2-6.7) 10^3/uL 9.86 H Absolute Lymphocytes (1.2-3.4) 10^3/uL 3.59 H Absolute Monocytes (0.1-0.8) 10^3/uL 1.49 H Absolute Eosinophils (0.0-0.7) 10^3/uL 0.00 Absolute Basophils (0.0-0.2) 10^3/uL 0.00 RBC Morphology See Below Macrocytosis 1+ VBG pH (7.31-7.41) VBG pCO2 (41-51) mmHg VBG pO2 mmHg VBG HCO3 (23-28) mmol/L VBG Total CO2 (24-29) mmol/L VBG O2 Saturation % VBG Base Excess (-2-3) mmol/L VBG Lactate (0.6-1.4) mmol/L Sodium (136-145) mmol/L 153 H Potassium (3.5-5.1) mmol/L 4.0 D Chloride (98-107) mmol/L 116 H Carbon Dioxide (21.0-32.0) mmol/L 7.7 L Anion Gap (3-11) mmol/L 29.3 H BUN (7-18) mg/dL 45 H D Creatinine (0.70-1.30) mg/dL 2.9 H D Estimated GFR/1.73 m2 (mL/min/1.73m2) 23.24 Glucose (74-106) mg/dL 1630 H* Calcium (8.5-10.1) mg/dL < 5.0 L* Magnesium (1.8-2.4) mg/dL Total Bilirubin (0.2-1.0) mg/dL 0.6 AST (15-37) U/L 18 ALT (16-63) U/L 20 Alkaline Phosphatase (46-116) U/L 93 Troponin I (<or=60) ng/L Total Protein (6.4-8.2) g/dL 3.9 L Albumin (3.4-5.0) g/dL 1.7 L Urine Color (Yellow) Yellow Urine Clarity (Clear) Clear Urine pH (5-8) 5.5 Ur Specific [place] (1.005-1.025) 1.015 Urine Protein (Negative) mg/dL 100 H Urine Ketones (Negative) mg/dL 15 H Urine Blood (Negative) Large H Urine Nitrite (Negative) Negative Urine Bilirubin (Negative) Small H Urine Urobilinogen (Up TO 0.2) EU/dL 0.2 Ur Leukocyte Esterase (Negative) Negative Urine RBC (0-2) HPF 20-50 H Urine WBC (0-5) HPF 3-5 Ur Epithelial Cells (Negative) HPF Few Urine Crystals (Negative) HPF Negative Urine Bacteria (Negative) HPF Moderate Urine Casts (Negative) LPF Negative Urine Mucus (Negative) Trace Ur Culture Indicated? Yes Urine Glucose (Negative) mg/dL >=1000 H Urine Opiates Screen (Negative) Urine Methadone Screen (Negative) Ur Barbiturates Screen (Negative) Ur Tricyclics Screen (Negative) Ur Amphetamines Screen (Negative) U Benzodiazepines Scrn (Negative) Urine Cocaine Screen (Negative) Ur THC Screen (Negative) COVID-19 Source SARS-CoV-2 (PCR) (Negative) Range/Units 08/24/21 08/24/21 08/24/21 16:30 16:50 17:55 WBC (4.4-10.8) 10^3/uL RBC (4.36-5.78) 10^6/uL Hgb (13.5-17.5) g/dL Hct (40.0-50.0) % MCV (80-95) fL MCH (27.0-33.0) pg MCHC (32.0-36.0) % RDW (11.8-14.1) % Plt Count (130-400) 10^3/uL MPV (8.0-11.0) fL Immature Gran % Neutrophils % Band Neutrophils % Lymphocytes % Monocytes % Eosinophils % Basophils % Nucleated RBC % % Absolute Neutrophils (1.2-6.7) 10^3/uL Absolute Lymphocytes (1.2-3.4) 10^3/uL Absolute Monocytes (0.1-0.8) 10^3/uL Absolute Eosinophils (0.0-0.7) 10^3/uL Absolute Basophils (0.0-0.2) 10^3/uL RBC Morphology Macrocytosis VBG pH (7.31-7.41) VBG pCO2 (41-51) mmHg VBG pO2 mmHg VBG HCO3 (23-28) mmol/L VBG Total CO2 (24-29) mmol/L VBG O2 Saturation % VBG Base Excess (-2-3) mmol/L VBG Lactate (0.6-1.4) mmol/L Sodium (136-145) mmol/L 149 H Potassium (3.5-5.1) mmol/L 5.8 H D Chloride (98-107) mmol/L 102 Carbon Dioxide (21.0-32.0) mmol/L 12.0 L Anion Gap (3-11) mmol/L 35.0 H BUN (7-18) mg/dL 77 H D Creatinine (0.70-1.30) mg/dL 5.1 H* D Estimated GFR/1.73 m2 (mL/min/1.73m2) 12.12 Glucose (74-106) mg/dL 1483 H* Calcium (8.5-10.1) mg/dL 8.8 Magnesium (1.8-2.4) mg/dL Total Bilirubin (0.2-1.0) mg/dL AST (15-37) U/L ALT (16-63) U/L Alkaline Phosphatase (46-116) U/L Troponin I (<or=60) ng/L Total Protein (6.4-8.2) g/dL Albumin (3.4-5.0) g/dL Urine Color (Yellow) Urine Clarity (Clear) Urine pH (5-8) Ur Specific [place] (1.005-1.025) Urine Protein (Negative) mg/dL Urine Ketones (Negative) mg/dL Urine Blood (Negative) Urine Nitrite (Negative) Urine Bilirubin (Negative) Urine Urobilinogen (Up TO 0.2) EU/dL Ur Leukocyte Esterase (Negative) Urine RBC (0-2) HPF Urine WBC (0-5) HPF Ur Epithelial Cells (Negative) HPF Urine Crystals (Negative) HPF Urine Bacteria (Negative) HPF Urine Casts (Negative) LPF Urine Mucus (Negative) Ur Culture Indicated? Urine Glucose (Negative) mg/dL Urine Opiates Screen (Negative) Negative Urine Methadone Screen (Negative) Negative Ur Barbiturates Screen (Negative) Negative Ur Tricyclics Screen (Negative) Negative Ur Amphetamines Screen (Negative) Negative U Benzodiazepines Scrn (Negative) Negative Urine Cocaine Screen (Negative) Negative Ur THC Screen (Negative) Negative COVID-19 Source Nasal/Nares SARS-CoV-2 (PCR) (Negative) Negative Range/Units 08/24/21 08/24/21 08/24/21 18:00 19:00 19:00 WBC (4.4-10.8) 10^3/uL RBC (4.36-5.78) 10^6/uL Hgb (13.5-17.5) g/dL Hct (40.0-50.0) % MCV (80-95) fL MCH (27.0-33.0) pg MCHC (32.0-36.0) % RDW (11.8-14.1) % Plt Count (130-400) 10^3/uL MPV (8.0-11.0) fL Immature Gran % Neutrophils % Band Neutrophils % Lymphocytes % Monocytes % Eosinophils % Basophils % Nucleated RBC % % Absolute Neutrophils (1.2-6.7) 10^3/uL Absolute Lymphocytes (1.2-3.4) 10^3/uL Absolute Monocytes (0.1-0.8) 10^3/uL Absolute Eosinophils (0.0-0.7) 10^3/uL Absolute Basophils (0.0-0.2) 10^3/uL RBC Morphology Macrocytosis VBG pH (7.31-7.41) VBG pCO2 (41-51) mmHg VBG pO2 mmHg VBG HCO3 (23-28) mmol/L VBG Total CO2 (24-29) mmol/L VBG O2 Saturation % VBG Base Excess (-2-3) mmol/L VBG Lactate (0.6-1.4) mmol/L 3.3 H* Sodium (136-145) mmol/L 151 H 153 H Potassium (3.5-5.1) mmol/L 5.1 5.0 Chloride (98-107) mmol/L 105 106 Carbon Dioxide (21.0-32.0) mmol/L 13.8 L 18.4 L Anion Gap (3-11) mmol/L 32.2 H 28.6 H BUN (7-18) mg/dL 73 H 70 H Creatinine (0.70-1.30) mg/dL 5.0 H* 4.9 H* Estimated GFR/1.73 m2 (mL/min/1.73m2) 12.40 12.69 Glucose (74-106) mg/dL 1401 H* 1408 H* Calcium (8.5-10.1) mg/dL 8.3 L 8.3 L Magnesium (1.8-2.4) mg/dL Total Bilirubin (0.2-1.0) mg/dL AST (15-37) U/L ALT (16-63) U/L Alkaline Phosphatase (46-116) U/L Troponin I (<or=60) ng/L Total Protein (6.4-8.2) g/dL Albumin (3.4-5.0) g/dL Urine Color (Yellow) Urine Clarity (Clear) Urine pH (5-8) Ur Specific [place] (1.005-1.025) Urine Protein (Negative) mg/dL Urine Ketones (Negative) mg/dL Urine Blood (Negative) Urine Nitrite (Negative) Urine Bilirubin (Negative) Urine Urobilinogen (Up TO 0.2) EU/dL Ur Leukocyte Esterase (Negative) Urine RBC (0-2) HPF Urine WBC (0-5) HPF Ur Epithelial Cells (Negative) HPF Urine Crystals (Negative) HPF Urine Bacteria (Negative) HPF Urine Casts (Negative) LPF Urine Mucus (Negative) Ur Culture Indicated? Urine Glucose (Negative) mg/dL Urine Opiates Screen (Negative) Urine Methadone Screen (Negative) Ur Barbiturates Screen (Negative) Ur Tricyclics Screen (Negative) Ur Amphetamines Screen (Negative) U Benzodiazepines Scrn (Negative) Urine Cocaine Screen (Negative) Ur THC Screen (Negative) COVID-19 Source SARS-CoV-2 (PCR) (Negative) ECG Data Attestation: I personally reviewed and interpreted this ECG (s) as follows: Interpretation: rate of 85, sinus, normal axis, no STEMI. HPI General Date/Time Provider Initiated Documentation: 08/24/21 14:12 . Limitations to Documentation: altered mental status . Information obtained by: EMS . HPI Narrative: Patient is a 50-year-old male with a history of type 1 diabetes with previous admissions for DKA presented as a stroke alert per EMS. EMS reported a glucose of 300-400. His blood pressure was 60/40. There was no reported focal deficits. Mom had called EMS when she noted patient unresponsive. EMS reports that he has been moving all extremities but not verbally responding. Related Data Home Medications Medication Instructions Recorded Confirmed atorvastatin 40 mg tablet 40 mg PO QHS 08/24/21 08/24/21 cyclobenzaprine 10 mg tablet 10 mg PO HS PRN 08/24/21 08/24/21 diltiazem HCl 120 mg capsule,24 120 mg PO DAILY 08/24/21 08/24/21 hr,extended release duloxetine 30 mg capsule,delayed 30 mg PO DAILY 08/24/21 08/24/21 release ergocalciferol (vitamin D2) 1,250 1,250 mcg PO QWEEK 08/24/21 08/24/21 mcg (50,000 unit) capsule folic acid 1 mg tablet 1 mg PO DAILY 08/24/21 08/24/21 insulin aspart U-100 100 unit/mL 3 - 30 sliding scale dose SUBCUT 08/24/21 08/24/21 (3 mL) subcutaneous pen (Novolog QMEALS Flexpen U-100 Insulin aspart) insulin glargine 100 unit/mL (3 60 unit SUBCUT DAILY 08/24/21 08/24/21 mL) subcutaneous pen (Lantus Solostar U-100 Insulin) multivitamin 1 tab PO DAILY 08/24/21 08/24/21 nicotine 14 mg/24 hr daily 1 patch TRANSDERMAL DAILY 08/24/21 08/24/21 transdermal patch sildenafil 50 mg tablet 50 mg PO DAILY PRN 08/24/21 08/24/21 Allergies Allergy/AdvReac Type Severity Reaction Status Date / Time lisinopril Allergy Other (See Unverified 08/24/21 16:11 Comment) General Stated Complaint: AMS/LOC CHARLINE: 2 Review of Systems Unobtainable due to mental status PFSH All Active Problems (Updated 08/24/21 @ 16:51 by Karyna Jain DO) DKA (diabetic ketoacidosis) (Acute) Altered mental status (Acute) Vomiting (Acute) Thrombocytopenia (Chronic) Elevated liver enzymes (Acute) DKA (diabetic ketoacidosis) (Acute) Hyperkalemia (Acute) Sinusitis (Acute) Screening for colon cancer (Acute) Family history of colon cancer (Acute) Smoker (Chronic) Sinus pressure (Acute) Discharge planning issues (Acute) DVT prophylaxis (Acute) Diabetes mellitus type 2, uncontrolled, without complications (Chronic) Chronic back pain (Chronic) Acute hyponatremia (Acute) Dehydration (Acute) Acidosis (Acute) Nausea (Acute) Alcohol withdrawal (Acute) Hyponatremia (Acute) Hypokalemia (Acute) Hypocalcemia (Acute) Phlegmon of pancreas (Acute) Cervical adenitis (Acute) Medical History (Updated 08/24/21 @ 16:51 by Karyna Jain DO) Alcohol abuse Essential hypertension Hyperlipidemia Type 1 diabetes Surgical History No significant past surgical history Family History Other Colon cancer Heart disease Social History Smoking/Tobacco Use Status: Current every day Tobacco Type: cigarettes Smoking risk assessment performed?: Yes Alcohol Intake: current Alcohol Intake frequency: holidays/special occasions only Drug use: Never Substance use type: does not use Current gender identity: male Do you feel safe at home: Yes Do you feel safe in your relationship?: Yes Additional Social history: lives with fiance, mother, and one daugther in country in [place], [place]. Retired career [employer], was stationed in [place], went through [employer] training. Exam Const Nutritional Appearance: average body habitus Orientation: other (unresponsive but arousable to verbal and tactile stimuli; intact gag reflex) [facility] Head: normal to inspection Ears: hearing grossly normal bilaterally and external ears normal General nose exam: external nose normal Face and sinus: normal facial exam Mouth: mucous membranes dry Eyes General: appearance normal, both eyes and all related structures Eyelids: eyelids normal Pupils: PERRL Neck Neck: normal visual inspection, supple and No submandibular swelling Chest Chest: normal inspection of the chest Resp Auscultation: clear to auscultation bilaterally Cardio Rate: regular rate Rhythm: regular rhythm GI Inspection: normal to inspection Palpation: soft, not firm, no guarding, no hepatosplenomegaly, no masses and nontender Auscultation: hypoactive bowel sounds Male General Exam: Yes normal external exam Back/Spine/Pelvis Thoracic/Lumbar Spine: thoracic and lumbar spine normal to inspection Skin General skin exam: no rashes or lesions noted Neuro General: other (unresponsive but responds to verbal/tactile stimuli; follows some commands) Extrem General: normal to inspection, full ROM and capillary refill normal Psych Appearance: grossly normal Critical Care Time Critical Care Time Critical Care Time: Yes Total Critical Care Time: 180 Attestation: I spent 180 minutes of critical care time with this patient. This does not include time spent on separately reported billable procedures. Sign Out Sign Out Data: Sign Out Comment: Patient accepted to [facility] ICU for DKA. Continue to monitor while awaiting transfer. Can continue to bolus with normal saline. Continue insulin drip at 4.5 units/hr. Last updated by Karyna Jain DO at 08/24/21 20:26
--- NOTE | 2021-08-24 14:30 | RT.EKG_ITS ---
APPROVED REPORT Exam: Resting ECG Reason for Exam: tachycardia Patient Location: E HR:85 bpm ECG Measurements Heart Rate 85 AXIS [place] 149 P 48 QRSd 100 QRS 48 QT 418 T 40 QTc 498 Conclusion Sinus rhythm...normal P axis, V-rate 60- [address] depression, diffuse leads...ST <-0.07mV, ant/lat/inf. Sinus. Normal axis. No STEMI. I have reviewed and interpreted ECG and agree with software generated interpretation.
[2021-08-24 14:52] LABS: HCO3 (Venous) 11 mmol/L (23-28); O2 Sat (Venous) 77 %; TCO2 (Venous) 11 mmol/L (24-29); pCO2 (Venous) 36 mmHg (41-51); pO2 (Venous) 58 mmHg
[2021-08-24 14:53] LABS: HCT 46.7 % (40.0-50.0); HGB 12.6 g/dL (13.5-17.5); MCH 32.4 pg (27.0-33.0); MCV 120.1 fL (80-95); MPV 11.5 fL (8.0-11.0); Nucleated RBC 0 %; Platelet Count 181 10^3/uL (130-400); RBC 3.89 10^6/uL (4.36-5.78); RDW 14.5 % (11.8-14.1); RDW-SD 65.8 fL; WBC 14.94 10^3/uL (4.4-10.8); pH (Venous) 7.09 (7.31-7.41)
[2021-08-24 14:56] LABS: Lactate 5.5 mmol/L (0.6-1.4)
[2021-08-24] MEDS: Normal Saline 1,000 ML 1000 ML IV ×3 (15:10→20:09)
[2021-08-24 15:12] LABS: Absolute Neutrophil Count 9.86 10^3/uL (1.2-6.7); Bands % 8
[2021-08-24 15:13] LABS: Absolute Lymphocyte Count 3.59 10^3/uL (1.2-3.4); Absolute Monocyte Count 1.49 10^3/uL (0.1-0.8); Diff Comment Manual Differential; Macrocytosis 1+
[2021-08-24 15:15] LABS: ALT 39 U/L (16-63); AST 33 U/L (15-37); Albumin 3.9 g/dL (3.4-5.0); Alkaline Phosphatase 201 U/L (46-116); Anion Gap 39.8 mmol/L (3-11); BUN 75 mg/dL (7-18); Bilirubin, Total 1.2 mg/dL (0.2-1.0); CO2 11.2 mmol/L (21.0-32.0); Calcium 9.8 mg/dL (8.5-10.1); Chloride 95 mmol/L (98-107); Estimated GFR 11.59 (mL/min/1.73m2); Sodium 146 mmol/L (136-145); Total Protein 8.4 g/dL (6.4-8.2); Troponin I < 50 ng/L (<or=60)
[2021-08-24 15:23] LABS: CREATININE 5.3 mg/dL (0.70-1.30); Potassium 8.2 mmol/L (3.5-5.1)
--- NOTE | 2021-08-24 15:26 | NUR.NOTE ---
Nursing Note: In to see pt, initial bag IVF complete, pt minimally responsive, BP 69/42, provider notified, additional IVF bolus ordered and hung, monitors maintained, straight cath done per provider verbal order to obtain UA, repeat labs drawn, urine & blood sent to lab. pt repsonding to tactile stimulation, orders recieved for insulin, see EMAR, cont. to monitor.
[2021-08-24] MEDS: Insulin REGULAR-Human 100 UNITS/ML UNIT 10 UNITS IV (15:31)
[2021-08-24 15:37] LABS: Bilirubin Small (Negative); Blood Large (Negative); Clarity Clear (Clear); Glucose >=1000 mg/dL (Negative); Ketones 15 mg/dL (Negative); Leukocyte Esterase Negative (Negative); Nitrite Negative (Negative); Specific Gravity 1.015 (1.005-1.025); Urobilinogen 0.2 EU/dL (Up TO 0.2); pH 5.5 (5-8)
[2021-08-24 15:37] LABS: Glucose 1627 mg/dL (74-106)
[2021-08-24 15:43] LABS: Bacteria Moderate HPF (Negative); C & S Indicated? Yes; Casts Negative LPF (Negative); Crystals Negative HPF (Negative); Epithelial Cells Few HPF (Negative); Mucus Trace (Negative); RBC 20-50 HPF (0-2)
[2021-08-24 16:00] LABS: ALT 20 U/L (16-63); AST 18 U/L (15-37); Albumin 1.7 g/dL (3.4-5.0); Alkaline Phosphatase 93 U/L (46-116); BUN 45 mg/dL (7-18); Bilirubin, Total 0.6 mg/dL (0.2-1.0); CO2 7.7 mmol/L (21.0-32.0); CREATININE 2.9 mg/dL (0.70-1.30); Chloride 116 mmol/L (98-107); Estimated GFR 23.24 (mL/min/1.73m2); Total Protein 3.9 g/dL (6.4-8.2)
[2021-08-24] MEDS: INSULIN REGULAR IN 0.9 % NACL 100 UNIT/100 ML BAG 6.68 UNIT IV (16:13)
--- NOTE | 2021-08-24 16:16 | NUR.NOTE ---
Nursing Note: 2nd liter IVF infused, VS as recorded, pt more responsive, opening eyes at times and moving in bed, fingerstick blood sugar checked & reads hi, provider aware, 3rd NS IVF bolus hung & insulin drip initiated as ordered. Prior to being able to start insulin drip pt transferred to different stretcher in order to get weight of 66.8kg needed for insulin drip, cont. to monitor.
[2021-08-24 16:30] LABS: Anion Gap 29.3 mmol/L (3-11); Sodium 153 mmol/L (136-145)
[2021-08-24 16:33] LABS: Calcium < 5.0 mg/dL (8.5-10.1); Glucose 1630 mg/dL (74-106)
[2021-08-24] MEDS: Normal Saline 1,000 ML 150 ML IV (16:34)
[2021-08-24 16:35] LABS: Source Nasal/Nares
--- NOTE | 2021-08-24 16:35 | NUR.NOTE ---
Addendum entered by Brooke Guerrero 08/24/21 16:38: correction 4th bag NS, initial bag by EMS, 3rd bag NS by this copy writer. Original Note: Nursing Note: 3rd NS IVF hung @ 150/hr per provider, pt cont. to be slightly more responsive but still unable to speak when asked questions, Covid swab obtained & sent to lab, continue to monitor.
--- NOTE | 2021-08-24 16:52 | NUR.NOTE ---
Nursing Note: Pt BP dipping to 70's systolic, provider aware, IVF increased to bolus, CMP re-drawn per order & sent to lab, cont. to monitor.
[2021-08-24] MEDS: POTASSIUM CHLORIDE 10 MEQ/100 ML BAG 100 MEQ IVPB (16:58)
[2021-08-24 17:08] LABS: BUN 77 mg/dL (7-18); Calcium 8.8 mg/dL (8.5-10.1); Chloride 102 mmol/L (98-107); Estimated GFR 12.12 (mL/min/1.73m2); Sodium 149 mmol/L (136-145)
[2021-08-24 17:13] LABS: COVID-19 PCR Negative (Negative)
[2021-08-24 17:21] LABS: CREATININE 5.1 mg/dL (0.70-1.30); Glucose 1483 mg/dL (74-106)
[2021-08-24 17:27] LABS: Potassium 5.8 mmol/L (3.5-5.1)
--- NOTE | 2021-08-24 17:29 | NUR.NOTE ---
Nursing Note: Repeat labs recieved, glucose 1483, K+ 5.8, IV potassium stopped per provider, 5th IVF NS hung at 200 per hour and 16fr estrada cath placed, awaiting orders for insulin drip, cont. to monitor.
[2021-08-24] MEDS: Normal Saline 1,000 ML 200 ML IV (17:30)
--- NOTE | 2021-08-24 17:45 | NUR.NOTE ---
Nursing Note: Per provider no change in insulin drip at this time, continue @ 6.68u/hr, will continue to do hourly blood draws as fingerstick glucose monitor does not read over 400. Pt is responsive to voice and attempts to answer but unable to state name or where he is, etc.
[2021-08-24 18:16] LABS: Anion Gap 32.2 mmol/L (3-11); BUN 73 mg/dL (7-18); CO2 13.8 mmol/L (21.0-32.0); Calcium 8.3 mg/dL (8.5-10.1); Chloride 105 mmol/L (98-107); Potassium 5.1 mmol/L (3.5-5.1); Sodium 151 mmol/L (136-145)
[2021-08-24] MEDS: INSULIN REGULAR IN 0.9 % NACL 100 UNIT/100 ML BAG IV ×2 (18:22→20:15)
--- NOTE | 2021-08-24 18:24 | NUR.NOTE ---
Nursing Note:Per provider insulin drip decreased to 3.34u/hr, awaiting blood work, IVF decreased to 100ml/hr. Pt is answering when spoken to but not alert & oriented, cont. to monitor.
[2021-08-24 18:28] LABS: Glucose 1401 mg/dL (74-106)
--- NOTE | 2021-08-24 18:30 | NUR.NOTE ---
Nursing Note:Recieved BMP results, per provider no change to insulin, glucose 1401 at this time, cont. insulin at 3.34u/hr, IVF 250 bolus d/t BP 80's systolic, repeat BMP & lactate @ 1900.
[2021-08-24 18:46] LABS: *AMPHETAMINES SCREEN URINE Negative (Negative); *BARBITURATES SCREEN URINE Negative (Negative); *BENZODIAZEPINES SCREEN URINE Negative (Negative); Cannabinoids THC Negative (Negative); Cocaine Screen,Urine Negative (Negative); METHADONE URINE SCREEN Negative (Negative); OPIATES URINE SCREEN Negative (Negative)
[2021-08-24 18:48] LABS: Tricyclic Antidepressants Negative (Negative)
[2021-08-24] MEDS: SODIUM CHLORIDE 0.45% 1,000 ML 100 ML IV (18:55)
[2021-08-24 19:11] LABS: Lactate 3.3 mmol/L (0.6-1.4)
--- NOTE | 2021-08-24 19:17 | NUR.NOTE ---
Nursing Note:IVF changed to 0.45% NS @ 100/hr per provider, blood drawn for repeat BMP & Lactate and sent to lab, VS as recorded, no change in pt mentation at this time, provider in to ultrasound heart, continue to monitor. [facility] called to recieve report on medications pt currently recieving - insulin @ 3.34u/hr and 0.45% NS @ 100/hr, approximately 1 1/2 hour ETA for transport, provider aware.
[2021-08-24 19:24] LABS: Anion Gap 28.6 mmol/L (3-11); BUN 70 mg/dL (7-18); CO2 18.4 mmol/L (21.0-32.0); Calcium 8.3 mg/dL (8.5-10.1); Chloride 106 mmol/L (98-107); Estimated GFR 12.69 (mL/min/1.73m2); Sodium 153 mmol/L (136-145)
--- NOTE | 2021-08-24 19:30 | NUR.NOTE ---
Nursing Note:Provider aware of lactate improved to 3.3, cont. in room doing bedside cardiac ultrasound. Verbal order received to increase IVF to bolus rate, 0.45% NS infusing at 999/hr, BP remains in *)'ssystolic, awaiting BMP results, continue to monitor.
[2021-08-24 19:39] LABS: CREATININE 4.9 mg/dL (0.70-1.30); Glucose 1408 mg/dL (74-106)
--- NOTE | 2021-08-24 19:40 | NUR.NOTE ---
Nursing Note:BMP results recieved, refer to lab results, glucose 1408 at this time, provider aware of abnormal labs, no change in orders at this time, continue with hourly blood draws at this time. BP remains in 80's systolic, see V/S documented, no change in pt mentation at this time, cont. to monitor.
--- NOTE | 2021-08-24 20:11 | NUR.NOTE ---
Nursing Note: Repeat BMP drawn & sent to lab, per provider 0.45NS decreased to 125cc/hr, additional NS bolus hun (7th bag of IVF to note) and insulin drip increased to 4.5u/hr, pt responds to verbal commands but does not follow instructions or answer questions appropriately, cont. to monitor.
[2021-08-24] MEDS: SODIUM CHLORIDE 0.45% 1,000 ML 125 ML IV (20:16)
[2021-08-24 20:19] LABS: Anion Gap 25.5 mmol/L (3-11); BUN 70 mg/dL (7-18); CO2 19.5 mmol/L (21.0-32.0); Calcium 8.5 mg/dL (8.5-10.1); Chloride 107 mmol/L (98-107); Estimated GFR 13.31 (mL/min/1.73m2); Potassium 5.1 mmol/L (3.5-5.1); Sodium 152 mmol/L (136-145)
--- NOTE | 2021-08-24 20:19 | NUR.NOTE ---
Nursing Note:Fox catheter emptied 500cc orange tinged urine, provider aware.
[2021-08-24 20:30] LABS: CREATININE 4.7 mg/dL (0.70-1.30); Glucose 1217 mg/dL (74-106)
[2021-08-24] MEDS: Pantoprazole 40 MG VIAL 80 MG IVP (20:52)
[2021-08-24] MEDS: Normal Saline 100 ML 200 ML (20:52)
--- NOTE | 2021-08-24 20:55 | NUR.NOTE ---
Nursing Note:Upon arrival of [facility] team pt vomitted small amount brown tinged fluid, report given to transfer team.
== END 2021-08-24 20:57 | disposition other institution (70) ==
PROVIDERS: Physician Assistant; Emergency Provider Emergency Medicine; PCP Family Medicine
DX: E10.10 Type 1 diabetes mellitus with ketoacidosis without coma (principal); R41.82 Altered mental status, unspecified; E87.5 Hyperkalemia; I95.9 Hypotension, unspecified
CPT/HCPCS: 36415; 36416; 80048; 80053; 80307; 82805; 82962; 87635; 93005; 96361; 96365; 96366; 96368; 96374; 96376; 99291; 99292; 70450; 71045; 81003; 81015; 83605; 83735; 84484; 85025; 87086; 93010; J3480